=== PATIENT | female | born 1955 | race African-American/Black ===

== ENCOUNTER → 2020-05-05 15:02 | Outpatient (BNVA) | payer OTHER, SELFPAY | PROVIDERS: PCP Internal Medicine; Referring Provider Internal Medicine; Visit Provider Anesthesiology | DX: M47.816 Spondylosis without myelopathy or radiculopathy, lumbar region (principal); L40.9 Psoriasis, unspecified; M79.7 Fibromyalgia; M15.9 Polyosteoarthritis, unspecified | CPT/HCPCS: 99204 ==

== ENCOUNTER → 2020-06-02 09:30 | Outpatient (BNVA) | payer OTHER, SELFPAY | PROVIDERS: PCP Internal Medicine; Referring Provider Internal Medicine; Visit Provider Internal Medicine | DX: G47.33 Obstructive sleep apnea (adult) (pediatric) (principal); E66.9 Obesity, unspecified; Z99.89 Dependence on other enabling machines and devices | CPT/HCPCS: 99212 ==

== ENCOUNTER → 2020-06-09 08:11 | Outpatient (BNVA) | payer OTHER, SELFPAY | PROVIDERS: PCP Internal Medicine; Referring Provider Internal Medicine; Visit Provider Dietitian, Registered | DX: Z76.89 Persons encountering health services in other specified circumstances (principal) ==

== ENCOUNTER → 2020-07-10 11:31 | Outpatient (BNVA) | payer OTHER, SELFPAY | PROVIDERS: PCP Internal Medicine; Referring Provider Internal Medicine; Visit Provider Surgery | DX: K91.2 Postsurgical malabsorption, not elsewhere classified (principal); E66.9 Obesity, unspecified; Z68.30 Body mass index [BMI] 30.0-30.9, adult; Z90.3 Acquired absence of stomach [part of] | CPT/HCPCS: 99212 ==

== ENCOUNTER 2020-07-15 12:08 | Outpatient (REF) | payer OTHER, SELFPAY ==
[2020-07-15 13:11] LABS: Basophils Percent Auto 0.3 % (0-2); Eosinophils Percent Auto 0.6 % (0-4); Hematocrit 41.7 % (37-47); Hemoglobin 13.1 g/dl (12.0-16.0); Lymphocytes Absolute Auto 1.2 X10*3/uL (1.2-4.9); Lymphocytes Percent Auto 36.3 % (20-40); Mean Corpuscular HGB Conc 31.4 g/dl (31.0-35.0); Mean Corpuscular Hemoglobin 27.2 pg (27.0-33.0); Mean Corpuscular Volume 86.7 fL (80-98); Mean Platelet Volume 10.6 fL (9.4-12.3); Monocytes Absolute Auto 0.3 X10*3/uL (0.1-1.2); Monocytes Percent Auto 7.7 % (2-11); Neutrophils Absolute Auto 1.9 X10*3/uL (2.0-8.3); Neutrophils Percent Auto 55.1 % (45-73); Platelet Count 156 X10*3/uL (160-400); Red Blood Count 4.81 X10*6/uL (4.20-5.50); Red Cell Distribution Width 15.2 % (11.0-16.0); White Blood Count 3.4 X10*3/uL (4.8-10.8)
[2020-07-15 13:13] LABS: MANUAL DIFF FLAG NO
[2020-07-15 13:35] LABS: C Reactive Protein 0.11 mg/dL (< or = 0.50)
[2020-07-15 13:36] LABS: Alanine Aminotransferase 15 U/L (0-31); Albumin Level 4.2 g/dL (3.5-5.0); Alkaline Phosphatase 65 U/L (39-117); Anion Gap 10 (12-20); Aspartate Amino Transferase 18 U/L (5-31); Bilirubin Total 0.6 mg/dL (0.0-1.0); Blood Urea Nitrogen 17 mg/dL (9-16); Calcium 8.9 mg/dL (8.4-10.2); Carbon Dioxide 36 mmol/L (22-29); Chloride 105 mmol/L (96-108); Cholesterol 213 mg/dL; Estimated Glomerular Filt Rate > 60; Glucose Fasting 80 mg/dL (60-99); HDL Cholesterol 55 mg/dL; Iron 89 mcg/dL (30-160); LDL Cholesterol Calculated 147 mg/dl; Percent Iron Saturation 35 % (15-50); Potassium 4.5 mmol/l (3.3-5.1); Sodium 146 mmol/L (135-145); Total Iron Binding Capacity 257 mcg/dL (228-428); Total Protein 6.9 g/dL (6.5-8.0); Triglycerides 57 mg/dL; Unsaturated Iron Binding 168 ug/dL
[2020-07-15 13:58] LABS: Thyroid Stimulating Hormone 1.16 uIU/mL (0.32-4.0); Vitamin D 25-OH Total 38.4 ng/mL (>30)
[2020-07-15 14:45] LABS: Vitamin B12 683 pg/mL (200-900)
[2020-07-19 12:23] LABS: Zinc 71 mcg/dL (60-130)
[2020-07-21 06:37] LABS: Vitamin B1 23 nmol/L (8-30)
[2020-07-21 16:48] LABS: Vitamin A 35 mcg/dL (38-98)
== END 2020-07-15 12:09 | disposition home or self-care (01) ==
LOC: HO.LAB 12:08
PROVIDERS: PCP Internal Medicine; Referring Provider Internal Medicine; Visit Provider Surgery
DX: M54.2 Cervicalgia (principal); I10 Essential (primary) hypertension
CPT/HCPCS: 36415; 80053; 80061; 82306; 82550; 82607; 83540; 84425; 84443; 84590; 84630; 85025; 86140

== ENCOUNTER → 2020-08-07 08:08 | Outpatient (BNVA) | payer MEDICARE, MEDICAID, SELFPAY | PROVIDERS: PCP Internal Medicine; Visit Provider Dietitian, Registered | DX: Z76.89 Persons encountering health services in other specified circumstances (principal) ==

== ENCOUNTER 2020-09-06 14:23 | Outpatient (REF) | payer MEDICARE, MEDICAID, SELFPAY ==
--- NOTE | ~2020-09-06 | MM_ITS ---
EXAMINATION: MM SCREENING DIGITAL BREAST TOMOSYNTHESIS, BILATERAL CLINICAL INFORMATION: Screening. Asymptomatic. Remote reduction mammoplasty, 1993. The lifetime risk of breast cancer based on the Tyrer-Cuzick Model is 9%. COMPARISON: Mammography: 04/07/2019, 01/21/2018, 12/28/2016 TECHNIQUE: Digital breast tomosynthesis is performed in both the craniocaudal and mediolateral oblique views along with computer-aided detection (CAD). Synthesized 2D images are generated from the tomosynthesis. FINDINGS: There are scattered areas of fibroglandular density (ACR BI-RADS breast composition Category b). There are no significant masses, abnormal calcifications, or other abnormalities. There is minor scarring and scattered bilateral benign round and rim calcifications again seen consistent with the remote reduction mammoplasty. No significant changes. MM/MM tomosynthesis screening BI IMPRESSION: No mammographic evidence of malignancy. ASSESSMENT: BI-RADS 2: Benign RECOMMENDATION: Routine annual mammography screening. This patient's information was entered into a reminder system with a target due date for their next mammogram.
== END 2020-09-06 14:24 | disposition home or self-care (01) ==
LOC: HO.MAMMO 14:23
PROVIDERS: Visit Provider Internal Medicine
DX: Z12.31 Encounter for screening mammogram for malignant neoplasm of breast (principal)
CPT/HCPCS: 77063; 77067

== ENCOUNTER 2020-10-21 12:09 | Outpatient (REF) | payer MEDICARE, MEDICAID, SELFPAY ==
[2020-10-27 10:31] LABS: Vitamin A 43 mcg/dL (38-98)
== END 2020-10-21 12:10 | disposition home or self-care (01) ==
LOC: HO.LAB 12:09
PROVIDERS: PCP Internal Medicine; Visit Provider Surgery
DX: Z01.818 Encounter for other preprocedural examination (principal); E50.9 Vitamin A deficiency, unspecified
CPT/HCPCS: 36415; 84590

== ENCOUNTER → 2020-12-01 09:04 | Outpatient (BNVA) | payer MEDICARE, MEDICAID, SELFPAY | PROVIDERS: PCP Internal Medicine; Visit Provider Internal Medicine | DX: E66.9 Obesity, unspecified (principal); G47.33 Obstructive sleep apnea (adult) (pediatric); Z99.89 Dependence on other enabling machines and devices | CPT/HCPCS: 99212 ==

== ENCOUNTER 2021-01-16 09:07 | Outpatient (REF) | payer MEDICARE, MEDICAID, SELFPAY ==
--- NOTE | 2021-01-16 10:44 | MHC.AU.HAS ---
Hearing Aid Evaluation Date of Visit: 01/16/21 Historical Information: Description of Hearing: Bilateral moderate sensorineural hearing loss at 2968-7851 Hz Current personal amplification information, if applicable: None Summary: Based on these test results, Quinten is not able to hear important consonant sounds of speech which will cause increasing difficulties understanding speech. She currently needs to use a speaker phone when communicating on any phone. Binaural hearing aids with bluetooth capability is recommended to facilitate communication. Medical clearance from Dr. Cash in chart Hearing Aid Prescription: Based on the individual?s shared listening needs, communication environments, dexterity, desire for connectivity, and personal preferences, the following prescription for amplification has been made: Right ear: Mid Level Java Developer: Phonak Model: [place] P 70 13T Battery Size: 13 Color: [place] Brown Milieu Coordinator: #1 Medium Type of Dome: Open Left ear: Mid Level Java Developer: Phonak Model: [place] P 70-13T Battery Size: 13 Color: [place] Brown Milieu Coordinator: #1 Medium Type of Dome: Open Plan of Care: Patient wishes to purchase hearing aids as prescribed Action Taken/Action Needed: Hearing Instrument Fitting to be scheduled when materials arrive Comments: Primary Diagnosis: H90.3 Bilateral Sensorineural Hearing Loss Signature: Provider: Parvin Sun, ANGELO-A
== END 2021-01-16 09:08 | disposition home or self-care (01) ==
LOC: HO.HAP 09:07
PROVIDERS: Visit Provider Internal Medicine
DX: Z46.1 Encounter for fitting and adjustment of hearing aid (principal); H90.3 Sensorineural hearing loss, bilateral
CPT/HCPCS: 92591

== ENCOUNTER → 2021-01-26 11:57 | Outpatient (BNVA) | payer MEDICARE, MEDICAID, SELFPAY | PROVIDERS: PCP Internal Medicine; Referring Provider Internal Medicine; Visit Provider Dietitian, Registered | DX: E66.9 Obesity, unspecified (principal); Z68.32 Body mass index [BMI] 32.0-32.9, adult | CPT/HCPCS: 97803 ==

== ENCOUNTER 2021-01-28 10:33 | Outpatient (REF) | payer MEDICARE, MEDICAID, SELFPAY | END 2021-01-28 10:34 | disposition home or self-care (01) | LOC: HO.HAP 10:33 | PROVIDERS: Visit Provider Internal Medicine | DX: Z46.1 Encounter for fitting and adjustment of hearing aid (principal); H90.3 Sensorineural hearing loss, bilateral | CPT/HCPCS: 92595; V5011; V5020; V5160; V5261; V5266 ==

== ENCOUNTER 2021-02-03 15:40 | Outpatient (REF) | payer MEDICARE, MEDICAID, SELFPAY ==
[2021-02-03 16:14] LABS: MANUAL DIFF FLAG NO
[2021-02-03 16:21] LABS: Basophils Percent Auto 0.4 % (0-2); Eosinophils Absolute Auto 0.1 X10*3/uL (0.0-0.4); Eosinophils Percent Auto 1.1 % (0-4); Hematocrit 40.9 % (37-47); Hemoglobin 13.1 g/dl (12.0-16.0); Imm Gran Abs Auto 0.01 X10*3/uL (0.00-0.03); Imm Gran Pct Auto 0.2 % (0.0-0.4); Lymphocytes Absolute Auto 1.2 X10*3/uL (1.2-4.9); Lymphocytes Percent Auto 25.5 % (20-40); Mean Corpuscular Hemoglobin 27.7 pg (27.0-33.0); Mean Corpuscular Volume 86.5 fL (80-98); Mean Platelet Volume 10.2 fL (9.4-12.3); Monocytes Absolute Auto 0.4 X10*3/uL (0.1-1.2); Monocytes Percent Auto 7.8 % (2-11); Neutrophils Absolute Auto 3.1 X10*3/uL (2.0-8.3); Platelet Count 156 X10*3/uL (160-400); Red Blood Count 4.73 X10*6/uL (4.20-5.50); Red Cell Distribution Width 14.6 % (11.0-16.0); White Blood Count 4.7 X10*3/uL (4.8-10.8)
[2021-02-03 16:41] LABS: Alanine Aminotransferase 16 U/L (0-31); Alkaline Phosphatase 73 U/L (39-117); Anion Gap 12 (12-20); Aspartate Amino Transferase 19 U/L (5-31); Bilirubin Total 0.6 mg/dL (0.0-1.0); Blood Urea Nitrogen 20 mg/dL (9-16); Calcium 9.4 mg/dL (8.4-10.2); Carbon Dioxide 28 mmol/L (22-29); Chloride 106 mmol/L (96-108); Estimated Glomerular Filt Rate > 60; Glucose Random 87 mg/dL (60-115); Sodium 142 mmol/L (135-145)
[2021-02-06 16:32] LABS: TS Negative Control Passed; TS Panel A 0; TS Panel B 1; TS Positive Control Passed; TSpotTB Negative (SeeBelow)
== END 2021-02-03 15:41 | disposition home or self-care (01) ==
LOC: HO.LAB 15:40
PROVIDERS: PCP Internal Medicine; Visit Provider Dermatology
DX: Z11.1 Encounter for screening for respiratory tuberculosis (principal); L40.0 Psoriasis vulgaris; Z79.899 Other long term (current) drug therapy
CPT/HCPCS: 36415; 80053; 85025; 86481

== ENCOUNTER 2021-03-27 12:00 | Outpatient (REF) | payer MEDICARE, MEDICAID, SELFPAY ==
--- NOTE | ~2021-03-27 | XR_ITS ---
EXAMINATION: XR knee RT 4V CLINICAL INFORMATION: Reason for Exam RIGHT KNEE PAIN COMPARISON: None available at the time of this dictation. TECHNIQUE: frontal, lateral, tunnel and patella sunrise views FINDINGS: BONES: No fracture or dislocation is present. JOINTS: Narrowing of joint spaces and developed osteophytes from the edges of articular surfaces suggest degenerative osteoarthritis. Degenerative osteoarthritic changes of the patellofemoral joint. SOFT TISSUE: Normal XR/XR knee RT 4V IMPRESSION: Tricompartmental moderate to severe degenerative osteoarthritis.
[2021-03-27 13:15] LABS: MANUAL DIFF FLAG NO
[2021-03-27 13:28] LABS: Basophils Percent Auto 0.3 % (0-2); Eosinophils Percent Auto 0.8 % (0-4); Hematocrit 43.2 % (37-47); Hemoglobin 13.4 g/dl (12.0-16.0); Imm Gran Abs Auto 0.01 X10*3/uL (0.00-0.03); Imm Gran Pct Auto 0.3 % (0.0-0.4); Lymphocytes Absolute Auto 1.2 X10*3/uL (1.2-4.9); Lymphocytes Percent Auto 32.8 % (20-40); Mean Corpuscular Hemoglobin 27.2 pg (27.0-33.0); Mean Corpuscular Volume 87.6 fL (80-98); Mean Platelet Volume 10.4 fL (9.4-12.3); Monocytes Absolute Auto 0.3 X10*3/uL (0.1-1.2); Monocytes Percent Auto 7.2 % (2-11); Neutrophils Absolute Auto 2.2 X10*3/uL (2.0-8.3); Neutrophils Percent Auto 58.6 % (45-73); Platelet Count 167 X10*3/uL (160-400); Red Blood Count 4.93 X10*6/uL (4.20-5.50); White Blood Count 3.8 X10*3/uL (4.8-10.8)
[2021-03-27 13:32] LABS: Alanine Aminotransferase 14 U/L (0-31); Albumin Level 4.2 g/dL (3.5-5.0); Alkaline Phosphatase 66 U/L (39-117); Anion Gap 10 (12-20); Aspartate Amino Transferase 18 U/L (5-31); Bilirubin Total 0.5 mg/dL (0.0-1.0); Blood Urea Nitrogen 20 mg/dL (9-16); C Reactive Protein 0.14 mg/dL (< or = 0.50); Calcium 9.6 mg/dL (8.4-10.2); Carbon Dioxide 31 mmol/L (22-29); Chloride 109 mmol/L (96-108); Cholesterol 241 mg/dL; Estimated Glomerular Filt Rate > 60; Glucose Fasting 93 mg/dL (60-99); HDL Cholesterol 57 mg/dL; LDL Cholesterol Calculated 170 mg/dl; Potassium 4.3 mmol/L (3.3-5.1); Sodium 146 mmol/L (135-145); Total Protein 7.2 g/dL (6.5-8.0); Triglycerides 71 mg/dL
[2021-03-27 13:59] LABS: Vitamin B12 543 pg/mL (200-900)
== END 2021-03-27 12:01 | disposition home or self-care (01) ==
LOC: HO.XRAY 12:00
PROVIDERS: PCP Internal Medicine; Visit Provider Internal Medicine
DX: M25.561 Pain in right knee (principal); I10 Essential (primary) hypertension; E78.00 Pure hypercholesterolemia, unspecified
CPT/HCPCS: 36415; 73564; 80053; 80061; 82550; 82607; 85025; 86140

== ENCOUNTER → 2021-04-24 14:55 | Outpatient (BNVA) | payer MEDICARE, MEDICAID, SELFPAY | PROVIDERS: Visit Provider Physician Assistant | DX: M79.7 Fibromyalgia (principal); M54.16 Radiculopathy, lumbar region | CPT/HCPCS: 99212 ==

== ENCOUNTER 2021-05-21 08:55 | Emergency (ER) | payer OTHER, MEDICARE, MEDICAID, SELFPAY ==
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
[2021-05-21 09:10] VITALS: BP 164/102; PULSE 72; RESP 18; TEMP 35.9; O2SAT 100; BMI 34.0
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
[2021-05-21] MEDS: Ketorolac Tromethamine 15 MG/ML VIAL IM (10:37)
[2021-05-21 11:40] VITALS: RESP 18
[2021-05-21 12:10] VITALS: BP 181/96; RESP 18; O2SAT 96
== END 2021-05-21 12:14 | disposition home or self-care (01) ==
PROVIDERS: Emergency Provider Emergency Medicine Emergency Medical Services; PCP Internal Medicine
DX: S70.02XA Contusion of left hip, initial encounter (principal); M54.50 Low back pain, unspecified; M25.552 Pain in left hip; V43.52XA Car driver injured in collision with other type car in traffic accident, initial encounter; Y93.9 Activity, unspecified; Y92.410 Unspecified street and highway as the place of occurrence of the external cause; Y99.9 Unspecified external cause status; Z79.899 Other long term (current) drug therapy
CPT/HCPCS: 73502; 96372; 99284; J1885

== ENCOUNTER → 2021-06-08 09:34 | Outpatient (BNVA) | payer MEDICARE, MEDICAID, SELFPAY | PROVIDERS: PCP Internal Medicine; Visit Provider Internal Medicine | DX: G47.33 Obstructive sleep apnea (adult) (pediatric) (principal); E66.9 Obesity, unspecified; Z68.32 Body mass index [BMI] 32.0-32.9, adult; Z99.89 Dependence on other enabling machines and devices; Z71.3 Dietary counseling and surveillance; Z79.899 Other long term (current) drug therapy | CPT/HCPCS: 99212 ==

== ENCOUNTER 2021-08-18 14:25 | Outpatient (REF) | payer MEDICARE, MEDICAID, SELFPAY ==
[2021-08-18 16:12] LABS: MANUAL DIFF FLAG NO
[2021-08-18 16:18] LABS: Basophils Percent Auto 0.5 % (0-2); Eosinophils Absolute Auto 0.1 X10*3/uL (0.0-0.4); Eosinophils Percent Auto 1.4 % (0-4); Hematocrit 41.1 % (37.0-47.0); Imm Gran Abs Auto 0.02 X10*3/uL (0.00-0.03); Imm Gran Pct Auto 0.5 % (0.0-0.4); Lymphocytes Absolute Auto 1.3 X10*3/uL (1.2-4.9); Lymphocytes Percent Auto 30.1 % (20-40); Mean Corpuscular HGB Conc 31.6 g/dl (31.0-35.0); Mean Corpuscular Hemoglobin 28.1 pg (27.0-33.0); Mean Corpuscular Volume 88.8 fL (80.0-98.0); Mean Platelet Volume 10.5 fL (9.4-12.3); Monocytes Absolute Auto 0.3 X10*3/uL (0.1-1.2); Monocytes Percent Auto 7.8 % (2-11); Neutrophils Absolute Auto 2.6 x10*3/uL (2.0-8.3); Neutrophils Percent Auto 59.7 % (45-73); Platelet Count 175 X10*3/uL (160-400); Red Blood Count 4.63 X10*6/uL (4.20-5.50); Red Cell Distribution Width 15.2 % (11.0-16.0); White Blood Count 4.4 X10*3/uL (4.8-10.8)
[2021-08-18 16:25] LABS: Estimated Average Glucose 117 mg/dL; Hemoglobin A1c % 5.7 %
[2021-08-18 16:40] LABS: Anion Gap 11 (12-20); Blood Urea Nitrogen 15 mg/dL (9-16); Calcium 9.5 mg/dL (8.4-10.2); Carbon Dioxide 29 mmol/L (22-29); Chloride 105 mmol/L (96-108); Cholesterol 170 mg/dL; Estimated Glomerular Filt Rate > 60; Glucose Random 86 mg/dL (60-115); HDL Cholesterol 55 mg/dL; Iron 93 mcg/dL (30-160); LDL Cholesterol Calculated 100 mg/dl; Percent Iron Saturation 34 % (15-50); Sodium 141 mmol/L (135-145); Total Iron Binding Capacity 277 mcg/dL (228-428); Triglycerides 75 mg/dL; Unsaturated Iron Binding 184 ug/dL
[2021-08-18 17:01] LABS: Ferritin 154 ng/mL (10-250); TSH reflex Free T4 1.59 uIU/mL (0.32-4.0); Vitamin D 25-OH Total 32.2 ng/mL (>30)
[2021-08-18 17:13] LABS: Folate 16.3 ng/mL (> or = 4.0); Vitamin B12 516 pg/mL (200-900)
[2021-08-19 14:46] LABS: Calcium (PTHI) 9.7 mg/dL (8.6-10.4); PTHI 43 pg/mL (14-64)
[2021-08-21 03:22] LABS: Zinc 70 mcg/dL (60-130)
[2021-08-21 18:12] LABS: Vitamin A 42 mcg/dL (38-98)
[2021-08-23 06:16] LABS: Vitamin B1 17 nmol/L (8-30)
== END 2021-08-18 14:26 | disposition home or self-care (01) ==
LOC: HO.LAB 14:25
PROVIDERS: PCP Internal Medicine; Referring Provider Internal Medicine; Visit Provider Physician Assistant Surgical
DX: E66.9 Obesity, unspecified (principal); Z68.33 Body mass index [BMI] 33.0-33.9, adult; Z71.3 Dietary counseling and surveillance
CPT/HCPCS: 36415; 80048; 80061; 82306; 82607; 82728; 82746; 83036; 83540; 83970; 84425; 84443; 84590; 84630; 85025; 86140; 99212

== ENCOUNTER 2021-10-07 12:32 | Outpatient (REF) | payer MEDICARE, MEDICAID, SELFPAY ==
--- NOTE | ~2021-10-07 | XR_ITS ---
EXAMINATION: XR SINUSES CLINICAL INFORMATION: Pain COMPARISON: None TECHNIQUE: Bender, [place], lateral, and SMV XR/XR sinus min 3V FINDINGS/IMPRESSION: Visualized paranasal sinuses appear clear. No air-fluid levels. If clinical concern for sinusitis persists, CT sinuses be more sensitive for evaluation.
[2021-10-07 14:15] LABS: Anion Gap 12 (12-20); Blood Urea Nitrogen 17 mg/dL (9-16); C Reactive Protein 0.13 mg/dL (< or = 0.50); Calcium 10.4 mg/dL (8.4-10.2); Carbon Dioxide 33 mmol/L (22-29); Chloride 106 mmol/L (96-108); Estimated Glomerular Filt Rate 58; Glucose Random 78 mg/dL (60-115); Potassium 4.5 mmol/L (3.3-5.1); Sodium 146 mmol/L (135-145)
== END 2021-10-07 12:33 | disposition home or self-care (01) ==
LOC: HO.10HDL 12:32
PROVIDERS: Visit Provider Internal Medicine
DX: I10 Essential (primary) hypertension (principal); R51.9 Headache, unspecified; L40.9 Psoriasis, unspecified
CPT/HCPCS: 36415; 70220; 80048; 86140

== ENCOUNTER 2021-10-29 13:25 | Outpatient (REF) | payer MEDICARE, MEDICAID, SELFPAY ==
--- NOTE | ~2021-10-29 | MM_ITS ---
EXAMINATION: MM SCREENING DIGITAL BREAST TOMOSYNTHESIS, BILATERAL CLINICAL INFORMATION: Screening. Asymptomatic. Status post breast reduction surgery. The lifetime risk of breast cancer based on the Tyrer-Cuzick Model is 5%. COMPARISON: Mammography: September 06, 2020 and studies dating back to October 31, 2013 TECHNIQUE: Digital breast tomosynthesis is performed in both the craniocaudal and mediolateral oblique views along with computer-aided detection (CAD). Synthesized 2D images are generated from the tomosynthesis. FINDINGS: There are scattered areas of fibroglandular density (ACR BI-RADS breast composition Category b). There are no significant masses, abnormal calcifications, or other abnormalities. MM/MM tomosynthesis screening BI IMPRESSION: There are no significant changes from prior study. ASSESSMENT: BI-RADS 1: Negative RECOMMENDATION: Routine annual mammography screening. This patient's information was entered into a reminder system with a target due date for their next mammogram.
--- NOTE | ~2021-10-29 | MM_ITS ---
EXAMINATION: BONE DENSITOMETRY CLINICAL INDICATION: Asymptomatic menopausal state. COMPARISON: Previous BD dated 09/22/2012 and baseline BD dated 01/02/2010. TECHNIQUE: Using a Rivalf[employer] DXA System (software version: 13.1) manufactured by [employer], dual-energy x-ray absorptiometry was performed of the lumbar spine and left hip. The images are of good technical quality. Summary results are attached. FINDINGS: AP SPINE L1-L2 (excluding L3 and L4): The data of L1-L4 has been changed to exclude the L3 and L4 vertebral bodies, because degenerative changes at these levels may cause overestimation of lumbar spine density. Current: BMD 1.371 g/cm2, Z-score 1.5, T-score 1.7, normal, 3.5% increase from previous, 2.8% increase from baseline (<5% change is not significant). Prior: BMD 1.324 g/cm2. Baseline: BMD 1.334 g/cm2. LEFT FEMUR, NECK: Current: BMD 1.021 g/cm2, Z-score -0.3, T-score -0.1, normal. Prior: BMD 1.063 g/cm2. Baseline: BMD 1.063 g/cm2. LEFT FEMUR, TOTAL: Current: BMD 1.141 g/cm2, Z-score 0.5, T-score 1.1, normal, 6.3% decrease from previous, 5.5% decrease from baseline (<5% change is not significant). Prior: BMD 1.218 g/cm2. Baseline: BMD 1.207 g/cm2. IDENTIFIED RISK FACTORS: Osteoporosis, low calcium intake. Early menopause, secondary osteoporosis, thiazide. HISTORY OF FRACTURE: None listed. MEDICATIONS: Calcium supplements or multivitamin, vitamin D. MM/XR DEXA axial skeleton IMPRESSION: 1. DIAGNOSIS: Normal bone density based on the lowest T-score value of -0.1 in the femoral neck applying World Health Organization criteria. 2. 10-YEAR FRACTURE RISK PREDICTION, FRAX: According to the guidelines, FRAX calculation should only be performed on patients in the osteopenia bone density category. Therefore, FRAX was not performed on this patient. 3. Treatment Recommendations: NOF guidelines recommend consideration for treatment in postmenopausal women and men age 50 and older presenting with the following: -A hip or vertebral (clinical or morphometric) fracture. -T-score less than or equal to -2.5 at the femoral neck or spine after appropriate evaluation to exclude secondary causes. -Low bone mass at the hip or spine and a 10-year fracture probability by FRAX of greater than or equal to 3% for hip fracture or greater than or equal to 20% for major osteoporotic fracture based on the [place] adapted WHO algorithm. 4. Other Recommendations: All treatment decisions require clinical judgment and consideration of individual patient factors, including patient preferences, comorbidities, previous drug use, risk factors not captured in the FRAX model (e.g. frailty, falls, vitamin D deficiency, increased bone turnover, interval significant decline in bone density) and possible under or overestimation of fracture risk by FRAX. FUTURE SCAN RECOMMENDATION: People with diagnosed cases of osteoporosis or at high risk for fracture should have regular bone mineral density tests. For patients eligible for Medicare, routine testing is allowed once every 2 years. The testing frequency can be increased to one year for patients who have rapidly progressing disease, those who are receiving or discontinuing medical therapy to restore bone mass, or have additional risk factors.
== END 2021-10-29 13:26 | disposition home or self-care (01) ==
LOC: HO.MAMMO 13:25
PROVIDERS: PCP Internal Medicine; Visit Provider Internal Medicine
DX: Z12.31 Encounter for screening mammogram for malignant neoplasm of breast (principal); Z13.820 Encounter for screening for osteoporosis; Z78.0 Asymptomatic menopausal state; Z79.899 Other long term (current) drug therapy
CPT/HCPCS: 77063; 77067; 77080

== ENCOUNTER → 2021-11-17 10:35 | Outpatient (BNVA) | payer MEDICARE, MEDICAID, SELFPAY | PROVIDERS: PCP Internal Medicine; Visit Provider Physician Assistant | DX: E66.9 Obesity, unspecified (principal); Z68.34 Body mass index [BMI] 34.0-34.9, adult | CPT/HCPCS: 99212 ==

== ENCOUNTER → 2021-11-24 09:58 | Outpatient (BNVA) | payer MEDICARE, MEDICAID, SELFPAY | PROVIDERS: PCP Internal Medicine; Visit Provider Internal Medicine | DX: G47.33 Obstructive sleep apnea (adult) (pediatric) (principal); E66.9 Obesity, unspecified; Z99.89 Dependence on other enabling machines and devices; Z68.34 Body mass index [BMI] 34.0-34.9, adult | CPT/HCPCS: 99212 ==

== ENCOUNTER → 2021-12-02 17:00 | Outpatient (BNVA) | payer MEDICARE, MEDICAID, SELFPAY | PROVIDERS: PCP Internal Medicine; Visit Provider Counselor Mental Health | DX: F43.20 Adjustment disorder, unspecified (principal); Z98.84 Bariatric surgery status | CPT/HCPCS: 90853 ==

== ENCOUNTER → 2021-12-17 08:17 | Outpatient (BNVA) | payer MEDICARE, MEDICAID, SELFPAY | PROVIDERS: PCP Internal Medicine; Visit Provider Physician Assistant | DX: E66.9 Obesity, unspecified (principal); Z98.84 Bariatric surgery status; Z68.34 Body mass index [BMI] 34.0-34.9, adult | CPT/HCPCS: 99212; Q3014 ==

== ENCOUNTER 2022-02-09 11:03 | Outpatient (REF) | payer MEDICARE, MEDICAID, SELFPAY ==
[2022-02-09 13:51] LABS: MANUAL DIFF FLAG NO
[2022-02-09 14:03] LABS: Basophils Percent Auto 0.2 % (0-2); Eosinophils Absolute Auto 0.1 X10*3/uL (0.0-0.4); Eosinophils Percent Auto 1.2 % (0-4); Hematocrit 42.4 % (37.0-47.0); Hemoglobin 13.3 g/dl (12.0-16.0); Lymphocytes Absolute Auto 1.2 X10*3/uL (1.2-4.9); Lymphocytes Percent Auto 29.5 % (20-40); Mean Corpuscular HGB Conc 31.4 g/dl (31.0-35.0); Mean Corpuscular Hemoglobin 27.3 pg (27.0-33.0); Mean Corpuscular Volume 86.9 fL (80.0-98.0); Mean Platelet Volume 10.7 fL (9.4-12.3); Monocytes Absolute Auto 0.4 X10*3/uL (0.1-1.2); Monocytes Percent Auto 9.3 % (2-11); Neutrophils Absolute Auto 2.5 x10*3/uL (2.0-8.3); Neutrophils Percent Auto 59.8 % (45-73); Platelet Count 168 X10*3/uL (160-400); Red Blood Count 4.88 X10*6/uL (4.20-5.50); Red Cell Distribution Width 15.6 % (11.0-16.0); White Blood Count 4.2 X10*3/uL (4.8-10.8)
[2022-02-09 14:18] LABS: Alanine Aminotransferase 17 U/L (0-31); Albumin Level 4.1 g/dL (3.5-5.0); Alkaline Phosphatase 73 U/L (39-117); Anion Gap 10 (12-20); Aspartate Amino Transferase 19 U/L (5-31); Bilirubin Total 0.5 mg/dL (0.0-1.0); Blood Urea Nitrogen 13 mg/dL (9-16); C Reactive Protein 0.18 mg/dL (< or = 0.50); Carbon Dioxide 31 mmol/L (22-29); Chloride 106 mmol/L (96-108); Estimated Glomerular Filt Rate > 60; Glucose Fasting 95 mg/dL (60-99); Potassium 4.7 mmol/L (3.3-5.1); Sodium 142 mmol/L (135-145)
[2022-02-09 14:42] LABS: Thyroid Stimulating Hormone 2.21 uIU/mL (0.32-4.0)
[2022-02-09 15:13] LABS: Vitamin B12 543 pg/mL (200-900)
[2022-02-16 15:18] LABS: Anti Nuclear Antibody Pattern Nuclear, Speckled; Anti Nuclear Antibody Screen POSITIVE (NEGATIVE); Anti Nuclear Antibody Titer 1:40 titer
== END 2022-02-09 11:04 | disposition home or self-care (01) ==
LOC: HO.10HDL 11:03
PROVIDERS: Visit Provider Internal Medicine
DX: I10 Essential (primary) hypertension (principal); R53.83 Other fatigue; M54.2 Cervicalgia; M54.9 Dorsalgia, unspecified
CPT/HCPCS: 36415; 80053; 82607; 84443; 84484; 85025; 86038; 86039; 86140

== ENCOUNTER 2022-03-12 14:15 | Outpatient (REF) | payer MEDICARE, MEDICAID, SELFPAY ==
--- NOTE | ~2022-03-12 | XR_ITS ---
EXAMINATION: XR CHEST CLINICAL INFORMATION: Shortness of breath and chest tightness COMPARISON: Previous chest x-ray most recent March 2019 TECHNIQUE: 2 views of the chest were obtained. FINDINGS: The cardiac and mediastinal contours are stable. The lungs are clear. There is no pleural effusion or pneumothorax. There are degenerative changes of the spine. XR/XR chest 2V IMPRESSION: No evidence for acute disease in the chest.
== END 2022-03-12 14:16 | disposition home or self-care (01) ==
LOC: HO.XRAY 14:15
PROVIDERS: PCP Internal Medicine; Visit Provider Internal Medicine
DX: R06.02 Shortness of breath (principal); R07.89 Other chest pain
CPT/HCPCS: 71046

== ENCOUNTER → 2022-04-28 07:34 | Outpatient (BNVA) | payer MEDICARE, MEDICAID, SELFPAY | PROVIDERS: PCP Internal Medicine; Visit Provider Student in an Organized Health Care Education/Training Program | DX: L40.9 Psoriasis, unspecified (principal); M54.50 Low back pain, unspecified; G47.33 Obstructive sleep apnea (adult) (pediatric); J30.9 Allergic rhinitis, unspecified; E66.9 Obesity, unspecified; Z99.89 Dependence on other enabling machines and devices; Z68.35 Body mass index [BMI] 35.0-35.9, adult | CPT/HCPCS: 99202; 99212 ==

== ENCOUNTER 2022-06-10 17:35 | Emergency (ER) | payer MEDICARE, MEDICAID, SELFPAY ==
[2022-06-10 17:45] VITALS: BP 172/95; PULSE 96; RESP 18; TEMP 36.9; O2SAT 97; BMI 36.9
[2022-06-10] MEDS: diphenhydrAMINE HCL 25 MG CAPSULE 50 MG PO (17:49)
--- NOTE | 2022-06-10 17:55 | ED.ALLEREA ---
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 Patient reports she always eats shrimp and she never had a reaction. She is unsure if it is related to the dust that she was exposed to when she was helping her friend. Otherwise she denies any new medications, foods, detergents, lotions, recent tick or bug bites or any other symptoms complaints or concerns at this time. 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) <SAGE Lozano Last Filed: 06/10/22 18:53> Exposure: unknown <SAGE Lozano Last Filed: 06/10/22 18:53> Symptoms: rash and itching <SAGE Lozano Last Filed: 06/10/22 18:53> Severity: mild <SAGE Lozano Last Filed: 06/10/22 18:53> Treatment prior to arrival: none <SAGE Lozano Last Filed: 06/10/22 18:53> Previous Allergic Reaction History: none <SAGE Lozano Last Filed: 06/10/22 18:53> Related Data Home medications: Home Medications Medication Instructions Recorded Confirmed [id number] 45 mg-folic 1 cap PO DAILY@0600 06/02/20 04/28/22 acid 800 mcg-vit K 120 mcg capsule (Bariatric Multivitamins) irbesartan 150 mg tablet 1 tab PO DAILY 08/25/20 04/28/22 oxygen-air delivery systems ##1 12/01/20 04/28/22 atorvastatin 20 mg tablet 20 mg PO DAILY 06/08/21 04/28/22 calcium citrate 315 mg-vitamin D3 1 tab PO BID 11/17/21 04/28/22 5 mcg (200 unit) tablet (Calcium Citrate + D) acetaminophen 500 mg tablet 1,000 mg PO Q6H PRN 04/28/22 04/28/22 (Tylenol Extra Strength) furosemide 40 mg tablet 40 mg PO DAILY 04/28/22 04/28/22 hydralazine 50 mg tablet 50 mg PO DAILY 04/28/22 04/28/22 risankizumab-rzaa 150 mg/mL 150 mg subcut Q12W 04/28/22 04/28/22 subcutaneous pen injector (Skyrizi) Previous Rx's Medication Instructions Recorded cetirizine 10 mg tablet (Zyrtec) 10 mg PO DAILY PRN allergy 06/10/22 symptoms #30 tabs diphenhydramine HCl 25 mg tablet 50 mg PO TID PRN allergic reaction 06/10/22 (Benadryl Allergy) #30 tabs epinephrine 0.3 mg/0.3 mL 0.3 mg (0.3 mL) IM Q20M PRN 06/10/22 injection, auto-injector (EpiPen) anaphylaxis #2 ea famotidine 20 mg tablet (Pepcid) 20 mg PO BID rash #30 tabs 06/10/22 prednisone 20 mg tablet 40 mg PO DAILY rash 5 days #10 tabs 06/10/22 <SAGE Rubin - Last Filed: 06/10/22 17:57> Allergies/adverse reactions: Allergies Allergy/AdvReac Type Severity Reaction Status Date / Time No Known Allergies Allergy Verified 06/10/22 17:44 [No Known Allergies*] <SAGE Rubin - Last Filed: 06/10/22 17:57> Review of Systems Review of Systems: Constitutional : No Fever, No Chills , no body aches, no recent illness Head/Face: No facial swelling, No facial redness ENT/Mouth : No oral/throat swelling, No Hoarseness, No Swallowing Difficulty Eyes: No Eye Pain, No Swelling, No Redness Cardiovascular : No Chest Pain, No SOB, No palpitations Respiratory : No Cough, No Sputum, No Wheezing, No Smoke Exposure, No Dyspnea Gastrointestinal : No Nausea, No Vomiting, No Diarrhea, No abdominal Pain Genitourinary : No Dysuria, No Urinary Frequency, No Hematuria Musculoskeletal : No joint pain, No Myalgias, No Joint Swelling Skin : No Skin Lesions, positive rash Neuro : No Weakness, No Numbness, No Headache, No dizziness, No tingling Psych : No Anxiety/Panic, No Depression Heme/Lymph: No Bruising, No Lymphadenopathy Endocrine : No Polyuria, No Polydipsia Denies changes in lotions or detergents. Denies new medications or any changes in medications. Denies drainage from rash. Denies any recent sick contacts or recent travel. <SAGE Lozano - Last Filed: 06/10/22 18:53> Yes all other systems are reviewed and are negative <SAGE Lozano - Last Filed: 06/10/22 18:53> [facility] Past Medical History Attestation statement: The following information was validated with the patient. <SAGE Lozano - Last Filed: 06/10/22 18:53> Source: old records reviewed and nursing notes reviewed <ASGE Lozano - Last Filed: 06/10/22 18:53> Medical History: Medical History Allergic rhinitis Dysfunction of right rotator cuff Fibromyalgia Hyperlipidemia Hypertension Low vitamin D level Neck arthritis Obesity (BMI 30.0-34.9) ZURI on CPAP Psoriasis Seasonal allergies Spinal stenosis <SAGE Rubin - Last Filed: 06/10/22 17:57> Surgical History: Surgical History History of appendectomy History of cataract surgery History of colonoscopy History of myomectomy History of partial hysterectomy History of repair of hiatal hernia History of sinus surgery Hx of breast reduction, elective Status post laparoscopic sleeve gastrectomy <SAGE Rubin - Last Filed: 06/10/22 17:57> Family History Family History: Family History Father Unknown family medical history Mother Alive and well Diabetes mellitus Brother Alive and well Brother Alive and well Sister Alive and well <SAGE Rubin - Last Filed: 06/10/22 17:57> Social History Social History: Social History Household Members Other:: lives alone Housing: Apartment Alcohol intake: never Patient Tobacco Use Status: Never used Tobacco Advance Directives: No Advance Directives Information Provided: No service: No Current occupational status: retired 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 Blood pressure normal. Heart rate normal. Respiration rate normal. Temperature normal. Oxygen saturation normal. <SAGE Lozano - Last Filed: 06/10/22 18:53> Appearance: Alert. Oriented X3. No acute distress. Head: Normal external exam. Normocephalic. Atraumatic. No angioedema noted. Eyes: PERRLA. EOMI. Conjunctiva and sclera normal. Eyelids normal. ENT: Pharynx normal. Uvula midline. Moist mucous membranes. No lesions/ulcerations or masses noted on the tongue. Normal voice. No trismus noted. No drooling noted. No muffled voice noted. Neck: Normal inspection. Neck supple. FROM. No adenopathy. Thyroid Normal. No tracheal deviation noted. No crepitus is noted. No meningeal signs. No neck mass noted. No signs of trauma noted. CVS: Normal heart rate and rhythm. Heart sound normal. Pulses normal throughout. No murmurs/rales/gallops. Respiratory: No respiratory distress. Painless inspiration. Breath sounds normal. No wheezes/rales/rhonchi noted. Chest nontender. No crepitus is noted. No signs of trauma noted. No accessory muscle usage noted or decreased air movement noted. No signs of trauma. Abdomen: Soft and nontender. Bowel sounds normal in all 4 quadrants. No distention noted. No organomegaly noted. No visible injury noted. Back: Full range of motion noted. Skin: Skin warm and dry. Normal skin color. Normal skin turgor. Raise erythematous and well-demarcated blanching lesions consistent with hives scattered through the patient's face/neck chest arms and legs. No additional rashes/lesions/lacerations noted. Extremities:Extremities exhibit normal range of motion and nontender. Neuro: Oriented X 3. No motor deficit. No sensory deficit. Reflexes normal. Normal steady gait. No focal neuro deficits noted. CN's II-XII intact bilaterally? 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 Facial and lip swelling noted in triage. Lungs CTA, talking in complete sentences, no stridor. Hives noted 50mg PO Benadrly given in triage Pt to go to [facility] right away. IV Solumedrol and Pepcid ordered <SAGE Rubin - Last Filed: 06/10/22 17:57> Reevaluation(s) Reevaluation #1: IMP/Plan: Allergic rxn. Not anaphylaxis. Not sepsis/ infectious etiology. Patient well appearing in no acute distress, breathing easily without throat symptoms. Speaking full sentences, and handling secretions without difficulty. There is no obvious threat to airway. Lungs are CTA in all [place]. No signs of angioedema, stridor, airway compromise, anaphylaxis or anaphylactic shock. Not c/w SSSS/ TEN/ Eryth multiforme/ Arceo Johnsons. Given HPI and PE - Will watch and observe. If patient continues to be symptom free - will d/c with return precautions. Patient understands and agrees with plan <SAGE Lozano - Last Filed: 06/10/22 18:53> Medications Administered Generic Name Dose Route Start Last Admin Trade Name Freq PRN Reason Stop Dose Admin Sodium Chloride 1,000 mls @ 999 mls/hr 06/10/22 18:15 06/10/22 18:38 Ns IVCONT 06/10/22 19:15 999 mls/hr .Q1H1M SIMRAN Administration Discontinued Medications Generic Name Dose Route Start Last Admin Trade Name Freq PRN Reason Stop Dose Admin Diphenhydramine HCl 50 mg 06/10/22 17:44 06/10/22 17:49 Diphenhydramine Hcl 25 Mg Capsule PO 06/10/22 17:45 50 mg ONCE ONE Administration Famotidine 20 mg 06/10/22 17:54 06/10/22 18:11 Famotidine/Pf 20 Mg/2 Ml Vial IVPUSH 06/10/22 17:55 20 mg ONCE ONE Administration Methylprednisolone Sodium Succinate 125 mg 06/10/22 17:54 06/10/22 18:13 Methylprednisolone Sod Succ 125 Mg/2 Ml Vial IVPUSH 06/10/22 17:55 125 mg ONCE ONE Administration <SAGE Rubin - Last Filed: 06/10/22 17:57> Medications Administered Generic Name Dose Route Start Last Admin Trade Name Freq PRN Reason Stop Dose Admin Sodium Chloride 1,000 mls @ 999 mls/hr 06/10/22 18:15 06/10/22 18:38 Ns IVCONT 06/10/22 19:15 999 mls/hr .Q1H1M SIMRAN Administration Discontinued Medications Generic Name Dose Route Start Last Admin Trade Name Freq PRN Reason Stop Dose Admin Diphenhydramine HCl 50 mg 06/10/22 17:44 06/10/22 17:49 Diphenhydramine Hcl 25 Mg Capsule PO 06/10/22 17:45 50 mg ONCE ONE Administration Famotidine 20 mg 06/10/22 17:54 06/10/22 18:11 Famotidine/Pf 20 Mg/2 Ml Vial IVPUSH 06/10/22 17:55 20 mg ONCE ONE Administration Methylprednisolone Sodium Succinate 125 mg 06/10/22 17:54 06/10/22 18:13 Methylprednisolone Sod Succ 125 Mg/2 Ml Vial IVPUSH 06/10/22 17:55 125 mg ONCE ONE Administration <SAGE Lozano - Last Filed: 06/10/22 18:53> MDM - Allergic Reaction Medical Records Attestation: I reviewed the patient's medical records. <SAGE Lozano - Last Filed: 06/10/22 18:53> Discharge Plan Discharge Clinical Impression: Allergic reaction <SAGE Rubin Last Filed: 06/10/22 17:57> Patient Disposition: Home, Self-Care <SAGE Rubin Last Filed: 06/10/22 17:57> Instructions: General Allergic Reaction (ED), Allergy Testing (ED) <SAGE Rubin Last Filed: 06/10/22 17:57> Prescriptions: New cetirizine [Zyrtec] 10 mg tablet 10 mg PO DAILY PRN (Reason: allergy symptoms) Qty: 30 0RF diphenhydramine HCl [Benadryl Allergy] 25 mg tablet 50 mg PO TID PRN (Reason: allergic reaction) Qty: 30 0RF prednisone 20 mg tablet 40 mg PO DAILY 5 Days Qty: 10 0RF famotidine [Pepcid] 20 mg tablet 20 mg PO BID Qty: 30 0RF epinephrine [EpiPen] 0.3 mg/0.3 mL auto-injector 0.3 mg IM Q20M PRN (Reason: anaphylaxis) Qty: 2 0RF Rx Instructions: do not exceed 3 doses per episode No Action irbesartan 150 mg tablet 1 tab PO DAILY Bariatric Multivitamins 45 mg iron- 800 mcg-120 mcg capsule 1 cap PO DAILY@0600 (DME) oxygen-air delivery systems Device See Rx Instructions .ROUTE .MEDSUPPLY Qty: 1 Rx Instructions: As directed, pt is on c-pap not oxygen atorvastatin 20 mg tablet 20 mg PO DAILY acetaminophen [Tylenol Extra Strength] 500 mg tablet 1,000 mg PO Q6H PRN furosemide 40 mg tablet 40 mg PO DAILY hydralazine 50 mg tablet 50 mg PO DAILY Skyrizi 150 mg/mL pen injector 150 mg subcut Q12W calcium citrate-vitamin D3 [Calcium Citrate + D] 315 mg-5 mcg (200 unit) tablet 1 tab PO BID <SAGE Rubin - Last Filed: 06/10/22 17:57> Referrals: Mika Forrester MD [Primary Care Provider] - 2 days <SAGE Rubin - Last Filed: 06/10/22 17:57> Stand Alone Forms: Work/School Release <SAGE Rubin - Last Filed: 06/10/22 17:57> Print Language: Pashto <SAGE Rubin - Last Filed: 06/10/22 17:57>
[2022-06-10] MEDS: Famotidine/PF 20 MG/2 ML VIAL IVPUSH (18:11)
[2022-06-10] MEDS: methylPREDNISolone Sod Succ 125 MG/2 ML VIAL IVPUSH (18:13)
[2022-06-10] MEDS: 0.9 % Sodium Chloride 1,000 ML 999 ML IVCONT (18:38)
== END 2022-06-10 19:58 | disposition home or self-care (01) ==
PROVIDERS: Emergency Provider Emergency Medicine; PCP Internal Medicine
DX: T78.40XA Allergy, unspecified, initial encounter (principal); L50.9 Urticaria, unspecified; X58.XXXA Exposure to other specified factors, initial encounter; I10 Essential (primary) hypertension; E78.5 Hyperlipidemia, unspecified
CPT/HCPCS: 96361; 96374; 96375; 99283; 99284; J2930

== ENCOUNTER → 2022-07-09 10:09 | Outpatient (BNVA) | payer MEDICARE, MEDICAID, OTHER, SELFPAY | PROVIDERS: PCP Internal Medicine; Visit Provider Physician Assistant Surgical | DX: E66.9 Obesity, unspecified (principal); Z98.84 Bariatric surgery status; Z68.34 Body mass index [BMI] 34.0-34.9, adult | CPT/HCPCS: 99212 ==

== ENCOUNTER 2022-08-06 12:22 | Outpatient (REF) | payer MEDICARE, MEDICAID, OTHER, SELFPAY ==
[2022-08-06 12:48] LABS: MANUAL DIFF FLAG NO
[2022-08-06 13:09] LABS: Basophils Percent Auto 0.2 % (0-2); Eosinophils Percent Auto 0.7 % (0-4); Hematocrit 43.5 % (37.0-47.0); Hemoglobin 13.8 g/dl (12.0-16.0); Imm Gran Abs Auto 0.01 X10*3/uL (0.00-0.03); Imm Gran Pct Auto 0.2 % (0.0-0.4); Lymphocytes Absolute Auto 1.4 X10*3/uL (1.2-4.9); Lymphocytes Percent Auto 31.4 % (20-40); Mean Corpuscular HGB Conc 31.7 g/dl (31.0-35.0); Mean Corpuscular Hemoglobin 27.5 pg (27.0-33.0); Mean Corpuscular Volume 86.8 fL (80.0-98.0); Mean Platelet Volume 10.1 fL (9.4-12.3); Monocytes Absolute Auto 0.3 X10*3/uL (0.1-1.2); Monocytes Percent Auto 7.6 % (2-11); Neutrophils Absolute Auto 2.6 x10*3/uL (2.0-8.3); Neutrophils Percent Auto 59.9 % (45-73); Platelet Count 185 X10*3/uL (160-400); Red Blood Count 5.01 X10*6/uL (4.20-5.50); Red Cell Distribution Width 15.4 % (11.0-16.0); White Blood Count 4.3 X10*3/uL (4.8-10.8)
[2022-08-06 13:29] LABS: Estimated Average Glucose 114 mg/dL; Hemoglobin A1c % 5.6 %
[2022-08-06 13:49] LABS: Alanine Aminotransferase 15 U/L (0-31); Albumin Level 4.3 g/dL (3.5-5.0); Alkaline Phosphatase 74 U/L (39-117); Anion Gap 12 (12-20); Aspartate Amino Transferase 20 U/L (5-31); Bilirubin Total 0.5 mg/dL (0.0-1.0); Blood Urea Nitrogen 16 mg/dL (9-16); C Reactive Protein 0.18 mg/dL (< or = 0.50); Calcium 9.4 mg/dL (8.4-10.2); Carbon Dioxide 30 mmol/L (22-29); Chloride 106 mmol/L (96-108); Cholesterol 172 mg/dL; Estimated Glomerular Filt Rate > 60; Glucose Random 82 mg/dL (60-115); HDL Cholesterol 56 mg/dL; Iron 88 mcg/dL (30-160); LDL Cholesterol Calculated 103 mg/dl; Percent Iron Saturation 36 % (15-50); Potassium 4.1 mmol/L (3.3-5.1); Sodium 144 mmol/L (135-145); Total Iron Binding Capacity 244 mcg/dL (228-428); Total Protein 7.3 g/dL (6.5-8.0); Triglycerides 68 mg/dL; Unsaturated Iron Binding 156 ug/dL
[2022-08-06 14:08] LABS: Ferritin 89 ng/mL (10-250); Insulin 10 uU/mL (2-29); TSH reflex Free T4 1.93 uIU/mL (0.32-4.0); Vitamin D 25-OH Total 41.3 ng/mL (>30)
[2022-08-06 14:21] LABS: Folate > 20.0 ng/mL (> or = 4.0); Vitamin B12 697 pg/mL (200-900)
[2022-08-09 15:39] LABS: Calcium (PTHI) 9.4 mg/dL (8.6-10.4); PTHI 90 pg/mL (16-77)
[2022-08-10 22:53] LABS: Zinc 79 mcg/dL (60-130)
[2022-08-11 10:34] LABS: Vitamin A 42 mcg/dL (38-98)
[2022-08-11 15:44] LABS: Vitamin B1 19 nmol/L (8-30)
== END 2022-08-06 12:23 | disposition home or self-care (01) ==
LOC: HO.LAB 12:22
PROVIDERS: PCP Internal Medicine; Visit Provider Physician Assistant Surgical
DX: K91.2 Postsurgical malabsorption, not elsewhere classified (principal); Z98.84 Bariatric surgery status
CPT/HCPCS: 36415; 80053; 80061; 82306; 82607; 82728; 82746; 83036; 83525; 83540; 83970; 84425; 84443; 84590; 84630; 85025; 86140

== ENCOUNTER → 2022-08-25 09:46 | Outpatient (BNVA) | payer MEDICARE, MEDICAID, SELFPAY | PROVIDERS: PCP Internal Medicine; Visit Provider Internal Medicine | DX: G47.33 Obstructive sleep apnea (adult) (pediatric) (principal); J30.9 Allergic rhinitis, unspecified; E66.9 Obesity, unspecified; Z99.89 Dependence on other enabling machines and devices; Z68.35 Body mass index [BMI] 35.0-35.9, adult | CPT/HCPCS: 99212 ==

== ENCOUNTER 2022-10-13 14:55 | Outpatient (REF) | payer MEDICARE, MEDICAID, SELFPAY ==
[2022-10-15 17:09] LABS: TS Negative Control Passed; TS Panel A 0; TS Panel B 0; TS Positive Control Passed; TSpotTB Negative (Negative)
== END 2022-10-13 14:56 | disposition home or self-care (01) ==
LOC: HO.LAB 14:55
PROVIDERS: Absent Provider Internal Medicine; PCP Internal Medicine; Visit Provider Dermatology
DX: L40.0 Psoriasis vulgaris (principal); Z79.899 Other long term (current) drug therapy
CPT/HCPCS: 36415; 86481

== ENCOUNTER 2023-01-10 10:42 | Outpatient (REF) | payer MEDICARE, MEDICAID, SELFPAY ==
--- NOTE | ~2023-01-10 | MM_ITS ---
EXAMINATION: MM SCREENING DIGITAL BREAST TOMOSYNTHESIS, BILATERAL CLINICAL INFORMATION: Screening. Asymptomatic. Remote history reduction mammoplasty, 1993. The lifetime risk of breast cancer based on the Tyrer-Cuzick Model is 6%. COMPARISON: Mammography: 10/29/2021, 09/06/2020, 09/07/2018 TECHNIQUE: Digital breast tomosynthesis is performed in both the craniocaudal and mediolateral oblique views along with computer-aided detection (CAD). Synthesized 2D images are generated from the tomosynthesis. FINDINGS: There are scattered areas of fibroglandular density (ACR BI-RADS breast composition Category b). Parenchymal pattern is similar to prior studies. There is no developing density or architectural abnormality. There is chronic minor scarring and scattered numerous benign round, rim, and dermal calcifications again seen consistent with the prior remote reduction mammoplasty. There are no significant masses, abnormal calcifications, or other abnormalities. The axilla and skin contours are unremarkable. No significant changes. MM/MM tomosynthesis screening BI IMPRESSION: No mammographic evidence of malignancy. ASSESSMENT: BI-RADS 2: Benign RECOMMENDATION: Routine annual mammography screening. This patient's information was entered into a reminder system with a target due date for their next mammogram.
== END 2023-01-10 10:43 | disposition home or self-care (01) ==
LOC: HO.MAMMO 10:42
PROVIDERS: PCP Internal Medicine; Visit Provider Internal Medicine
DX: Z12.31 Encounter for screening mammogram for malignant neoplasm of breast (principal)
CPT/HCPCS: 77063; 77067

== ENCOUNTER → 2023-02-02 13:29 | Outpatient (BNVA) | payer MEDICARE, MEDICAID, SELFPAY | PROVIDERS: PCP Internal Medicine; Visit Provider Counselor Mental Health ==

== ENCOUNTER 2023-04-25 16:51 | Outpatient (REF) | payer MEDICARE, OTHER, MEDICAID, SELFPAY ==
--- NOTE | ~2023-04-25 | XR_ITS ---
EXAMINATION: 1. Left knee. 2. Right knee. CLINICAL INFORMATION: Pain. COMPARISON: Right knee March 27, 2021 TECHNIQUE: 1. Left knee. 4 views 2. Right knee. 4 views. FINDINGS: 1. Left knee. Moderate Tricompartment degenerative joint disease. There is joint narrowing and marginal bone spurs which mostly affecting the medial femoral tibial joint. There is a small suprapatellar joint effusion. No focal bone lesion or bone erosion. No chondrocalcinosis. Corticated osseous density at the medial femoral condyle is chronic. 2. Right knee. There is marked Tricompartment degenerative joint disease. There is joint narrowing marginal bone spurs. This severely affects the lateral femoral tibial joint and patellofemoral joint with moderate involvement of the medial femoral tibial joint. No bone erosion. No chondrocalcinosis. Small suprapatellar joint effusion. Severe degenerative joint disease has progressed since prior study March 27, 2021. XR/XR knee RT 4V IMPRESSION: 1. Right knee. Marked tricompartment degenerative joint disease. 2. Left knee. Moderate tricompartment degenerative joint disease. 3. Small bilateral suprapatellar joint effusion.
--- NOTE | ~2023-04-25 | XR_ITS ---
EXAMINATION: 1. Left knee. 2. Right knee. CLINICAL INFORMATION: Pain. COMPARISON: Right knee March 27, 2021 TECHNIQUE: 1. Left knee. 4 views 2. Right knee. 4 views. FINDINGS: 1. Left knee. Moderate Tricompartment degenerative joint disease. There is joint narrowing and marginal bone spurs which mostly affecting the medial femoral tibial joint. There is a small suprapatellar joint effusion. No focal bone lesion or bone erosion. No chondrocalcinosis. Corticated osseous density at the medial femoral condyle is chronic. 2. Right knee. There is marked Tricompartment degenerative joint disease. There is joint narrowing marginal bone spurs. This severely affects the lateral femoral tibial joint and patellofemoral joint with moderate involvement of the medial femoral tibial joint. No bone erosion. No chondrocalcinosis. Small suprapatellar joint effusion. Severe degenerative joint disease has progressed since prior study March 27, 2021. XR/XR knee LT 4V IMPRESSION: 1. Right knee. Marked tricompartment degenerative joint disease. 2. Left knee. Moderate tricompartment degenerative joint disease. 3. Small bilateral suprapatellar joint effusion.
== END 2023-04-25 16:52 | disposition home or self-care (01) ==
LOC: HO.XRAY 16:51
PROVIDERS: PCP Internal Medicine; Visit Provider Internal Medicine
DX: M25.561 Pain in right knee (principal); M25.562 Pain in left knee
CPT/HCPCS: 73564

== ENCOUNTER 2023-05-06 09:18 | Outpatient (REF) | payer MEDICARE, MEDICAID, SELFPAY | END 2023-05-06 09:19 | disposition home or self-care (01) | LOC: HO.LAB 09:18 | PROVIDERS: PCP Internal Medicine; Visit Provider Internal Medicine | DX: I10 Essential (primary) hypertension (principal); E78.00 Pure hypercholesterolemia, unspecified; G47.33 Obstructive sleep apnea (adult) (pediatric); M54.9 Dorsalgia, unspecified; R60.9 Edema, unspecified; R53.83 Other fatigue; L40.9 Psoriasis, unspecified | CPT/HCPCS: 36415; 80053; 80061; 82306; 84443; 85025 ==

== ENCOUNTER 2023-05-16 15:07 | Outpatient (REF) | payer MEDICARE, OTHER, MEDICAID, SELFPAY ==
--- NOTE | ~2023-05-16 | CT_ITS ---
EXAMINATION: CT MAXILLOFACIAL WITHOUT CONTRAST CLINICAL INFORMATION: Chronic rhinitis, nasal congestion. COMPARISON: None. TECHNIQUE: Multidetector helical imaging was performed in the axial plane with generation of coronal and sagittal reformatted images. This CT examination was performed using dose optimization techniques as appropriate, variously including the following: *Automated exposure control *Adjustment of mA and/or kV according to patient size (this includes techniques or standardized protocols for targeted exams where dose is matched to indication/reason for exam; i.e. extremities or head) *Use of iterative reconstruction technique DLP: 136 mGy-cm. FINDINGS: The frontal sinuses are clear. There is minimal ethmoid mucosal thickening bilaterally. The sphenoid sinuses and sphenoethmoidal recesses are clear. The maxillary sinuses and ethmoidal infundibula are clear. The nasal septum is bowed towards the right. No fluid levels are seen. The ethmoid roofs are symmetric. The lamina papyracea are intact. The carotid impressions are covered with bone. No maxillary periapical disease is seen. Prominent torus palatinus is noted. The mastoid air cells and visualized middle ear cavities are well aerated. The orbits are normal. The TMJs are unremarkable. The imaged portions of the brain demonstrate no acute abnormality. CT/CT sinus wo IV con IMPRESSION: Minimal ethmoid mucosal thickening. Paranasal sinuses are otherwise clear without fluid levels. Rightward bowing of the nasal septum.
== END 2023-05-16 15:08 | disposition home or self-care (01) ==
LOC: HO.CT 15:07
PROVIDERS: PCP Internal Medicine; Visit Provider Internal Medicine
DX: J31.0 Chronic rhinitis (principal); R09.81 Nasal congestion; G47.33 Obstructive sleep apnea (adult) (pediatric)
CPT/HCPCS: 70486

== ENCOUNTER 2023-05-23 13:19 | Outpatient (AMB) | payer MEDICARE, MEDICAID, OTHER, SELFPAY ==
--- NOTE | 2023-05-23 13:37 | A.OFFVIS_ITS ---
Intake Intake Visit Reasons: OV - Bilateral Knee Pain Intake Note: Quinten is a 67 year old female who presents today for a follow up of her bilateral knee pain. She was last seen with Annabelle who offered an injection that the patient deferred. She also recommended that the patient follow up with pain mgmt for her symptoms, she did not. Allergies No Known Allergies [No Known Allergies*] Allergy (Verified 02/02/23 14:38) HPI OV - Bilateral Knee Pain HPI Details Quinten is a 67 year old woman who presents with complaints of bilateral knee pain. She complains of pain with daily activity. She says fell onto her knees ~2 weeks ago while carrying groceries and this caused her knees to start hurting She denies any prior treatment options. She denies having knee pain in the past and says she never knew she had knee OA. She complains of pain in her neck and lower back. She denies any numbness. She c omplains of pain in her bilateral hips as well. She was last seen by SAGE Bellamy in 2020 who recommended injections and she be seen by Pain Management. She declined injections and did not follow with Pain Management. She has a hx of fibromyalgia and psoriasis, and she currently takes Skyrizi. She is scheduled to be seen by her Pigeon Fancier on [facility] Medical History Allergic rhinitis Dysfunction of right rotator cuff Fibromyalgia Hyperlipidemia Hypertension Low vitamin D level Neck arthritis Obesity (BMI 30.0-34.9) ZURI on CPAP Psoriasis Seasonal allergies Spinal stenosis Surgical History History of appendectomy History of cataract surgery History of colonoscopy History of myomectomy History of partial hysterectomy History of repair of hiatal hernia History of sinus surgery Hx of breast reduction, elective Status post laparoscopic sleeve gastrectomy Family History Father Unknown family medical history Mother Alive and well Diabetes mellitus Brother Alive and well Brother Alive and well Sister Alive and well Social History Household Members Other:: lives alone Housing: Apartment Alcohol intake: never Patient Tobacco Use Status: Never used Tobacco service: No Current occupational status: retired 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 [employer] Review of Systems Const All systems reviewed & are unremarkable except as noted in HPI and below Physical Exam Const General: no acute distress, alert and awake Orientation/consciousness: patient oriented x3 HEENT Head: Yes normocephalic and Yes atraumatic Eyes EOM: EOMs intact bilaterally Resp Effort & Inspection: normal respiratory effort and able to speak in complete sentences Cardio Jugular venous distension: no JVD Skin General skin exam: turgor normal Rashes: no rashes Neuro General: patient oriented x3 Extrem Other: Bilateral Knees: Mild global TTP Varus alignment Mild medial compartment tenderness Psych Appearance: grossly normal Affect: normal affect Attitude: cooperative Results Reviewed Results Reviewed: I personally reviewed relevant radiographs. 1. Right knee. Marked tricompartment degenerative joint disease. 2. Left knee. Moderate tricompartment degenerative joint disease. 3. Small bilateral suprapatellar joint effusion. Assessment & Plan Assessment & Plan (1) Osteoarthritis of right knee: Code(s): M17.11 - Unilateral primary osteoarthritis, right knee Plan: This is a 67 year old woman with bilateral knee OA, R>L. She complains of new pain with daily activity, which began after a fall ~2 weeks ago. She denies any prior treatment. I discussed her diagnosis and treatment options. She she has only had pain for ~2 weeks I recommend she remain active as tolerated, she can use ice for pain relief. If her symptoms persist or worsen in the next 6-8 weeks she can follow up to discuss alternative treatment options, such as injections or PT. (2) Osteoarthritis of left knee: Code(s): M17.12 - Unilateral primary osteoarthritis, left knee (3) Fibromyalgia: Code(s): M79.7 - Fibromyalgia (4) Psoriasis: Code(s): L40.9 - Psoriasis, unspecified Plan Scribed for Hemant Koch MD by Conor Alamo, medical practice assistant, on 05/23/23 at 2:20 PM, EST. Coding Level of Care Code Est Pt Level 3 (40912) Diagnoses Osteoarthritis of right knee M17.11 Osteoarthritis of left knee M17.12 Fibromyalgia M79.7 Psoriasis L40.9
== END 2023-05-23 14:34 | disposition home or self-care (01) ==
PROVIDERS: PCP Internal Medicine; Visit Provider Orthopaedic Surgery
DX: M17.0 Bilateral primary osteoarthritis of knee (principal); M79.7 Fibromyalgia; L40.9 Psoriasis, unspecified
CPT/HCPCS: 99213

== ENCOUNTER → 2023-05-23 13:19 | Outpatient (BNVA) | payer MEDICARE, MEDICAID, SELFPAY | PROVIDERS: PCP Internal Medicine; Visit Provider Orthopaedic Surgery | DX: M17.0 Bilateral primary osteoarthritis of knee (principal); M79.7 Fibromyalgia; L40.9 Psoriasis, unspecified | CPT/HCPCS: 99212 ==

== ENCOUNTER 2023-05-26 15:54 | Outpatient (AMB) | payer MEDICARE, OTHER, MEDICAID, SELFPAY ==
--- NOTE | 2023-05-26 16:02 | MHC.OFFVIS ---
Intake Vital Signs 05/26/23 16:03 Height 5 ft 9 in Weight 246 lb 14.684 oz BMI 36.5 BP 140/82 H Blood Pressure Location Rt brachial Position Sitting Pulse 80 Pulse Source Pulse Oximeter Temp 97.5 F Temp Source Skin Pulse Oximetry (%) 97 Intake Visit Reasons: low back pain Intake Note: Pt presents today fr follow up, she was last seen 04/28/22. She was referred to [employer] [facility] [facility] for low back pain, doesn't think she went. Following with Ortho for knees, seen 05/23/23. Reports pain in knees when walking; difficulty sleeping due to pain in back, neck and hips. Survey Research Associate Required: No Accompanied by: Self / Same As Patient Allergies No Known Allergies [No Known Allergies*] Allergy (Verified 05/26/23 16:06) Medication List - Last Reconciled 05/26/23 by Elder Velasquez MD atorvastatin 20 mg PO DAILY cetirizine (Zyrtec) 10 mg PO DAILY PRN clobetasol 0.05% 1 appl topical BID epinephrine (EpiPen) 0.3 mg (0.3 mL) IM Q20M PRN furosemide 40 mg PO DAILY hydralazine 25 mg PO BID irbesartan 1 tab PO DAILY qljonnpguaye-cew-vkew-FA-vit K 45 mg iron- 800 mcg-120 mcg (Bariatric Multivitamins) 1 cap PO DAILY@0600 oxygen-air delivery systems As directed, pt is on c-pap not oxygen risankizumab-rzaa (Skyrizi) 150 mg subcut Q12W HPI HPI Comments History of Present Illness Details 67-year-old female with psoriasis returns for follow-up. States that over the last 6 months she has been having low mid back pain that radiates to her hips and sometimes radiates to her right lower extremity. States that this only happens when he she lies on her back. It improves when she lies on her sides or when sitting down. She has been having difficulty sleeping due to this pain. She is compliant with Skyrizi. Denies any swollen joints Initial history: This is a 66-year-old female with psoriasis diagnosed around 5 years ago, she was on methotrexate initially then switched to Humira which was working well initially then lost its efficacy then switched to Cosentyx which also eventually lost its efficacy, she has been on Skyrizi for about a year and her skin has totally cleared up. She denies being diagnosed with psoriatic arthritis. She has had low back pain for 5+ years. Pain is in her neck and lower back as well as the outside of both hips. Pain is worse at night and she has difficulty falling asleep and has difficulty lying on each of her sides. Pain is worse with activity. She does not think that her back pain was better when she was on Humira. She denies any history of suggestive of uveitis or inflammatory bowel disease. She was evaluated by pain management before and was offered injections but patient is afraid to do them. [facility] Medical History Allergic rhinitis ZURI on CPAP Obesity (BMI 30.0-34.9) Spinal stenosis Hyperlipidemia Psoriasis Seasonal allergies Neck arthritis Dysfunction of right rotator cuff Hypertension Low vitamin D level Fibromyalgia Surgical History History of repair of hiatal hernia Status post laparoscopic sleeve gastrectomy History of cataract surgery History of sinus surgery History of partial hysterectomy History of myomectomy History of colonoscopy Hx of breast reduction, elective History of appendectomy Family History Father Unknown family medical history Mother Alive and well Diabetes mellitus Brother Alive and well Brother Alive and well Sister Alive and well Social History Household Members Other:: lives alone Housing: Apartment Alcohol intake: never Patient Tobacco Use Status: Never used Tobacco service: No Current occupational status: retired 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 [employer] Review of Systems [facility] Reports back pain and Reports radiating pain into limb Physical Exam Vital Signs: Last Vital Signs Temp 97.5 F 05/26/23 16:03 Pulse 80 05/26/23 16:03 BP 140/82 H 05/26/23 16:03 Pulse Ox 97 05/26/23 16:03 BMI result Body Mass Index 36.5 Const General: cooperative, healthy appearing and no acute distress Nutritional Appearance: obese Orientation/consciousness: patient oriented x3 Limitations: no limitations HEENT Head: Yes normocephalic and Yes atraumatic Resp Effort & Inspection: normal respiratory effort and able to speak in complete sentences Neuro General: patient oriented x3 Extrem Other: Minimal osteoarthritic changes of her hands with no synovitis Negative Remington's test bilaterally Right lumbar spinal and paraspinal area tenderness Positive straight leg raise test on the right Assessment & Plan Assessment & Plan (1) Low back pain, unspecified: Code(s): M54.50 - Low back pain, unspecified Qualifiers: Chronicity: chronic Back pain laterality: midline Sciatica presence: with sciatica Sciatica laterality: sciatica of right side Qualified Code(s): M54.41 - Lumbago with sciatica, right side; G89.29 - Other chronic pain Plan: 67-year-old female presents with chronic low back pain for years, getting worse over the last 6 months. Worse when lying on her back and radiating to her right lower extremity. Will refer patient to pain management for further evaluation (2) Psoriasis: Code(s): L40.9 - Psoriasis, unspecified Plan: Per patient diagnosed around 6 years ago, she was on methotrexate, she was also on Humira and Cosentyx which both lost their efficacy. She has been on Skyrizi for about 1 year with complete resolution of her psoriasis. I do not see any signs of active psoriatic arthritis on exam. Continue to follow-up with dermatology Follow-up with me as needed Plan I spent 18 minutes reviewing patient's chart, evaluating patient, counseling patient and documenting in the chart Orders: Referrals Pain Management Referral M54.16 - Radiculopathy, lumbar region Coding Level of Care Code Est Pt Level 3 (21692) Diagnoses Chronic midline low back pain with right-sided sciatica M54.41; G89.29 Chronicity: chronic Back pain laterality: midline Sciatica presence: with sciatica Sciatica laterality: sciatica of right side Psoriasis L40.9
[2023-05-26 16:03] VITALS: BP 140/82; PULSE 80; TEMP 36.4; O2SAT 97; BMI 36.5
== END 2023-05-26 16:31 | disposition home or self-care (01) ==
PROVIDERS: PCP Internal Medicine; Visit Provider Student in an Organized Health Care Education/Training Program
DX: M54.41 Lumbago with sciatica, right side (principal); G89.29 Other chronic pain; L40.9 Psoriasis, unspecified
CPT/HCPCS: 99213

== ENCOUNTER → 2023-05-26 15:54 | Outpatient (BNVA) | payer MEDICARE, OTHER, MEDICAID, SELFPAY | PROVIDERS: PCP Internal Medicine; Visit Provider Student in an Organized Health Care Education/Training Program | DX: M54.41 Lumbago with sciatica, right side (principal); L40.9 Psoriasis, unspecified; G89.29 Other chronic pain | CPT/HCPCS: 99212 ==

== ENCOUNTER 2023-06-30 15:20 | Outpatient (REF) | payer MEDICARE, OTHER, MEDICAID, SELFPAY ==
[2023-06-30 16:34] LABS: C Reactive Protein 0.18 mg/dL (< or = 0.50)
[2023-06-30 16:50] LABS: Erythrocyte Sedimentation Rate 9 MM/HR (0-20)
[2023-06-30 17:10] LABS: Folate 14.9 ng/mL (> or = 4.0); Vitamin B12 880 pg/mL (200-900)
== END 2023-06-30 15:21 | disposition home or self-care (01) ==
LOC: HO.LAB 15:20
PROVIDERS: PCP Internal Medicine; Visit Provider Internal Medicine
DX: I10 Essential (primary) hypertension (principal); G47.33 Obstructive sleep apnea (adult) (pediatric); M54.9 Dorsalgia, unspecified; L40.9 Psoriasis, unspecified
CPT/HCPCS: 36415; 82550; 82607; 82746; 85652; 86140

== ENCOUNTER 2023-07-06 13:38 | Outpatient (AMB) | payer MEDICARE, MEDICAID, OTHER, SELFPAY ==
--- NOTE | 2023-07-06 13:43 | MHC.OFFVIS ---
Intake Vital Signs 07/06/23 13:45 Height 5 ft 9 in Weight 243 lb BMI 35.9 Blood Pressure Location Lt brachial Position Sitting Respiration 12 Pulse 72 Pulse Source Pulse Oximeter Pulse Oximetry (%) 97 Oxygen Delivery Method Room Air Intake Visit Reasons: lumbar radiculopathy/confirmed Intake Note: Pt's BP nelevated - she stated she forgot to take her pills this AM Allergies No Known Allergies [No Known Allergies*] Allergy (Verified 07/06/23 13:47) Medication List - Last Reconciled 07/06/23 by Naima Navarrete LPN atorvastatin 20 mg PO DAILY cetirizine (Zyrtec) 10 mg PO DAILY PRN clobetasol 0.05% 1 appl topical BID epinephrine (EpiPen) 0.3 mg (0.3 mL) IM Q20M PRN furosemide 40 mg PO DAILY hydralazine 25 mg PO BID irbesartan 1 tab PO DAILY fyompcepelbg-hfl-kcrc-FA-vit K 45 mg iron- 800 mcg-120 mcg (Bariatric Multivitamins) 1 cap PO DAILY@0600 oxygen-air delivery systems As directed, pt is on c-pap not oxygen risankizumab-rzaa (Skyrizi) 150 mg subcut Q12W HPI HPI Comments History of Present Illness Details Ms. Bowen is back in my office after 3 years of absence. Prolonged and difficult conversation and suit. She was asking multiple questions about the procedures I was offering to her 3 years ago. I still believe that most of the pain of this patient is related to spondylosis and disc degeneration. Last time I offered her diagnostic medial branch block however patient was very reluctant to go for this procedure. We discussed today possibility of treating her coccydynia with ganglion impar injection. We discussed today treating her cervical pain with different kind of injections. She seem to have needle phobia and very reluctant to go for the procedures. In this situation I only can recommend her to go to a primary care physician and obtain oral medications to help her pain. We agreed that she will think about the offer of the medial branch block L3-L4 does ramus L5 bilateral in the order to diagnose her pain. We agreed that she will give us a call if she decides to go for the injection. She told me that she went for the MRI in [facility] however in our record system I did not find any new MRI images. We will ask patient in the future whether not she had an MRI here. Prior: very pleasant 64 years old female who presents in my office with complains on pain all over her body. Specifically she reports severe pain in the projection of her lumbar spine as well as pain in the lateral hips. She reports pain in the projection of cervical spine lowest portion of the cervical spine. She also reports pain in the coccygeal area. She reports that all this problem started many years ago she was previously diagnosed with fibromyalgia. She reports that she has pain 5/6 out of 10. she reports her pain is increase the in positions of pain down as well as standing up as well as sitting. She reports that the most pain she experiences in lumbar spine with flat position in bed. She reports that she had physical therapy and TENS unit in [facility] she reports minimal to moderate help with physical therapy and TENS unit. She reports some nerve block was performed for her but she does not know what kind of nerves were blocked and whether not it was image guided procedure she does not report presence of the any image guided instrument in the room. She had x-ray done and [facility] and she had MRI done at [facility]. We will be looking into the [facility] pain management records to obtain the results of that MRi [facility] Medical History Allergic rhinitis ZURI on CPAP Obesity (BMI 30.0-34.9) Spinal stenosis Hyperlipidemia Psoriasis Seasonal allergies Neck arthritis Dysfunction of right rotator cuff Hypertension Low vitamin D level Fibromyalgia Surgical History History of repair of hiatal hernia Status post laparoscopic sleeve gastrectomy History of cataract surgery History of sinus surgery History of partial hysterectomy History of myomectomy History of colonoscopy Hx of breast reduction, elective History of appendectomy Family History Father Unknown family medical history Mother Alive and well Diabetes mellitus Brother Alive and well Brother Alive and well Sister Alive and well Social History Household Members Other:: lives alone Housing: Apartment Alcohol intake: never Patient Tobacco Use Status: Never used Tobacco service: No Current occupational status: retired 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 [employer] Review of Systems Const Reports body aches, Denies chills, Denies daytime sleepiness, Reports difficulty sleeping, Denies excessive sweating, Reports fatigue, Denies fever(s) and Reports weight loss Eyes Reports as per HPI, Denies decreased night vision and Denies diplopia ENT Denies no additional complaints and Reports Normal hearing present Card Denies chest pain, Denies chest pain at rest, Denies chest pain with activity, Denies syncope and Denies rapid heart rate Resp Denies no additional complaints, Denies change in phlegm color, Denies chest congestion, Denies cough, Denies hemoptysis, Denies pain on inspiration and Denies pain with cough GI Denies bloating, Denies hematochezia, Denies change in bowel habits, Denies tenesmus and Denies change in stool character Musc Denies no additional complaints, Denies as per HPI, Denies abnormal gait and Denies back pain Neuro Reports Normal hearing present, Denies Neuro-related abnormal movements, Denies abnormal gait, Denies burning sensations and Denies syncope Psych Denies no additional complaints, Denies visual hallucinations, Denies hallucinations, Denies tactile hallucinations and Denies homicidal ideation Endo Denies excessive sweating and Reports fatigue Physical Exam Vital Signs: Last Vital Signs Pulse 72 07/06/23 13:45 Resp 12 07/06/23 13:45 Pulse Ox 97 07/06/23 13:45 Oxygen Delivery Method Room Air 07/06/23 13:45 BMI result Body Mass Index 35.9 Const General: cooperative, healthy appearing, comfortable, no acute distress, well developed, alert and Physically active Nutritional Appearance: well nourished Orientation/consciousness: patient oriented x3 Limitations: no limitations HEENT Head: Yes normal to inspection Eyes General: appearance normal, both eyes and all related structures Pupils: Equal, round and reactive pupils present Neck Neck: Yes tender ( The projection of the cervical spine) Chest Chest palpation & inspection: normal inspection of the chest Resp Effort & Inspection: normal respiratory effort, able to speak in complete sentences, normal respiratory pattern, no audible wheezes, no cough, respiratory effort not decreased and symmetric chest movement Cardio Jugular venous distension: no JVD GI Inspection: Yes normal to inspection Back/Spine/Pelvis Other: she is able to flex herself forward only about to the 50?. She reports severe pain on this maneuver flexing backwards aggravate her pain very small little. Remington test is negative bilaterally. Palpation of bilateral iliac crests is tender however she reports that this tenderness is coming from the sacral bone. Spinal region and paraspinal region in the projection of the lumbar spine is most tender on palpation in lumbar area. Straight leg rising is negative for pain increase. Remington test is negative, SLR is negative. 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 I still offered her would I offered her 3 years ago. Diagnostic medial branch block L3-L4 dorsal ramus L5 bilateral. We may do it under minimal sedation in the operating room if she is so anxious to go for the procedure. Her primary care physician offered her on gabapentin but she was reluctant to accept this medication because of the risk of the suicide. She reported to me today that she had an MRI in [facility] however I did not find any MRI images or reports in our system. We need to request her to bring us MRI. We agreed that if she would like to go for the diagnostic injection as above she will give us a call and schedule the procedure. Patient Instructions: I here by testify that I spent 30 minutes in conversation with this patient as well as planning her care, evaluating electronic medical records and organizing her note. Coding Level of Care Code Est Pt Level 4 (15979) Diagnoses Psoriasis L40.9 Fibromyalgia M79.7 Osteoarthritis, generalized M15.9 Spondylosis of lumbar region without myelopathy or radiculopathy M47.816
[2023-07-06 13:45] VITALS: PULSE 72; RESP 12; O2SAT 97; BMI 35.9
== END 2023-07-06 14:25 | disposition home or self-care (01) ==
PROVIDERS: PCP Internal Medicine; Visit Provider Anesthesiology
DX: L40.9 Psoriasis, unspecified (principal); M79.7 Fibromyalgia; M15.9 Polyosteoarthritis, unspecified; M47.816 Spondylosis without myelopathy or radiculopathy, lumbar region
CPT/HCPCS: 99214

== ENCOUNTER → 2023-07-06 13:38 | Outpatient (BNVA) | payer MEDICARE, OTHER, SELFPAY | PROVIDERS: PCP Internal Medicine; Visit Provider Anesthesiology | DX: M47.816 Spondylosis without myelopathy or radiculopathy, lumbar region (principal); L40.9 Psoriasis, unspecified; M79.7 Fibromyalgia; M15.9 Polyosteoarthritis, unspecified | CPT/HCPCS: 99212 ==

== ENCOUNTER 2023-08-29 13:46 | Outpatient (REF) | payer MEDICARE, MEDICAID, OTHER, SELFPAY ==
[2023-09-01 18:14] LABS: TS Negative Control Passed; TS Panel A 0; TS Panel B 0; TS Positive Control Passed; TSpotTB Negative (Negative)
== END 2023-08-29 13:47 | disposition home or self-care (01) ==
LOC: HO.LAB 13:46
PROVIDERS: Visit Provider Dermatology
DX: L40.0 Psoriasis vulgaris (principal); L82.1 Other seborrheic keratosis
CPT/HCPCS: 36415; 86481

== ENCOUNTER 2023-11-29 09:17 | Outpatient (AMB) | payer MEDICARE, OTHER, SELFPAY ==
[2023-11-29 09:30] VITALS: BP 130/90; PULSE 63; O2SAT 93; BMI 36.0
--- NOTE | 2023-11-29 09:30 | A.OFFVIS_ITS ---
Vital Signs 11/29/23 09:30 Height 5 ft 9 in Weight 244 lb BMI 36.0 BP 130/90 H Blood Pressure Location Lt brachial Position Sitting Pulse 63 Pulse Source Pulse Oximeter Pulse Oximetry (%) 93 Oxygen Delivery Method Room Air Intake Visit Reasons: edison Intake Note: pt is here for follow up and states she is having a problem with her nasal pilllows. Para Educator Required: No Allergies No Known Allergies [No Known Allergies*] Allergy (Verified 11/29/23 09:58) Medication List - Last Reconciled 11/29/23 by Annel Cam MD atorvastatin 20 mg PO DAILY cetirizine (Zyrtec) 10 mg PO DAILY PRN clobetasol 0.05% 1 appl topical BID epinephrine (EpiPen) 0.3 mg (0.3 mL) IM Q20M PRN furosemide 40 mg PO DAILY hydralazine 25 mg PO BID irbesartan 1 tab PO DAILY veucaofkrcwt-ect-cazt-FA-vit K 45 mg iron- 800 mcg-120 mcg (Bariatric Multivitamins) 1 cap PO DAILY@0600 oxygen-air delivery systems As directed, pt is on c-pap not oxygen risankizumab-rzaa (Skyrizi) 150 mg subcut Q12W Do you need a note to return to daycare/school/sports/work: No HPI HPI edison: Details: 68 years old very pleasant female with gross obesity, past history of gastric sleeve, but now the weight has been at a stent still. She does have obstructive sleep apnea and has been struggling to improve the compliance over the past few years. She has been using it, more than 70% of the time. Currently using nasal pillows. 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 At the same time she is claustrophobic and can not use the fullface mask. At present she is complaining that she gets too much pressure-like feeling from nasal pillows. Would like to use something flat like nasal air. She has also not able to make appointment with an ENT doctor, to discuss about possible surgery. She is being treated for hypertension, hyperlipidemia, psoriasis ( on Skyrizi ) 150 mg subQ q.12 weeks. [facility] Medical History Allergic rhinitis EDISON on CPAP Obesity (BMI 30.0-34.9) Spinal stenosis Hyperlipidemia Psoriasis Seasonal allergies Neck arthritis Dysfunction of right rotator cuff Hypertension Low vitamin D level Fibromyalgia Surgical History History of repair of hiatal hernia Status post laparoscopic sleeve gastrectomy History of cataract surgery History of sinus surgery History of partial hysterectomy History of myomectomy History of colonoscopy Hx of breast reduction, elective History of appendectomy Family History Father Unknown family medical history Mother Alive and well Diabetes mellitus Brother Alive and well Brother Alive and well Sister Alive and well Social History Household Members Other:: lives alone Housing: Apartment Alcohol intake: never Patient Tobacco Use Status: Never used Tobacco service: No Current occupational status: retired 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 [employer] Review of Systems Const All systems reviewed & are unremarkable except as noted in HPI and below Denies snoring Eyes Reports no additional complaints ENT Reports nasal congestion (FEELS THAT HER NOSE IS CONGESTED DURING THE NIGHT) Card Denies chest pain, Denies irregular heart rhythm and Denies leg edema Resp Reports cough, Denies snoring and Denies wheezing GI Reports no additional complaints Reports no additional complaints Musc Reports back pain (Mild chronic) and Reports myalgias (Mild chronic) Skin/Breast Reports system reviewed and no additional complaints, except as documented Neuro Reports no additional complaints Psych Reports no additional complaints Aller/Immun Denies wheezing Physical Exam Vital Signs: Last Vital Signs Pulse 63 11/29/23 09:30 BP 130/90 H 11/29/23 09:30 Pulse Ox 93 11/29/23 09:30 Oxygen Delivery Method Room Air 11/29/23 09:30 BMI result Body Mass Index 36.0 Const General: comfortable, no acute distress, alert and awake Orientation/consciousness: patient oriented x3 HEENT Head: Yes normal to inspection General nose exam: No nasal polyps present, No nasal discharge present and Abnormal mucous membranes and turbinates present (SHE HAS MARKED HYPERTROPHY OF THE NASAL TURBINATES WITH MILD CONGESTION) Face and sinus: Yes sinuses nontender Mouth: oropharynx normal Throat: No posterior oropharynx normal (Moderately crowded, Mallampati class 3) Eyes General: appearance normal, both eyes and all related structures Neck Neck: Yes normal visual inspection, Yes no lymphadenopathy, Yes trachea midline and Yes no JVD Thyroid: Thyroid normal Chest Chest palpation & inspection: normal inspection of the chest, normal palpation of entire chest wall and no tenderness Resp Effort & Inspection: normal respiratory effort Auscultation: clear to auscultation bilaterally, no rales and no wheezes Cardio Palpation: normal PMI Rate: regular rate Rhythm: regular rhythm Heart sounds: no gallops and no murmurs GI Palpation (GI): Soft to palpation, nontender, No hepatosplenomegaly present and no masses Auscultation: normal bowel sounds Back/Spine/Pelvis Thoracic/Lumbar Spine: thoracic and lumbar spine normal to inspection Skin General skin exam: no rashes or lesions noted Neuro General: patient oriented x3 and no focal motor deficits Cranial nerves: Yes CN's II-XII intact bilaterally Extrem General: Yes normal to inspection, Yes no clubbing, cyanosis or edema and Yes no calf tenderness Psych Appearance: grossly normal and well kempt Speech and movement: Normal speech and movement present Results Reviewed Results Reviewed: COMPLIANCE REPORT FOR THE LAST 30 NIGHTS IS REVIEWED. SHE HAS USED. 26/30 NIGHTS 87% AVERAGE USE IT PER NIGHT 4 HOURS 10 MINUTES. .THERE IS NO SIGNIFICANT AIR LEAK RESIDUAL AHI 2.1 Assessment & Plan Assessment & Plan (1) Obesity (BMI 30.0-34.9): Comment: REMAINS MODERATELY OBESE, ENCOURAGED TO FOLLOW-UP WITH WEIGHT MANAGEMENT PROGRAM. SHE NEEDS TO RESTRICT CALORIES INTAKE MUCH POSSIBLE, IF NOT WEIGHT MANAGEMENT PROGRAM AT LEAST SHE SHOULD SEE A DIETITIAN. ENCOURAGED TO START WALKING DAILY, MAY GO TO THE MALL AND WALK INDOORS. Code(s): E66.9 - Obesity, unspecified Category: Medical Plan: SHE IS GOING TO TRY TO RESTRICT CALORIES INTAKE, MUCH POSSIBLE AND ENCOURAGED TO WALK 1 OR 2 MILES EVERY DAY. (2) EDISON on CPAP: Comment: COMPLIANCE IS BETTER BUT STILL NOT OPTIMAL . STATES THAT SHE IS HAVING PROBLEM WITH NASAL PILLOWS, HER NASAL CAVITIES ARE ALMOST BLOCKED. SHE IS CLAUSTROPHOBIC AND CAN NOT USE FULLFACE MASK. SHE WANTS TO TRY A FLAT INTERFACE LIKE NASAL AIR. SHE HAS DIFFICULTY IN SLEEPING IN THE BED BECAUSE OF HER CHRONIC BACK PAIN. SOMETIMES GOES TO SLEEP IN THE RECLINER AND FORGETS TO PUT ON THE CPAP Code(s): G47.33 - Obstructive sleep apnea (adult) (pediatric); Z99.89 - Dependence on other enabling machines and devices Category: Medical Plan: WILL ORDER NASAL AIR FOR THE INTERFACE. ADVISE THAT SHE SHOULD LEARNED TO PUT THE CPAP ON WHEN SHE SLEEPS IN THE RECLINER. SHE MUST SEE AN ENT SPECIALIST FOR ONGOING TREATMENT OF HER NASAL ALLERGY AND TURBINATES (3) Allergic rhinitis: Comment: SHE HAS CHRONIC LOW-GRADE NASAL ALLERGY WITH HYPERTROPHIED NASAL TURBINATES. SHE HAS NOT BEEN ABLE TO MAKE APPOINTMENT WITH HER ENT SPECIALIST. Code(s): J30.9 - Allergic rhinitis, unspecified Category: Medical Plan: I GAVE HER DR. ERIC RAMIREZS NAME AND TOLD HER TO STOP BY AND MAKE APPOINTMENT. Coding Level of Care Code Est Pt Level 4 (72869) Diagnoses Obesity (BMI 30.0-34.9) E66.9 EDISON on CPAP G47.33; Z99.89 Allergic rhinitis J30.9
== END 2023-11-29 09:57 | disposition home or self-care (01) ==
PROVIDERS: PCP Internal Medicine; Visit Provider Internal Medicine
DX: E66.9 Obesity, unspecified (principal); G47.33 Obstructive sleep apnea (adult) (pediatric); Z99.89 Dependence on other enabling machines and devices; J30.9 Allergic rhinitis, unspecified
CPT/HCPCS: 99214

== ENCOUNTER → 2023-11-29 09:17 | Outpatient (BNVA) | payer MEDICARE, OTHER, MEDICAID, SELFPAY | PROVIDERS: PCP Internal Medicine; Visit Provider Internal Medicine | DX: G47.33 Obstructive sleep apnea (adult) (pediatric) (principal); J30.9 Allergic rhinitis, unspecified; E66.9 Obesity, unspecified; Z99.89 Dependence on other enabling machines and devices; Z68.36 Body mass index [BMI] 36.0-36.9, adult | CPT/HCPCS: 99212 ==

== ENCOUNTER 2024-01-12 13:53 | Outpatient (REF) | payer MEDICARE, OTHER, MEDICAID, SELFPAY ==
--- NOTE | ~2024-01-12 | MM_ITS ---
EXAMINATION: MM SCREENING DIGITAL BREAST TOMOSYNTHESIS, BILATERAL CLINICAL INFORMATION: Screening. Asymptomatic. The patient is status post bilateral breast reduction. COMPARISON: Mammography: This study is compared with prior exams dating back to 2020. TECHNIQUE: Digital breast tomosynthesis is performed in both the craniocaudal and mediolateral oblique views along with computer-aided detection (CAD). Synthesized 2D images are generated from the tomosynthesis. FINDINGS: There are scattered areas of fibroglandular density (ACR BI-RADS breast composition Category b). There are no significant masses, abnormal calcifications, or other abnormalities. Post reduction changes are present in each breast. MM/MM tomosynthesis screening BI IMPRESSION: No mammographic evidence of malignancy. ASSESSMENT: BI-RADS BI-RADS 2 - Benign Findings RECOMMENDATION: Routine annual mammography screening. 1 year F/U This examination should not preclude the clinical evaluation of a suspicious palpable abnormality. This patient's information was entered into a reminder system with a target due date for their next mammogram.
== END 2024-01-12 13:54 | disposition home or self-care (01) ==
LOC: HO.MAMMO 13:53
PROVIDERS: PCP Internal Medicine; Visit Provider Internal Medicine
DX: Z12.31 Encounter for screening mammogram for malignant neoplasm of breast (principal)
CPT/HCPCS: 77063; 77067

== ENCOUNTER → 2024-01-12 14:00 | Outpatient (BNV) | payer MEDICARE, OTHER, MEDICAID, SELFPAY | PROVIDERS: PCP Internal Medicine; Visit Provider Radiology Diagnostic Radiology | DX: Z12.31 Encounter for screening mammogram for malignant neoplasm of breast (principal) | CPT/HCPCS: 77063; 77067 ==

== ENCOUNTER 2024-01-24 13:49 | Outpatient (AMB) | payer MEDICARE, MEDICAID, OTHER, SELFPAY ==
[2024-01-24 14:05] VITALS: BP 120/80; PULSE 66; O2SAT 96; BMI 36.8
--- NOTE | 2024-01-24 14:05 | MHC.OFFVIS ---
Vital Signs 01/24/24 14:05 Height 5 ft 9 in Weight 249 lb 1.957 oz BMI 36.8 BP 120/80 Blood Pressure Location Lt brachial Position Sitting Pulse 66 Pulse Source Pulse Oximeter Pulse Oximetry (%) 96 Oxygen Delivery Method Room Air Intake Visit Reasons: edison Intake Note: pt is here for follow up of EDISON, not doing too well with cpap, still struggling with cpap, new mask didn't really help much. 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: No Allergies No Known Allergies [No Known Allergies*] Allergy (Verified 01/24/24 14:32) Medication List - Last Reconciled 01/24/24 by Annel Cam MD atorvastatin 20 mg PO DAILY cetirizine (Zyrtec) 10 mg PO DAILY PRN clobetasol 0.05% 1 appl topical BID epinephrine (EpiPen) 0.3 mg (0.3 mL) IM Q20M PRN furosemide 40 mg PO DAILY hydralazine 25 mg PO BID irbesartan 1 tab PO DAILY [id number]-vit K 45 mg iron- 800 mcg-120 mcg (Bariatric Multivitamins) 1 cap PO DAILY@0600 oxygen-air delivery systems As directed, pt is on c-pap not oxygen risankizumab-rzaa (Skyrizi) 150 mg subcut Q12W Do you need a note to return to daycare/school/sports/work: No HPI HPI edison: Details: BRENDON , 68 YEARS OLD FEMALE GROSSLY OBESE, WHO HAS HAD LAP BAND SURGERY IN THE PAST, COMES FOR FOLLOW-UP FOR HER SLEEP APNEA. SHE USES CPAP ALMOST EVERY NIGHT BUT ONLY FOR A FEW HOURS. THE INTERFACE WAS CHANGED FROM NASAL PILLOWS TO NASAL AIR, BUT SHE IS HAVING PROBLEM WITH THIS ALSO. SHE COMPLAINS THAT THE NASAL AIR CANNULA SLIDES TO THE SIDES AT NIGHT. SHE HAS CHRONIC HYPERTROPHY OF THE NASAL TURBINATES AND THE AIR FLOW SEEMS TO BE RESTRICTED. SHE WAKES UP TIRED AND IF THAT NOT HAVE ENOUGH SLEEP. THEN SHE REMAINS TIRED AND SLEEPY DURING THE DAYTIME. SHE HAS FIBROMYALGIA WELL DEGENERATIVE ARTHRITIS OF THE SPINE, AND DUE TO BACK PAIN SHE DOES NOT GET GOOD SLEEP AT NIGHT. FORMERLY [facility], [facility] Medical History Nasal turbinate hypertrophy Allergic rhinitis EDISON on CPAP Obesity (BMI 30.0-34.9) Spinal stenosis Hyperlipidemia Psoriasis Seasonal allergies Neck arthritis Dysfunction of right rotator cuff Hypertension Low vitamin D level Fibromyalgia Surgical History History of repair of hiatal hernia Status post laparoscopic sleeve gastrectomy History of cataract surgery History of sinus surgery History of partial hysterectomy History of myomectomy History of colonoscopy Hx of breast reduction, elective History of appendectomy Family History Father Unknown family medical history Mother Alive and well Diabetes mellitus Brother Alive and well Brother Alive and well Sister Alive and well Social History Household Members Other:: lives alone Housing: Apartment Alcohol intake: never Patient Tobacco Use Status: Never used Tobacco service: No Current occupational status: retired 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 [employer] Review of Systems Const All systems reviewed & are unremarkable except as noted in HPI and below Denies snoring Eyes Reports no additional complaints ENT Reports nasal congestion (FEELS THAT HER NOSE IS CONGESTED DURING THE NIGHT) Card Denies chest pain, Denies irregular heart rhythm and Denies leg edema Resp Reports cough, Denies snoring and Denies wheezing GI Reports no additional complaints Reports no additional complaints Musc Reports back pain (Mild chronic) and Reports myalgias (Mild chronic) Skin/Breast Reports system reviewed and no additional complaints, except as documented Neuro Reports no additional complaints Psych Reports no additional complaints Aller/Immun Denies wheezing Physical Exam Vital Signs: Last Vital Signs Pulse 66 01/24/24 14:05 BP 120/80 01/24/24 14:05 Pulse Ox 96 01/24/24 14:05 Oxygen Delivery Method Room Air 01/24/24 14:05 BMI result Body Mass Index 36.8 Const General: comfortable, no acute distress, alert and awake Orientation/consciousness: patient oriented x3 HEENT Head: Yes normal to inspection General nose exam: No nasal polyps present, No nasal discharge present and Abnormal mucous membranes and turbinates present (SHE HAS MARKED HYPERTROPHY OF THE NASAL TURBINATES WITH MILD CONGESTION) Face and sinus: Yes sinuses nontender Mouth: oropharynx normal Throat: No posterior oropharynx normal (Moderately crowded, Mallampati class 3) Eyes General: appearance normal, both eyes and all related structures Neck Neck: Yes normal visual inspection, Yes no lymphadenopathy, Yes trachea midline and Yes no JVD Thyroid: Thyroid normal Chest Chest palpation & inspection: normal inspection of the chest, normal palpation of entire chest wall and no tenderness Resp Effort & Inspection: normal respiratory effort Auscultation: clear to auscultation bilaterally, no rales and no wheezes Cardio Palpation: normal PMI Rate: regular rate Rhythm: regular rhythm Heart sounds: no gallops and no murmurs GI Palpation (GI): Soft to palpation, nontender, No hepatosplenomegaly present and no masses Auscultation: normal bowel sounds Back/Spine/Pelvis Thoracic/Lumbar Spine: thoracic and lumbar spine normal to inspection Skin General skin exam: no rashes or lesions noted Neuro General: patient oriented x3 and no focal motor deficits Cranial nerves: Yes CN's II-XII intact bilaterally Extrem General: Yes normal to inspection, Yes no clubbing, cyanosis or edema and Yes no calf tenderness Psych Appearance: grossly normal and well kempt Speech and movement: Normal speech and movement present Results Reviewed Results Reviewed: THE COMPLIANCE REPORT FOR THE LAST 30 NIGHTS IS REVIEWED SHE USED THE CPAP 23/30 NIGHTS, 77%. AVERAGE USAGE PER NIGHT IS 3 HOURS 50 MINUTES BUT ON SOME OF THE NIGHTS SHE USES EVEN LESS THAN 3 HOURS PER NIGHT. RESIDUAL AHI 2.3 Assessment & Plan Assessment & Plan (1) Obesity (BMI 30.0-34.9): Comment: REMAINS MODERATELY OBESE, ENCOURAGED TO FOLLOW-UP WITH WEIGHT MANAGEMENT PROGRAM. SHE NEEDS TO RESTRICT CALORIES INTAKE MUCH POSSIBLE, Code(s): E66.9 - Obesity, unspecified Category: Medical Plan: DISCUSSED ABOUT WEIGHT REDUCTION PROGRAM. SHE IS NOT ABLE TO JOIN THE WEIGHT MANAGEMENT PROGRAM, AFTER SHE HAS HAD LAPAROSCOPIC SLEEVE GASTRECTOMY IN 2019. SHE NEEDS MORE EXERCISE AND ACTIVITY DURING THE DAYTIME. ENCOURAGED TO START WALKING DAILY, MAY GO TO THE MALL AND WALK INDOORS. (2) EDISON on CPAP: Comment: COMPLIANCE IS STILL NOT OPTIMAL . NASAL AIR ALSO NOT SUITING HER WELL, I WILL ORDER THE NASAL MASK, TO SEE IF SHE CAN USE IT MORE COMFORTABLY. SHE IS CLAUSTROPHOBIC AND CAN NOT USE FULLFACE MASK. Code(s): G47.33 - Obstructive sleep apnea (adult) (pediatric); Z99.89 - Dependence on other enabling machines and devices Category: Medical Plan: WILL ORDER NASAL MASK. TALKED TO HER ABOUT USING THE CPAP AT LEAST FOR 4 HOURS EVERY NIGHT, SHE CAN COMPENSATE FOR HER POOR SLEEP AT NIGHT, BY TAKING NAPS MAY BE IN A RECLINER DURING THE DAYTIME AND USE CPAP. (3) Allergic rhinitis: Comment: SHE HAS CHRONIC LOW-GRADE NASAL ALLERGY WITH HYPERTROPHIED NASAL TURBINATES. SHE HAS NOT BEEN ABLE TO MAKE APPOINTMENT WITH HER ENT SPECIALIST. Code(s): J30.9 - Allergic rhinitis, unspecified Category: Medical Plan: ADVISED TO USE FLONASE 1 SPRAY IN EACH NOSTRIL DAILY AT NIGHT ALSO ADVISED TO USE ZYRTEC 10 MG ONCE A DAY AND PROBABLY TAKING IT AT NIGHT WOULD BE BETTER FOR HER. Coding Level of Care Code Est Pt Level 3 (19020) Diagnoses Obesity (BMI 30.0-34.9) E66.9 EDISON on CPAP G47.33; Z99.89 Allergic rhinitis J30.9
== END 2024-01-24 14:34 | disposition home or self-care (01) ==
PROVIDERS: PCP Internal Medicine; Visit Provider Internal Medicine
DX: E66.9 Obesity, unspecified (principal); G47.33 Obstructive sleep apnea (adult) (pediatric); Z99.89 Dependence on other enabling machines and devices; J30.9 Allergic rhinitis, unspecified
CPT/HCPCS: 99213

== ENCOUNTER → 2024-01-24 13:49 | Outpatient (BNVA) | payer MEDICARE, OTHER, MEDICAID, SELFPAY | PROVIDERS: PCP Internal Medicine; Visit Provider Internal Medicine | DX: G47.33 Obstructive sleep apnea (adult) (pediatric) (principal); J30.9 Allergic rhinitis, unspecified; E66.9 Obesity, unspecified; Z68.36 Body mass index [BMI] 36.0-36.9, adult | CPT/HCPCS: 99212 ==

== ENCOUNTER 2024-05-08 18:30 | Emergency (ER) | payer MEDICARE, OTHER, MEDICAID, SELFPAY ==
--- NOTE | ~2024-05-08 | US_ITS ---
EXAMINATION: US TRIPLEX LOWER EXTREMITY, BILATERAL CLINICAL INFORMATION: Edema. COMPARISON: No recent priors. TECHNIQUE: Color-flow triplex imaging with spectral analysis and compression Doppler were performed on the bilateral lower extremities. FINDINGS: Respiratory variation, normal compression and augmented flow are noted throughout the bilateral lower extremities. The visualized common femoral vein, superficial femoral vein, profunda femoral vein, popliteal vein and midcalf peroneal and posterior tibial venous segments show no evidence of deep venous thrombosis bilaterally. There is no Yoo's cyst. US/US venous duplex LE BI IMPRESSION: No evidence of deep venous thrombosis involving the bilateral lower extremities. Electronically signed by: Laura Alfaro MD 05/08/2024 09:51 PM EDT
[2024-05-08 19:13] VITALS: BP 148/92; PULSE 86; RESP 18; TEMP 37.1; O2SAT 95; BMI 36.9
--- NOTE | 2024-05-08 19:19 | ED.GENADULT ---
HPI - General Adult General Chief complaint: Extremity Injury, Lower Stated complaint: fall at work 4 days ago Time Seen by Provider: 05/09/24 00:51 Source: patient Mode of arrival: ambulatory Limitations: no limitations History of Present Illness ED Provider: Dr. Osiris Jiménez HPI narrative: Patient comes to the emergency room complaining of right-sided leg swelling. Patient states that 4 days ago patient slipped and fell. Patient states it was work related but states she has not actually employed by that particular place. Patient states that somebody help her up when she fell and she has been able to walk but now the pain is getting worse. Patient noted that the right leg has gotten more swollen. Patient takes 40 mg of Lasix once a day, usually helps with the swelling on both legs but this time the right leg remains a bit swollen. Patient denies chest pain or shortness of breath. Related Data Home Medications ?Medication ?Instructions ?Recorded ?Confirmed [id number]-[id number]-[id number] 45 mg-folic 1 cap PO DAILY@0600 06/02/20 01/24/24 acid 800 mcg-vit K 120 mcg capsule (Bariatric Multivitamins) irbesartan 150 mg tablet 1 tab PO DAILY 08/25/20 01/24/24 oxygen-air delivery systems ##1 12/01/20 01/24/24 atorvastatin 20 mg tablet 20 mg PO DAILY 06/08/21 01/24/24 furosemide 40 mg tablet 40 mg PO DAILY 04/28/22 01/24/24 risankizumab-rzaa 150 mg/mL 150 mg subcut Q12W 04/28/22 01/24/24 subcutaneous pen injector (Skyrizi) hydralazine 25 mg tablet 25 mg PO BID 07/09/22 01/24/24 clobetasol 0.05 % topical ointment 1 appl topical BID 05/23/23 01/24/24 Previous Rx's ?Medication ?Instructions ?Recorded cetirizine 10 mg tablet (Zyrtec) 10 mg PO DAILY PRN allergy 06/10/22 symptoms #30 tabs epinephrine 0.3 mg/0.3 mL 0.3 mg (0.3 mL) IM Q20M PRN 06/10/22 injection, auto-injector (EpiPen) anaphylaxis #2 ea furosemide 40 mg tablet (Lasix) 40 mg PO BID #14 tabs 05/09/24 Allergies Allergy/AdvReac Type Severity Reaction Status Date / Time No Known Allergies Allergy Verified 05/08/24 19:17 [No Known Allergies*] Review of Systems Review of Systems: Constitutional : No Weight loss, No Fever, No Chills, No Night Sweats, No Fatigue, No Malaise ENT/Mouth : No Hearing loss, No Ear Pain, No Nasal Congestion, No Sinus Pain, No Hoarseness, No sore throat, No Rhinorrhea, No Swallowing Difficulty Eyes: No Eye Pain, No Swelling, No Redness, No Foreign Body, No Discharge, No Vision Changes Cardiovascular : No Chest Pain, No SOB, No Dyspnea on Exertion, No Orthopnea, No Edema, No Palpitations Respiratory : No Cough, No Sputum, No Wheezing, No Smoke Exposure, No Dyspnea Gastrointestinal : No Nausea, No Vomiting, No Diarrhea, No Constipation, No abdominal Pain, No Hematochezia, No Melena Genitourinary : no irregular bleeding, No Dysuria, No Urinary Frequency, No Hematuria, No Urinary Incontinence, No Urgency, No Flank Pain, No Urinary Flow Changes, No Hesitancy Musculoskeletal : Complaining of right leg swelling and pain after a fall. No joint pain, No Myalgias, No Joint Swelling Skin : No Skin Lesions, No rash Neuro : No Weakness, No Numbness, No Paresthesias, No Loss of Consciousness, No Dizziness, No Headache Psych : No Anxiety/Panic, No Depression, No SI/HI/AH/VH, No Social Issues, Heme/Lymph: No Bruising, No Bleeding,No Lymphadenopathy Endocrine : No Polyuria, No Polydipsia, No Temperature Intolerance [facility] Past Medical History Medical History Nasal turbinate hypertrophy Allergic rhinitis ZURI on CPAP Obesity (BMI 30.0-34.9) Spinal stenosis Hyperlipidemia Psoriasis Seasonal allergies Neck arthritis Dysfunction of right rotator cuff Hypertension Low vitamin D level Fibromyalgia Surgical History History of repair of hiatal hernia Status post laparoscopic sleeve gastrectomy History of cataract surgery History of sinus surgery History of partial hysterectomy History of myomectomy History of colonoscopy Hx of breast reduction, elective History of appendectomy Family History Family History Father Unknown family medical history Mother Alive and well Diabetes mellitus Brother Alive and well Brother Alive and well Sister Alive and well Social History Social History Household Members Other:: lives alone Housing: Apartment Alcohol intake: never Patient Tobacco Use Status: Never used Tobacco Advance Directives: No Advance Directives Information Provided: No Do you have a plan to hurt others: No Plan service: No Current occupational status: retired 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 Oriented X3. No acute distress. Eyes: Pupils equal, round and reactive to light. ENT: Pharynx normal. Neck: Normal inspection. Neck supple. No lymph nodes noted. No crepitus CVS: Normal heart rate and rhythm. Pulses normal. Normal S1 and S2 Respiratory: No respiratory distress. Breath sounds normal. No Wheezing. No rales Abdomen: Soft and nontender. No rigidity. No distention. Skin: Skin warm and dry. Normal skin color. Normal skin turgor. Extremities: Patient has bilateral lower extremity edema, + 2 in the left leg, +3 in the right leg. Pain to palpation in the calf area and throughout the entire leg on the right. No calf pain or leg pain on the left Neuro: Oriented X 3. No motor deficit. No sensory deficit. Moving all extremities. No slurred speech. CN 2 through 12 grossly intact Psych: calm, cooperative, normal affect Course Course Course Narrative: RME: done by SAGE Bass. 60-year-old female presents to the ED for right leg swelling for the past 2 days without any trauma. Patient denies any chest pain or shortness of breath. Patient states compliant with her Lasix. Physical exam positive for right leg swelling without any pain or erythema. Lungs are clear. Labs ultrasound ordered Medical Decision Making Medical Decision Making MDM Narrative: My interpretation of labs: Normal hematology and chemistry. -ultrasound of the legs bilaterally is negative for DVT. -patient instructed to follow-up with her primary care physician, patient may need a repeat ultrasound in 1 week if the symptoms persist Differential Diagnosis Differential Diagnoses: The differential diagnosis associated with the presentation includes (DVT, contusion, edema) Admission/Observation Consideration of admission/observation: Escalation of care including admission/observation considered (Given patient's history and symptoms, observation was considered) Lab Data MDM Lab Attestation statement: I reviewed the patient's lab results. 05/08/24 20:20 05/08/24 20:20 Labs: Lab Results 05/08/24 Range/Units 20:20 WBC 5.8 (4.8-10.8) X10*3/uL RBC 4.79 (4.20-5.50) X10*6/uL Hgb 13.4 (12.0-16.0) g/dl Hct 41.0 (37.0-47.0) % MCV 85.6 (80.0-98.0) fL MCH 28.0 (27.0-33.0) pg MCHC 32.7 (31.0-35.0) g/dl RDW 15.2 (11.0-16.0) % Plt Count 180 (160-400) X10*3/uL MPV 10.4 (9.4-12.3) fL Immature Gran % (Auto) 0.2 (0.0-0.4) % Neut % (Auto) 68.7 (45-73) % Lymph % (Auto) 20.8 (20-40) % Payette % (Auto) 8.8 (2-11) % Eos % (Auto) 1.2 (0-4) % Baso % (Auto) 0.3 (0-2) % Lymph # (Auto) 1.2 (1.2-4.9) X10*3/uL Payette # (Auto) 0.5 (0.1-1.2) X10*3/uL Eos # (Auto) 0.1 (0.0-0.4) X10*3/uL Baso # (Auto) 0.0 (0.0-0.2) X10*3/uL Abs Immat Gran (auto) 0.01 (0.00-0.03) X10*3/uL Absolute Neuts (auto) 4.0 (2.0-8.3) x10*3/uL Absolute Nucleated RBC 0.000 (0.0-0.012) X10*3/uL Nucleated RBC % (auto) 0.0 (0.0-0.2) /100WBC PT 10.4 L (10.9-12.4) SEC INR 0.9 (0.9-1.1) APTT 34.6 (26.0-36.8) SEC Sodium 145 (135-145) mmol/L Potassium 3.8 (3.3-5.1) mmol/L Chloride 109 H (96-108) mmol/L Carbon Dioxide 28 (22-29) mmol/L Anion Gap 12 (12-20) BUN 18 H (9-16) mg/dL Creatinine 0.98 (0.5-1.4) mg/dL Estim Creat Clear Calc 73.8 Estimated GFR 56 Random Glucose 127 H (60-115) mg/dL Calcium 9.2 (8.4-10.2) mg/dL Total Bilirubin 0.3 (0.0-1.0) mg/dL AST 21 (5-31) U/L ALT 16 (0-31) U/L Alkaline Phosphatase 79 (39-117) U/L B-Natriuretic Peptide 48 (<100) pg/mL Total Protein 7.2 (6.5-8.0) g/dL Albumin 4.0 (3.5-5.0) g/dL Independent Interpretation I performed an independent interpretation of an: Ultrasound Interpretation: Respiratory variation, normal compression and augmented flow are noted throughout the bilateral lower extremities. The visualized common femoral vein, superficial femoral vein, profunda femoral vein, popliteal vein and midcalf peroneal and posterior tibial venous segments show no evidence of deep venous thrombosis bilaterally. There is no Yoo's cyst. US/US venous duplex LE BI IMPRESSION: No evidence of deep venous thrombosis involving the bilateral lower extremities. Critical Care Time Critical Care Time Critical Care Time: Yes Total Critical Care Time: 30 Attestation: I have personally provided critical care time. Time includes review of lab data, radiology results, discussion with consultants, and monitoring for potential decompensation. Intervention performed as documented. Discharge Plan Discharge Clinical Impression: Bilateral edema of lower extremity Patient Disposition: Home, Self-Care Instructions: Leg Edema (ED), Edema (ED) Additional Instructions: Please follow-up with your primary care physician tomorrow. If you have any worsening or new symptoms, please return to the emergency room or call 911 Prescriptions: New furosemide [Lasix] 40 mg tablet 40 mg PO BID Qty: 14 0RF No Action irbesartan 150 mg tablet 1 tab PO DAILY cetirizine [Zyrtec] 10 mg tablet 10 mg PO DAILY PRN (Reason: allergy symptoms) Qty: 30 0RF epinephrine [EpiPen] 0.3 mg/0.3 mL auto-injector 0.3 mg IM Q20M PRN (Reason: anaphylaxis) Qty: 2 0RF Rx Instructions: do not exceed 3 doses per episode Bariatric Multivitamins 45 mg iron- 800 mcg-120 mcg capsule 1 cap PO DAILY@0600 (DME) oxygen-air delivery systems Device See Rx Instructions .ROUTE .MEDSUPPLY Qty: 1 Rx Instructions: As directed, pt is on c-pap not oxygen atorvastatin 20 mg tablet 20 mg PO DAILY furosemide 40 mg tablet 40 mg PO DAILY Skyrizi 150 mg/mL pen injector 150 mg subcut Q12W hydralazine 25 mg tablet 25 mg PO BID clobetasol 0.05 % ointment 1 appl topical BID Discharge Date/Time: 05/09/24 01:38 Print Language: Russian
[2024-05-08 20:30] LABS: MANUAL DIFF FLAG NO
[2024-05-08 20:32] LABS: Basophils Percent Auto 0.3 % (0-2); Eosinophils Absolute Auto 0.1 X10*3/uL (0.0-0.4); Eosinophils Percent Auto 1.2 % (0-4); Hemoglobin 13.4 g/dl (12.0-16.0); Imm Gran Abs Auto 0.01 X10*3/uL (0.00-0.03); Imm Gran Pct Auto 0.2 % (0.0-0.4); Lymphocytes Absolute Auto 1.2 X10*3/uL (1.2-4.9); Lymphocytes Percent Auto 20.8 % (20-40); Mean Corpuscular HGB Conc 32.7 g/dl (31.0-35.0); Mean Corpuscular Volume 85.6 fL (80.0-98.0); Mean Platelet Volume 10.4 fL (9.4-12.3); Monocytes Absolute Auto 0.5 X10*3/uL (0.1-1.2); Monocytes Percent Auto 8.8 % (2-11); Neutrophils Percent Auto 68.7 % (45-73); Platelet Count 180 X10*3/uL (160-400); Red Blood Count 4.79 X10*6/uL (4.20-5.50); Red Cell Distribution Width 15.2 % (11.0-16.0); White Blood Count 5.8 X10*3/uL (4.8-10.8)
[2024-05-08 20:38] LABS: INTERNATIONAL NORM RATIO 0.9 (0.9-1.1); Prothrombin Time 10.4 SEC (10.9-12.4)
[2024-05-08 20:41] LABS: Partial Thromboplastin Time 34.6 SEC (26.0-36.8)
[2024-05-08 20:45] LABS: Alanine Aminotransferase 16 U/L (0-31); Alkaline Phosphatase 79 U/L (39-117); Anion Gap 12 (12-20); Aspartate Amino Transferase 21 U/L (5-31); Bilirubin Total 0.3 mg/dL (0.0-1.0); Blood Urea Nitrogen 18 mg/dL (9-16); Calcium 9.2 mg/dL (8.4-10.2); Carbon Dioxide 28 mmol/L (22-29); Chloride 109 mmol/L (96-108); Creatinine Clr Calc Pharmacy 73.8; Estimated Glomerular Filt Rate 56; Glucose Random 127 mg/dL (60-115); Potassium 3.8 mmol/L (3.3-5.1); Sodium 145 mmol/L (135-145); Total Protein 7.2 g/dL (6.5-8.0)
[2024-05-08 20:51] LABS: B Type Natriuretic Peptide 48 pg/mL (<100)
[2024-05-09 00:48] VITALS: BP 181/97; PULSE 71; RESP 18; TEMP 36.6; O2SAT 96
== END 2024-05-09 01:38 | disposition home or self-care (01) ==
PROVIDERS: Physician Assistant; Emergency Provider Emergency Medicine; PCP Internal Medicine
DX: R60.0 Localized edema (principal); R06.02 Shortness of breath; Z79.899 Other long term (current) drug therapy
CPT/HCPCS: 36415; 80053; 83880; 85025; 85610; 85730; 93970; 99283; 99284

== ENCOUNTER 2024-08-20 11:13 | Outpatient (AMB) | payer MEDICARE, OTHER, SELFPAY ==
--- NOTE | 2024-08-20 11:17 | MHC.OFFVISWM ---
VS Expanded 08/20/24 11:26 BP 176/81 H Blood Pressure Location Rt brachial Blood Pressure Position Sitting Pulse 91 Pulse Source Pulse Oximeter Temp 98.4 F Temperature Source Temporal Artery Scan Pulse Oximetry 98 Oxygen Delivery Method Room Air Height 5 ft 8.5 in Weight 253 lb BMI 37.9 Body Fat % 41.7 Body Fat Mass 105.4 Fat Free Mass 147.4 Visceral Fat Rating 14.0 Body Water % 41.2 Body Water Mass 104.2 Muscle Mass/Score 140.0 Basal Metabolic Rate/Score 2,034 Intake Visit Reasons: (OV) PO LSG 06/20/19 *SEE COMMENTS* Supervisor Elementary Education Required: No Allergies dust Allergy (Mild, Uncoded 08/20/24 11:22) sneezing Medication List - Last Reconciled 08/20/24 by SAGE Frost atorvastatin 20 mg PO DAILY cetirizine (Zyrtec) 10 mg PO DAILY PRN clobetasol 0.05% 1 appl topical BID epinephrine (EpiPen) 0.3 mg (0.3 mL) IM Q20M PRN hydralazine 25 mg PO BID irbesartan 1 tab PO DAILY bvecwjpntftq-zty-ooah-FA-vit K 45 mg iron- 800 mcg-120 mcg (Bariatric Multivitamins) 1 cap PO DAILY@0600 oxygen-air delivery systems As directed, pt is on c-pap not oxygen HPI Comments Details: Patient is a 69-year-old female who returns to the office today in follow-up. She is approximately 5 years 2 months post sleeve gastrectomy performed on 06/20/[address] Mckeon. She was last seen in the office in 07/20/2022. At that time, her weight was 236.8 lb with a BMI of 34.9. Weight today is 253 lb with a BMI of 37.4. She has not been following any meal plan and not exercising. She recently had septoplasty last week and has not been able to use her CPAP. She is thinking of following up with Dr Gordon at [facility]. Previously using Premier Protein RTD, Meal plan: nothing structured Exercise plan: none [facility] Medical History (Updated 05/10/24 @ 00:02 by Shay Marie) Nasal turbinate hypertrophy Allergic rhinitis ZURI on CPAP Obesity (BMI 30.0-34.9) Spinal stenosis Hyperlipidemia Psoriasis Seasonal allergies Neck arthritis Dysfunction of right rotator cuff Hypertension Low vitamin D level Fibromyalgia Surgical History (Updated 08/20/24 @ 11:27 by yAde Monk CMA) Hx of nasal septoplasty History of repair of hiatal hernia Status post laparoscopic sleeve gastrectomy History of cataract surgery History of sinus surgery History of partial hysterectomy History of myomectomy History of colonoscopy Hx of breast reduction, elective History of appendectomy Family History Father Unknown family medical history Mother Alive and well Diabetes mellitus Brother Alive and well Brother Alive and well Sister Alive and well Social History Household Members Other:: lives alone Housing: Apartment Alcohol intake: never Patient Tobacco Use Status: Never used Tobacco service: No Current occupational status: retired 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 Patient given a meal plan to consist of premier protein ready to drink shakes, 2 per day. She has been told to drink these over 2 hours each. Additionally, a meal with 7 forks of protein and 7 forks of vegetables. Patient given a paper for discount to the [employer]. Encouraged to go daily, goal of burning 350 calories per day. We will have her follow-up in the office in 1 month, texting sooner should she have any questions or concerns. Orders: Orders Insulin Today E50.9 - Vitamin A deficiency, unspecified, I10 - Essential (primary) hypertension, M79.7 - Fibromyalgia, Z98.84 - Bariatric surgery status Hemoglobin A1c Today E50.9 - Vitamin A deficiency, unspecified, I10 - Essential (primary) hypertension, M79.7 - Fibromyalgia, Z98.84 - Bariatric surgery status Complete Blood Count Auto Diff Today E50.9 - Vitamin A deficiency, unspecified, I10 - Essential (primary) hypertension, M79.7 - Fibromyalgia, Z98.84 - Bariatric surgery status Comprehensive Met. Panel Today E50.9 - Vitamin A deficiency, unspecified, I10 - Essential (primary) hypertension, M79.7 - Fibromyalgia, Z98.84 - Bariatric surgery status Vitamin B12 and Folate Today E50.9 - Vitamin A deficiency, unspecified, I10 - Essential (primary) hypertension, M79.7 - Fibromyalgia, Z98.84 - Bariatric surgery status Zinc Today E50.9 - Vitamin A deficiency, unspecified, I10 - Essential (primary) hypertension, M79.7 - Fibromyalgia, Z98.84 - Bariatric surgery status TSH reflex Free T4 Today E50.9 - Vitamin A deficiency, unspecified, I10 - Essential (primary) hypertension, M79.7 - Fibromyalgia, Z98.84 - Bariatric surgery status Lipid Panel Today E50.9 - Vitamin A deficiency, unspecified, I10 - Essential (primary) hypertension, M79.7 - Fibromyalgia, Z98.84 - Bariatric surgery status IRON PROFILE Today E50.9 - Vitamin A deficiency, unspecified, I10 - Essential (primary) hypertension, M79.7 - Fibromyalgia, Z98.84 - Bariatric surgery status C Reactive Protein Today E50.9 - Vitamin A deficiency, unspecified, I10 - Essential (primary) hypertension, M79.7 - Fibromyalgia, Z98.84 - Bariatric surgery status Vitamin B1 Today E50.9 - Vitamin A deficiency, unspecified, I10 - Essential (primary) hypertension, M79.7 - Fibromyalgia, Z98.84 - Bariatric surgery status Vitamin A Today E50.9 - Vitamin A deficiency, unspecified, I10 - Essential (primary) hypertension, M79.7 - Fibromyalgia, Z98.84 - Bariatric surgery status Ferritin Today E50.9 - Vitamin A deficiency, unspecified, I10 - Essential (primary) hypertension, M79.7 - Fibromyalgia, Z98.84 - Bariatric surgery status Vitamin D 25-OH Total Today E50.9 - Vitamin A deficiency, unspecified, I10 - Essential (primary) hypertension, M79.7 - Fibromyalgia, Z98.84 - Bariatric surgery status
[2024-08-20 11:26] VITALS: BP 176/81; PULSE 91; TEMP 36.9; O2SAT 98; BMI 37.9
== END 2024-08-20 11:53 | disposition home or self-care (01) ==
PROVIDERS: PCP Internal Medicine; Visit Provider Physician Assistant Surgical
DX: E66.812 Obesity, class 2 (principal); Z68.37 Body mass index [BMI] 37.0-37.9, adult; Z90.3 Acquired absence of stomach [part of]; Z98.84 Bariatric surgery status
CPT/HCPCS: 99213

== ENCOUNTER → 2024-08-20 11:13 | Outpatient (BNVA) | payer MEDICARE, OTHER, SELFPAY | PROVIDERS: PCP Internal Medicine; Visit Provider Physician Assistant Surgical | DX: Z98.84 Bariatric surgery status (principal) | CPT/HCPCS: 99212 ==

== ENCOUNTER 2024-09-08 09:37 | Outpatient (REF) | payer MEDICARE, OTHER, SELFPAY | END 2024-09-08 09:38 | disposition home or self-care (01) | LOC: HO.LAB 09:37 | PROVIDERS: PCP Internal Medicine; Visit Provider Dermatology | DX: Z13.89 Encounter for screening for other disorder (principal) ==

== ENCOUNTER 2024-10-08 09:11 | Outpatient (REF) | payer OTHER, MEDICARE, SELFPAY ==
[2024-10-08 09:31] LABS: MANUAL DIFF FLAG NO
--- OUTSIDE RECORDS SUMMARY | 2024-10-08 09:46 | XMS_ITS | Clinical Summary ---
Author Organization [facility] it Address [address] [place] [address] Care Team Providers Care Advertising Specialist Name Role Phone Mika Forrester MD Primary Care Provider [phone] Social History Tobacco Use Types Packs/Day Years Used Date Smoking Tobacco: Never Assessed Comments Unknown Sex and Gender Information Value Date Recorded Sex Assigned at Not on file Legal Sex Female 11:29 AM EST Gender Identity Not on file Sexual Orientation Not on file Plan of Treatment Health Maintenance Due Date Last Done Comments Breast Cancer Screening 1955 DTaP,Tdap,and Td Vaccines (1 - Tdap) 1974 Pneumococcal Vaccine: 50+ Ye ars (1 of 1 - PCV) 2005 Zoster Vaccines (1 of 2) 2005 COVID-19 Vaccine ( - 2023-2 5 season) 2024 Influenza Vaccine (#1) 2024 RSV Immunization Patients 60 + Years Old (1 - 1-dose 75+ series) 2030 HIB Vaccines Aged Out No longer eligi ble based on patient's age to complete this topic HPV Vaccines Aged Out No longer eligi ble based on patient's age to complete this topic Hepatitis A Vaccines Aged Out No long er eligible based on patient's age to complete this topic Hepatitis B Vaccines Aged Out No long er eligible based on patient's age to complete this topic IPV Vaccines Aged Out No longer eligi ble based on patient's age to complete this topic MMR Vaccines Aged Out No longer eligi ble based on patient's age to complete this topic Meningococcal ACWY Vaccine Aged Out N o longer eligible based on patient's age to complete this topic Meningococcal B Vacine Aged Out No lo nger eligible based on patient's age to complete this topic RSV Immunization Patients Un samy 20 months Aged Out No longer eligible b ased on patient's age to complete this topic Varicella Vaccines Aged Out No longer eligible based on patient's age to complete this topic Care Teams Advertising Specialist Relationship Specialty Start Date End Date Mika Forrester MD [address] [place] [address] Dr Edd MA PCP - [facility] [employer] 02/16/19
[2024-10-08 09:51] LABS: Eosinophils Absolute Auto 0.1 X10*3/uL (0.0-0.4); Eosinophils Percent Auto 1.2 % (0-4); Hematocrit 43.5 % (37.0-47.0); Hemoglobin 13.6 g/dl (12.0-16.0); Imm Gran Abs Auto 0.01 X10*3/uL (0.00-0.03); Imm Gran Pct Auto 0.2 % (0.0-0.4); Lymphocytes Absolute Auto 1.1 X10*3/uL (1.2-4.9); Lymphocytes Percent Auto 26.5 % (20-40); Mean Corpuscular HGB Conc 31.3 g/dl (31.0-35.0); Mean Corpuscular Hemoglobin 26.9 pg (27.0-33.0); Mean Corpuscular Volume 86.1 fL (80.0-98.0); Mean Platelet Volume 10.6 fL (9.4-12.3); Monocytes Absolute Auto 0.4 X10*3/uL (0.1-1.2); Monocytes Percent Auto 10.4 % (2-11); Neutrophils Absolute Auto 2.6 x10*3/uL (2.0-8.3); Neutrophils Percent Auto 61.7 % (45-73); Platelet Count 171 X10*3/uL (160-400); Red Blood Count 5.05 X10*6/uL (4.20-5.50); Red Cell Distribution Width 15.3 % (11.0-16.0); White Blood Count 4.2 X10*3/uL (4.8-10.8)
[2024-10-08 10:10] LABS: Estimated Average Glucose 128 mg/dL; Hemoglobin A1c % 6.1 % (<6.0)
[2024-10-08 10:43] LABS: Alanine Aminotransferase 20 U/L (0-31); Alkaline Phosphatase 75 U/L (39-117); Anion Gap 10 (12-20); Aspartate Amino Transferase 25 U/L (5-31); Bilirubin Total 0.7 mg/dL (0.0-1.0); Blood Urea Nitrogen 16 mg/dL (9-16); C Reactive Protein 0.21 mg/dL (< or = 0.50); Carbon Dioxide 28 mmol/L (22-29); Chloride 111 mmol/L (96-108); Estimated Glomerular Filt Rate > 60; Glucose Random 104 mg/dL (60-115); Iron 105 mcg/dL (30-160); Percent Iron Saturation 46 % (15-50); Potassium 4.1 mmol/L (3.3-5.1); Sodium 145 mmol/L (135-145); Total Iron Binding Capacity 228 mcg/dL (228-428); Total Protein 7.6 g/dL (6.5-8.0); Unsaturated Iron Binding 123 ug/dL
[2024-10-08 10:46] LABS: Ferritin 89 ng/mL (10-250); TSH reflex Free T4 1.83 uIU/mL (0.32-4.0); Vitamin D 25-OH Total 49.9 ng/mL (>30)
[2024-10-08 10:47] LABS: Vitamin D 25-OH Total 51.6 ng/mL (>30)
[2024-10-08 10:56] LABS: Insulin 15 uU/mL (2-29)
[2024-10-08 10:59] LABS: Vitamin B12 626 pg/mL (200-900)
[2024-10-10 23:54] LABS: TS Negative Control Passed; TS Panel A 1; TS Panel B 0; TS Positive Control Passed; TSpotTB Negative (Negative)
[2024-10-11 01:28] LABS: Zinc 70 mcg/dL (60-130)
== END 2024-10-08 09:12 | disposition home or self-care (01) ==
LOC: HO.LAB 09:11
PROVIDERS: Physician Assistant Surgical; PCP Internal Medicine; Visit Provider Dermatology
DX: L40.0 Psoriasis vulgaris (principal); Z98.84 Bariatric surgery status; M79.7 Fibromyalgia; E50.9 Vitamin A deficiency, unspecified; I10 Essential (primary) hypertension; Z13.1 Encounter for screening for diabetes mellitus
CPT/HCPCS: 36415; 80053; 82306; 82607; 82728; 82746; 83036; 83525; 83540; 84443; 84630; 85025; 86140; 86481

== ENCOUNTER 2024-10-18 14:35 | Outpatient (AMB) | payer OTHER, MEDICARE, SELFPAY ==
--- NOTE | 2024-10-18 14:51 | A.OFFPC_ITS ---
Vital Signs 10/18/24 14:52 Height 5 ft 8.4 in Weight 253 lb BMI 38.0 BP 136/80 Blood Pressure Location Lt brachial Position Sitting Respiration 18 Pulse 89 Pulse Source Pulse Oximeter Temp 97.7 F Temp Source Axillary Pulse Oximetry (%) 98 Oxygen Delivery Method Room Air Intake Visit Reasons: Routine Intake Note: Pt is here for a follow up from ER visit last week. Pharmacology Associate Required: No Post menopausal: No Patient : No Allergies dust Allergy (Mild, Uncoded 10/18/24 15:00) sneezing Medication List - Last Reconciled 10/18/24 by Courtney Whyte MD atorvastatin 20 mg PO DAILY cetirizine (Zyrtec) 10 mg PO DAILY PRN clobetasol 0.05% 1 appl topical BID epinephrine (EpiPen) 0.3 mg (0.3 mL) IM Q20M PRN hydralazine 25 mg PO BID irbesartan 1 tab PO DAILY nlimfpxscezl-zbq-ufoz-FA-vit K 45 mg iron- 800 mcg-120 mcg (Bariatric Multivitamins) 1 cap PO DAILY@0600 oxygen-air delivery systems As directed, pt is on c-pap not oxygen Fall risk assessment: No Falls in past year Dental Screening Did you have a dental visit in the last 12 months?: No Did you have a dental problem in the last 6 months where you did not have access to dental care?: No Was dental information given to patient?: No HPI HPI Comments History of Present Illness Details The patient is a 69 year old female with htn, hld, edison, back pain, fibromyalgia presenting for follow up Underwent tubinate surgery with ENT in August. Still has some issues using her cpap-the area is still sensitive. CV: On irbesartan 150mg, hydralazine, atorvastatin, furosemide. Denies Referred to pain management. Low back pain. High daily pain levels. Has muscle and joint pain ROS CONSTITUTIONAL: Denies weight loss, fever and chills. HEENT: Denies changes in vision and hearing. RESPIRATORY: Denies SOB and cough. CV: Denies palpitations and CP GI: Denies abdominal pain, nausea, vomiting and diarrhea. : Denies dysuria and urinary frequency. MSK: Denies new myalgia and joint pain. SKIN: Denies rash and pruritus. NEUROLOGICAL: Denies headache PSYCHIATRIC: Denies recent changes in mood. PHYSICAL EXAM: GENERAL: Alert and oriented x 3. NAD EYES: EOMI. Anicteric. HENT: Moist mucous membranes. No scleral icterus. No cervical lymphadenopathy. LUNGS: Clear to auscultation bilaterally. CARDIOVASCULAR: Regular rate and rhythm. No murmur. No JVD. ABDOMEN: Soft, non-tender +bs EXTREMITIES: No edema. Non-tender. SKIN: No rashes or lesions. Warm. NEUROLOGIC: No focal neurological deficits. CN II-XII grossly intact PSYCHIATRIC: Cooperative. Appropriate mood and affect [facility] Medical History Nasal turbinate hypertrophy Allergic rhinitis EDISON on CPAP Obesity (BMI 30.0-34.9) Spinal stenosis Hyperlipidemia Psoriasis Seasonal allergies Neck arthritis Dysfunction of right rotator cuff Hypertension Low vitamin D level Fibromyalgia Surgical History Hx of nasal septoplasty History of repair of hiatal hernia Status post laparoscopic sleeve gastrectomy History of cataract surgery History of sinus surgery History of partial hysterectomy History of myomectomy History of colonoscopy Hx of breast reduction, elective History of appendectomy Family History Father Unknown family medical history Mother Alive and well Diabetes mellitus Brother Alive and well Brother Alive and well Sister Alive and well Social History Household Members Other:: lives alone Housing: Apartment Alcohol intake: never Patient Tobacco Use Status: Never used Tobacco e-Cigarette/Vaping Use: Never Used service: No Current occupational status: retired 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 [employer] Current occupational exposures/hazards: No Cognitive needs: No Hearing needs: Yes Vision needs: Yes Physical exam (Primary Care) Vital Signs: Last Vital Signs Temp 97.7 F 10/18/24 14:52 Pulse 89 10/18/24 14:52 Resp 18 10/18/24 14:52 BP 136/80 10/18/24 14:52 Pulse Ox 98 10/18/24 14:52 Oxygen Delivery Method Room Air 10/18/24 14:52 BMI result Body Mass Index 38.0 Tobacco/Smoking Status: Tobacco use Status Patient Tobacco Use Status Never used Tobacco 10/18/24 15:06 e-Cigarette/Vaping Use Never Used 10/18/24 15:06 Coding Level of Care Code New Pt Level 4 (72881) Complex EM visit Add On G2211 Diagnoses Lumbar radiculopathy M54.16 Primary hypertension I10 Hypertension type: primary hypertension Assessment & Plan Assessment & Plan (1) Lumbar radiculopathy: Code(s): M54.16 - Radiculopathy, lumbar region Category: Medical (2) Hypertension: Code(s): I10 - Essential (primary) hypertension Category: Medical Qualifiers: Hypertension type: primary hypertension Qualified Code(s): I10 - Essential (primary) hypertension Plan 69 y/o to establish care past medical, surgical, social, family history reviewed Start gabapentin bedtime. Starty daily duloxetine Medications: New gabapentin 300 mg PO BEDTIME 90 caps 3RF duloxetine (Cymbalta) 30 mg PO DAILY 90 caps 3RF prednisone 40 mg (2 x 20 mg) PO DAILY 5 days 10 tabs 0RF
[2024-10-18 14:52] VITALS: BP 136/80; PULSE 89; RESP 18; TEMP 36.5; O2SAT 98; BMI 38.0
--- OUTSIDE RECORDS SUMMARY | 2024-10-18 17:15 | XMS_ITS | Continuity of Care Document ---
Author Organization [facility] ter Address [address] [place] [id number]- Care Team Providers Care It Operations Specialist Name Role Phone Mika Forrester MD Primary Care Physician [phone] [id number] Date(s): 10/11/24 - 10/11/[address] [address]- Encounter Diagnosis Feeling tired(Final) - 10/11/24 Discharge Disposition: A-D/C Home Attending Physician: Kathryn Yadav MD Admitting Physician: Kathryn Yadav MD Referring Physician: Not on Staff, Referring MD Encounter Type: Disch ES Allergies, Adverse Reactions, Alerts Substance Criticality Severity Reaction Reaction Severity Status Dust rash Active Other Environmental Allergy 1 tree allergy-rash Active 1tree allergy-rash Medications Amlodipine = 2.5 mg, By Mouth, Daily in AM, 0 Refills, Maintenance, 03/20/19 5:09:32 PM EDT Start Date: 03/20/19 Status: Ordered Repeat number: 1 atorvastatin 10 mg oral tablet 1 tablet = 10 mg, By Mouth, Daily in AM, # 30 tablet, 0 Refills, Maintenance, 03/20/19 3:43:36 PM EDT Start Date: 03/20/19 Status: Ordered Quantity: 30.0 Unit: tablet Repeat number: 1 B-12 1 tablet, By Mouth, Daily in AM, 0 Refills, Maintenance, 03/20/19 3:44:39 PM EDT Start Date: 03/20/19 Status: Ordered Repeat number: 1 Celebrate B-12 sublingual tablet 1 tablet, Daily, 0 Refills, Maintenance, 08/10/24 9:04:00 AM EST, Tablet, Partial fill upon patient request if the prescription is for a schedule II opioid drug. Start Date: 08/10/24 Status: Ordered Repeat number: 1 flax oral capsule 1 capsule, By Mouth, Daily in AM, 0 Refills, Maintenance, 03/20/19 3:46:57 PM EDT Start Date: 03/20/19 Status: Ordered Repeat number: 1 hydrALAZINE 50 mg oral tablet 0 Refills, Maintenance, 08/10/24 8:50:00 AM EST, Partial fill upon patient request if the prescription is for a schedule II opioid drug. Start Date: 08/10/24 Status: Ordered Repeat number: 1 Ilumya Subcutaneous Infusion, Every 3 months, last received on 03/01/19-for treatment of psoriasis, with determatologist, per pt., 0 Refills, Maintenance, 03/20/19 3:53:24 PM EDT Start Date: 03/20/19 Status: Ordered Repeat number: 1 irbesartan 150 mg oral tablet 0 Refills, Maintenance, 08/10/24 8:56:00 AM EST, Partial fill upon patient request if the prescription is for a schedule II opioid drug. Start Date: 08/10/24 Status: Ordered Repeat number: 1 Lasix 40 mg oral tablet 40 mg, 1, tablet, By Mouth, Daily in AM, # 30 tablet, Refills 0, Maintenance, 03/20/19 3:42:25 PM EDT Start Date: 03/20/19 Status: Ordered Quantity: 30.0 Unit: tablet Repeat number: 1 Losartan = 50 mg, By Mouth, 2 times a day, 0 Refills, Maintenance, 03/20/19 3:42:50 PM EDT Start Date: 03/20/19 Status: Ordered Repeat number: 1 Skyrizi Pen 150 mg/mL subcutaneous solution 0 Refills, Maintenance, 08/10/24 8:52:00 AM EST, Partial fill upon patient request if the prescription is for a schedule II opioid drug. Start Date: 08/10/24 Status: Ordered Repeat number: 1 Vitamin D3 2000 iu, By Mouth, Daily in AM, 0 Refills, Maintenance, 03/20/19 3:45:36 PM EDT Start Date: 03/20/19 Status: Ordered Repeat number: 1 Problem List Condition Confirmation Course Effective Dates Status Health St atus Informant Obese class II Confirmed Active Vital Signs Most recent to oldest [Reference Range]: 1 2 Oxygen Saturation [94-100 %] 99 % (10/11/24 4:42 PM) 99 % (10/11/24 2:19 PM) Pulse Rate [55-90 bpm] 52 bpm *L* (10/11/24 4:42 PM) 65 bpm (10/11/24 2:19 PM) Blood Pressure [90-138/55-84 mm Hg] 183/ 88mm Hg *H* (10/11/24 4:42 PM) 145/78mm Hg *H* (10/11/24 2:19 PM) Respiratory Rate [16-30 br/min] 18 br/mi n (10/11/24 4:42 PM) 18 br/min (10/11/24 2:19 PM) Temperature [96.8-100.4 DegF] 98.1 DegF (10/11/24 4:42 PM) 98.4 DegF (10/11/24 2:19 PM) Mode of Delivery (Oxygen) Room air (10/11/24 4:42 PM) Room air (10/11/24 2:19 PM) Blood pressure sites Arm, right (10/11/24 4:42 PM) Arm, left (10/11/24 2:19 PM) Temperature Route Oral (10/11/24 4:42 PM) Oral (10/11/24 2:19 PM) EKG study * Event Display: ECG 12-Lead Authored Date: Please click on pdf link to open report * Event Display: ECG 12-Lead Authored Date: Ventricular Rate: 58 BPM Atrial Rate: 58 BPM P-R Interval: 186 ms QRS Duration: 96 ms Q-T Interval: 410 ms QTC Calculation(Bazett): 402 ms P [place]: 80 degrees R [place]: 63 degrees T [place]: 85 degrees Sinus bradycardia Nonspecific T wave abnormality Abnormal ECG When compared with ECG of 11-Oct-2024 14:43, Nonspecific T wave abnormality has replaced inverted T waves in Lateral leads Confirmed by NURIA CRUZ MD ([id number]) on 10/11/2024 5:10:03 PM Conrad: NURIA CRUZ MD * Event Display: ECG 12-Lead Authored Date: Please click on pdf link to open report * Event Display: ECG 12-Lead Authored Date: Ventricular Rate: 61 BPM Atrial Rate: 61 BPM P-R Interval: 184 ms QRS Duration: 100 ms Q-T Interval: 440 ms QTC Calculation(Bazett): 442 ms P [place]: 45 degrees R [place]: 10 degrees T [place]: 109 degrees Normal sinus rhythm Left ventricular hypertrophy with repolarization abnormality ( R in aVL , Kimani product ) Abnormal ECG When compared with ECG of 04-Jan-2011 10:21, T wave inversion no longer evident in Inferior leads T wave inversion now evident in Lateral leads Confirmed by HODA CALI MD ([id number]) on 10/11/2024 4:08:23 PM Conrad: HODA CALI MD * Event Display: EKG Authored Date: [id number] * Event Display: EKG Authored Date: [id number] Patient Care team information Care Team Personnel Name: Mika Forrester MD Position: [facility] Outreach Member Role: PCP [address]: [address] [place] [address] [place] [address]- Telecom: Care Team Related Persons Name: MARIA ELENA RAPP Insurance Providers Guarantor name: ANA LUISA Health Plan Information #: 1 Payer: MEDICARE PART B OUTPT Member Number: [id number] Policy Number: NA Group Number: ANA LUISA Health Plan Information #: 2 Payer: [facility] Member Number: [id number] Policy Number: NA Group Number: [id number]
--- OUTSIDE RECORDS SUMMARY | 2024-10-18 17:15 | XMS_ITS | Data Portability ---
Author Organization [place] - [facility], Allergy Address [address] [place] [address] Care Team Providers Care Rn X Ray Name Role Phone JOSE AUGUSTINE Primary Care Provider Assessment Encounter Date Assessment Date Assessment LastModified by Organization Details LastModified Time 12/28/2023 12/28/2023 68-year-old female presents for reevaluation of nasal congestion. Nasal endoscopy was performed today and shows significant nasal turbinate hypertrophy bilaterally. She also has an obstructive spur mid left septum. It seems she would be a good candidate for turbinate reduction and possible septoplasty. I recommended an updated CT scan to be sure there are no polyps or sinus disease given reduced smell and taste. She will follow-up after CT scan for review and further planning. Should continue to follow with [facility] for allergy management. Was encouraged to begin immunotherapy for long-term benefit. All questions were answered. Not available 12/28/2023 10:07:32 03/09/2024 03/09/2024 Persistent nasal congestion secondary to turbinate hypertrophy refractory to medical therapy. Nasal endoscopy shows no polyps there is high septal deviation to the right anteriorly and posteriorly to the left. I do not think that is really contributing to her airway issues. I think she would benefit from out fracture and reduction of her inferior turbinates. Risks not limited to bleeding, infection, persistent obstruction and need for additional procedures. [email or web address] Not available 03/09/2024 08:41:41 08/24/2024 08/24/2024 69yo female presents following inferior turbinate surgery on 07/24/[address] Jesus. She has been following postoperative instructions. Exam shows healing inferior turbinates without purulence or nasal drainage. Recommend continued nasal saline spray 4-6 times daily. She can restart CPAP in 4 days and return to work, note provided today. [email or web address] Not available 08/24/2024 17:08:42 Plan of Treatment Reminders Order Date Submit Date Provider Last Modified By Organization Details Last Modified Time Details Appointments None recorded. Lab None recorded. Referral None recorded. Procedures None recorded. Surgeries submucous resection inferior turbinate (SURG) 2023 024 [email or web address] Not available 4 08:48:[address], orbits + paranasal sinuses, w/o contrast 2023 024 [email or web address] [facility] [place], [address], [address], [place], [address], 4 16:39:13 Medication Orders None recorded. Patient TargetsNo targets recorded. Patient InstructionsNo instructions recorded. Reason for Referral None Reported. Results Created Date Observation Date Name Description Value Unit Range Abnormal Flag Note LastModifiedBy Organization Detail LastModifiedTime 03/08/2003/06/2024 CT, sinus es, w/o contr ast No observ ation record ed. [email or web address] [facility] [place] [address], [place], [address], 03/09/2024 09:01:57 Result Notes None recorded. Problems Name Problem SNOMED Code Status Onset Date Resolution Date Notes Provider Name and Address Organization Details Recorded Time Hypertrop hy of nasal turbinate s 90728388 Active 2018 Hypertrop hy of nasal turbinate s; Note: Date Diagnosed : 11/03/2018 2:33 PM (J34.3) Not Available [facility] 4 02:23:06 Essential hypertens ion 70795492 Active 2018 Essential (primary) hypertens ion; Note: Date Diagnosed : 11/03/2018 2:33 PM (I10) Not Available [facility] 4 02:22:30 Nasal congestio n 98971498 Active 2018 Nasal congestio n; Note: Date Diagnosed : 11/03/2018 2:33 PM (R09.81) Not Available [facility] 4 02:22:54 Obstructi ve sleep apnea syndrome 13555637 Active 2018 Obstructi ve sleep apnea (adult) (pediatri c); Note: Date Diagnosed : 11/03/2018 2:35 PM (G47.33) Not Available [facility] 4 02:23:00 Pain of left temporoma ndibular joint 88802070224 544873 Active 2021 Arthralgi a of left temporoma ndibular joint; Note: Date Diagnosed : 2 11:35 AM (M26.622) Not Available [facility] 4 02:23:00 Headache 73438223 Active 2018 Headache, unspecifi ed; Note: Changed from R51 to R51.9 (12/03/2020 4:50 PM) , Date Diagnosed : 02/02/2019 12:11 PM (R51) Not Available [facility] 4 02:22:33 Otalgia of left ear 0612493915 Active 2021 Otalgia, left ear; Note: Date Diagnosed : 2 11:35 AM (H92.02) Not Available [facility] 4 02:23:04 Chronic rhinitis 90296622 Active 2018 Chronic rhinitis; Note: Date Diagnosed : 11/03/2018 2:33 PM (J31.0) Not Available [facility] 4 02:22:48 Sensorine ural hearing loss of bilateral ears 414730544 Active 2020 Sensorine ural hearing loss, bilateral ; Note: Date Diagnosed : 12/03/2020 4:33 PM (H90.3) Not Available [facility] 4 02:22:41 Referred otalgia 72601199 Active 2021 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 Procedures Surgical History Date Name Laterality Status Provider Name and Address Organization Details Recorded Time 5 Resect inferior turbinate completed DEYVI JESUS MD [address] [facility] [address], [place], [address], [place] [facility] 08/14/2024 09:45:39 4 JMSNasal/Sinus Endoscopy completed DEYVI JESUS MD [address] [facility] [address], [place], [address], [place] [facility] 03/09/2024 08:43:18 4 JMSNasal/Sinus Endoscopy completed ELIZABETH GANDHI PA-C [address] [facility],[address], [address], [facility] - [facility] 12/28/2023 10:05:50 Imaging Results Imaging Date Name Status LastModified by Organiz ation Details LastModified Time 03/06/2024 CT, sinuses, w/o contrast [email or web address] [facility] [place] [address] [facility] [address], [place], [address], 03/09/2024 09:01:57 Procedure Notes None recorded. Medical Equipment None Reported. Allergies Allergen ID Allergen Name Allergen Category Reaction Reaction Severity Criticality Documentation Date Start Date Code Code System Note Provider Name and Address Organization Details Recorded Time 491113 house dust allergeni c extract environme nt,medica tion Not available Not available Not available 12/28/2023 33075 9 RxNorm Robert crooks [place] [facility] 4 09:12:48 266006 ethinyl estradiol / levonorge strel medicatio n Not available Not available Not available 12/28/2023 60251 8 RxNorm Robert crooks [place] [facility] 4 09:13:05 Medications Name Sig Start Date Stop Date Status Note LastModified by Organization Details LastModified Time losartan 50 mg tablet 08/01 completed Medicati on ID: [id number] D uration Value: 30 Brand Name: losartan Send Method: E-Prescr ibed Sub s Allowed: subs OK Speci al Instruct ion: TAKE 1 TABLET BY MOUTH EVERY DAY Medi cationGe nericNam e: losartan Not Available Not Available Not Available cyclobenz aprine 10 mg tablet TAKE 1 TABLET BY MOUTH TWICE A DAY 11/29 completed Not Available Not Available Not Available furosemid e 40 mg tablet TAKE 1 TABLET BY MOUTH TWICE A DAY active Not Available Not Available No t Available atorvasta tin 20 mg tablet TAKE 1 TABLET BY MOUTH EVERY DAY active Not Available Not Available No t Available atorvasta tin 10 mg tablet 08/24 completed Medicati on ID: [id number] D uration Value: 30 Brand Name: atorvast atin Sen d Method: E-Prescr ibed Sub s Allowed: subs OK Speci al Instruct ion: TAKE 1 TABLET BY MOUTH EVERY DAY Medi cationGe nericNam e: atorvast atin Not Available Not Available Not Available ketotifen 0.025 % (0.035 %) eye drops ONE DROP EACH EYE TWICE A DAY NEEDED 03/07 completed Not Available Not Available Not Available gabapenti n 300 mg capsule TAKE 1 CAPSULE BY MOUTH EVERYDAY AT BEDTIME 11/29 completed Not Available Not Available Not Available monteluka st 10 mg tablet TAKE 1 TABLET BY MOUTH EVERYDAY AT BEDTIME 08/01 completed Not Available Not Available Not Available hydralazi ne 50 mg tablet TAKE 1 TABLET BY MOUTH TWICE A DAY active Not Available Not Available No t Available clobetaso l 0.05 % topical ointment 2023 active Not Available Not Available Not Avai lable irbesarta n 150 mg tablet TAKE 1 TABLET BY MOUTH EVERY DAY active Not Available Not Available No t Available fluticaso ne propionat e 50 mcg/actua tion nasal spray,casandra pension USE 1 SPRAY INTO BOTH NOSTRILS TWICE A DAY active Not Available Not Available No t Available ipratropi um bromide 21 mcg (0.03 %) nasal spray 2 spray into both nostrils 03/07 completed Medicati on ID: [id number] P johnna d By Name: Deyvi M. Schreibs tein, M.D. Bra nd Name: ipratrop ium bromide Send Method: E-Prescr ibed Sub s Allowed: subs OK Medic ationGen ericName : ipratrop ium bromide Not Available Not Available Not Available Skyrizi 150 mg/mL subcutane ous pen injector INJECT ONE PEN UNDER THE SKIN EVERY 12 WEEKS. active Not Available Not Available No t Available Vitals Date Recorded Body height Body mass index (BMI) Body weight Provider Name and Address Organization Details Last Updated DateTime 08/24/2024 175.26 cm 37.2 kg/m2 405904.28 g Samantha Jackman [facility] 08/24/2024 12:49:18 Social History Question Answer Notes LastModified by Organizat ion Details LastModified Time Tobacco Smoking Status Never Smoker Robert crooks [facility] 12/28/2023 09:13:55 What Is Your Level Of Alcohol Consumption? None [email or web address] Information not available 12/28/2023 Do You Use Any Illicit Or Recreational Drugs? No [email or web address] Information not available 12/28/2023 Do You Or Have You Ever Used Any Other Forms Of Tobacco Or Nicotine? No [email or web address] Information not available 12/28/2023 Sex: Unknown Functional Status None recorded. Mental Status None recorded. Family History Nothing Reported. Medical History Condition Response Hypertension Y High Cholesterol Y Gynecological HistoryNo gynecological history recorded. Obstetrics History GPAL:G 0 P 0 0 0 0 Past Encounters Encounter ID Performer Location Encounter Start Date Encounter Closed Date Diagnosis/Indication Diagnosis SNOMED-CT Code Diagnosis ICD10 Code Diagnosis Note [id number] DEYVI SHAW MD [facility] [address] [address] 12/28/2023 08:25:56 12/28/2023 09:57:35 Chronic rhinitis 19218064 J31.0 Hypertroph y of nasal turbinates 31365983 J34.3 Nasal congestion 3269460 0 R09.81 Obstructiv e sleep apnea syndrome 02946626 G47.33 [id number] DEYVI SHAW MD [facility] [address] [address] 03/09/2024 08:02:23 03/09/2024 08:47:43 Hypertrophy of nasal turbinates 73254747 J34.3 Discussed turbinate reduction. Patient has hypertroph y of the inferior turbinates with symptomati c limitation of airflow. Discussed previous attempts at medical management which have not been successful . They would now like to proceed with surgical interventi on with a bilateral inferior turbinate reduction under general anesthesia . The surgical risks of these procedures include, though not limited to, loss of smell and taste, bleeding, incomplete relief of nasal obstructio n, atrophic rhinitis, tooth or lip numbness, infection and the risk of septal perforatio n with its resultant whistling were discussed. In addition, I explained that sometimes so called Empty Nose Syndrome can be perceived by patient despite open airway Essential hypertension 69827586 I10 Sleep apnea 45181869 G47 .30 [id number] DEYVI SHAW MD [facility] [address] [address] 08/24/2024 12:20:08 08/24/2024 13:27:53 Hypertrophy of nasal turbinates 97676999 J34.3 Nasal congestion 9676750 0 R09.81 Postoperative visit 1836 61689 Z48.89 Health Concerns Section Related Observation LastModified by Organization Detai ls LastModified Time None Recorded Concern Status LastModified by Organization Details LastModified Time None Recorded Advance Directives Directive None Recorded Payers Encounter Date Sequence Insurance Name Policy Number Policy Galdamez Covered Member ID Galdamez Member ID Guarantor Name 12/28/2023 3 [place] [facility] Quinten Bowen [id number] Quinten Bowen 12/28/2023 1 [place] [employer] Quinten Bowen [id number] Quinten Bowen 03/09/2024 2 [facility] [place]AN 1 (MEDICARE SUPPLEMENT) [id number] Quinten Bowen [id number] Quinten Bowen 03/09/2024 1 [place] [employer] Quinten Bowen [id number] Quinten Bowen 08/24/2024 2 [place]AN 1 (MEDICARE SUPPLEMENT) [id number] Quinten Bowen [id number] Quinten Cotter Jessi 08/24/2024 1 [place] [facility] Quinten Bowen [id number] Quinten Cotter Bowen Notes Date Note Type Note Provider Name and Address Organization Details Recorded Time 12/28/2023 text/html 68-year-old emmy malhotra presents for reevaluation of nasal congestion. She has been evaluated in this office before and was found to have significant turbinate hypertrophy. Turbinate reduction was discussed but we did not proceed at that time. She is following [facility] for allergy. She has had allergy testing but not begun immunotherapy. Did have significant seasonal allergies. Continues to have significant bilateral nasal congestion with decreased smell and taste. This is interfering with her ability to use her CPAP mask. Has had a CT scan of the sinus in the past showing only turbinate hypertrophy and mild septal deviation. Uses Nasacort daily and no other nasal sprays. Finds little benefit from this. DEYVI JESUS MD [address] [place] [address],[address], [address], [facility] - [facility] 12/28/2023 12:45:11 03/09/2024 text/html Patient with longstanding history of nasal congestion secondary to allergic rhinitis, use of antihypertensive agents and obstructive sleep apnea. CT scan shows no evidence of sinus disease. This is similar to CT scan in 2020. She has tried multiple topical sprays including antihistamines, nasal steroids and Atrovent without improvement. DEYVI JESUS MD [address] [facility],[address], [address], [place] - [facility] 03/09/2024 08:45:04 08/24/2024 text/html 69yo female pres ents following inferior turbinate surgery on 07/24/[address] Jesus.She has been following postoperative instructions. Mild nasal congestion bilaterally. DEYVI JESUS MD [address] [facility],[address], [address], [place] - [facility] 08/26/2024 18:57:50 OBGyn Episode No OBEpisode recorded.
--- OUTSIDE RECORDS SUMMARY | 2024-10-18 17:15 | XMS_ITS | Clinical Summary ---
Author Organization [facility] it Address [address] [place] [address] Care Team Providers Care Salon Supervisor Name Role Phone Mika Forrester MD Primary Care Provider [phone] Social History Tobacco Use Types Packs/Day Years [...] age to complete this topic Care Teams Salon Supervisor Relationship Specialty Start Date End Date Mika Forrester MD [address] [place] [address] Dr Edd [place] PCP - General Instructor Kindergarten 02/16/19
--- OUTSIDE RECORDS SUMMARY | 2024-10-18 17:15 | XMS_ITS | Patient Health Record ---
Author Organization [employer] [facility] Address [address] [facility] [address] [place] [address] Care Team Providers Care Senior Ui Developer Name Role Phone Geo Hager MD Primary Care Provider González berkowitz Reason For Referral No Information Medications Medication SIG (Take, Route, Frequency, Duration) Notes Start Date End Date Status Vitamin D Active hydroCHLOROthiazide 25 MG Orally Active Benicar 40 MG Orally Active Problems Problem Type SNOMED Code ICD Code Onset Dates Problem Status W/U Status Risk Notes Problem Osteoporosis (93742156) Osteoporosis (733.0) Active confirmed Problem Essential hypertension (42881110) Essential (primary) hypertension (I10) Active confirmed Problem Obesity (180187585) Obesity, unspecified (E66.9) Active confirmed Problem Sleep apnea (96875850) Sleep apnea, unspecified (G47.30) Active confirmed Problem Psoriasis (7759058) Psoriasis, unspecified (L40.9) Active confirmed Plan Of Treatment No Information Insurance Providers Payer Name Payer Address Payer Phone Subscriber Number Group Number Insured Name Patient Relationship to Insured Coverage Start Date Coverage End Date [facility] [address] [place] [address] [id number] BRENDON ALTAMIRANO Self - patient is the insured Medical (General) History Medical History History ICD Code Essential (primary) hypertension Essential (primary) hypertension Sleep apnea, unspecified Osteoporosis Obesity, unspecified Psoriasis, unspecified Surgical History Surgery Date(Month/Year) APPENDECTOMY BREAST REDUCTION laparoscopic hysterectomy, ovaries remai n age 39 Myomectomy
== END 2024-10-18 15:24 | disposition home or self-care (01) ==
PROVIDERS: PCP Internal Medicine; Visit Provider Internal Medicine
DX: M54.16 Radiculopathy, lumbar region (principal); I10 Essential (primary) hypertension

== ENCOUNTER → 2024-10-18 14:35 | Outpatient (BNVA) | payer OTHER, MEDICARE, SELFPAY | PROVIDERS: PCP Internal Medicine; Visit Provider Internal Medicine ==

== ENCOUNTER 2024-11-07 10:09 | Outpatient (AMB) | payer MEDICARE, MEDICAID, SELFPAY ==
--- NOTE | 2024-11-07 10:11 | MHC.OFFVIS ---
Vital Signs 11/07/24 10:13 Height 5 ft 8.5 in Weight 256 lb BMI 38.4 BP 160/98 H Blood Pressure Location Lt brachial Position Sitting Respiration 16 Pulse 67 Pulse Source Pulse Oximeter Pulse Oximetry (%) 97 Oxygen Delivery Method Room Air Intake Visit Reasons: Back Pain YOVANY 07/06/23 [employer] Required: No Allergies dust Allergy (Mild, Uncoded 11/07/24 10:16) sneezing Medication List - Last Reconciled 11/07/24 by Naima Navarrete LPN atorvastatin 20 mg PO DAILY cetirizine (Zyrtec) 10 mg PO DAILY PRN clobetasol 0.05% 1 appl topical BID epinephrine (EpiPen) 0.3 mg (0.3 mL) IM Q20M PRN hydralazine 25 mg PO BID irbesartan 1 tab PO DAILY rmiatyyogrgl-rbf-iggs-FA-vit K 45 mg iron- 800 mcg-120 mcg (Bariatric Multivitamins) 1 cap PO DAILY@0600 oxygen-air delivery systems As directed, pt is on c-pap not oxygen HPI Comments Details: Ms. Bowen is back in my office after 3 years of absence. . Her most likely diagnosis is fibromyalgia however spondylosis of lumbar spine and spondylosis of cervical spine can not be 100% excluded. The patient today continues to complain on more pain in the cervical area. She reports flexing had backwards aggravate her pain more than flexing forward. She tried gabapentin and gabapentin gives her headaches. I offered her today to prescribe her baclofen as a muscle relaxants. I also recommended her physical therapy and home exercise program. I also recommended her low-impact aerobic exercise. She stated that she had an MRI of lumbar and cervical spine. The MRI dictation see as below. In the past we discuss coccydynia and possibility of treatment of coccygeal pain with ganglion impar injection. Also we discussed in the past possibility of treatment of her lower back pain with medial branch blocks. Today she presents with mostly complaining on cervicalgia. Prior: very pleasant 64 years old female who presents in my office with complains on pain all over her body. Specifically she reports severe pain in the projection of her lumbar spine as well as pain in the lateral hips. She reports pain in the projection of cervical spine lowest portion of the cervical spine. She also reports pain in the coccygeal area. She reports that all this problem started many years ago she was previously diagnosed with fibromyalgia. She reports that she has pain 5/6 out of 10. she reports her pain is increase the in positions of pain down as well as standing up as well as sitting. She reports that the most pain she experiences in lumbar spine with flat position in bed. She reports that she had physical therapy and TENS unit in [facility] she reports minimal to moderate help with physical therapy and TENS unit. She reports some nerve block was performed for her but she does not know what kind of nerves were blocked and whether not it was image guided procedure she does not report presence of the any image guided instrument in the room. She had x-ray done and [facility] and she had MRI done at [facility]. We will be looking into the [facility] pain management records to obtain the results of that MRi [facility] Medical History Nasal turbinate hypertrophy Allergic rhinitis ZURI on CPAP Obesity (BMI 30.0-34.9) Spinal stenosis Hyperlipidemia Psoriasis Seasonal allergies Neck arthritis Dysfunction of right rotator cuff Hypertension Low vitamin D level Fibromyalgia Surgical History Hx of nasal septoplasty History of repair of hiatal hernia Status post laparoscopic sleeve gastrectomy History of cataract surgery History of sinus surgery History of partial hysterectomy History of myomectomy History of colonoscopy Hx of breast reduction, elective History of appendectomy Family History Father Unknown family medical history Mother Alive and well Diabetes mellitus Brother Alive and well Brother Alive and well Sister Alive and well Social History Household Members Other:: lives alone Housing: Apartment Alcohol intake: never Patient Tobacco Use Status: Never used Tobacco e-Cigarette/Vaping Use: Never Used service: No Current occupational status: retired 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 [employer] Current occupational exposures/hazards: No Cognitive needs: No Hearing needs: Yes Vision needs: Yes Review of Systems Const All systems reviewed & are unremarkable except as noted in HPI and below ENT Reports Normal hearing present Neuro Reports Normal hearing present Physical Exam Vital Signs: Last Vital Signs Pulse 67 11/07/24 10:13 Resp 16 11/07/24 10:13 BP 160/98 H 11/07/24 10:13 Pulse Ox 97 11/07/24 10:13 Oxygen Delivery Method Room Air 11/07/24 10:13 BMI result Body Mass Index 38.4 Const General: cooperative, healthy appearing, comfortable, no acute distress, well developed, alert and Physically active Nutritional Appearance: well nourished Orientation/consciousness: patient oriented x3 Limitations: no limitations HEENT Head: Yes normal to inspection Eyes General: appearance normal, both eyes and all related structures Pupils: Equal, round and reactive pupils present Neck Neck: Yes tender ( The projection of the cervical spine) Chest Chest palpation & inspection: normal inspection of the chest Resp Effort & Inspection: normal respiratory effort, able to speak in complete sentences, normal respiratory pattern, no audible wheezes, no cough, respiratory effort not decreased and symmetric chest movement Cardio Jugular venous distension: no JVD GI Inspection: Yes normal to inspection Back/Spine/Pelvis Other: she is able to flex herself forward only about to the 50?. She reports severe pain on this maneuver flexing backwards aggravate her pain very small little. Remington test is negative bilaterally. Palpation of bilateral iliac crests is tender however she reports that this tenderness is coming from the sacral bone. Spinal region and paraspinal region in the projection of the lumbar spine is most tender on palpation in lumbar area. Straight leg rising is negative for pain increase. Remington test is negative, SLR is negative. Neuro General: patient oriented x3 Cranial nerves: Yes Equal, round and reactive pupils present and Yes Normal hearing present Extrem General: Yes normal to inspection and Yes full ROM Results Reviewed Results Reviewed: MRI cervical spine without contrast. Findings: There is normal alignment of the cervical vertebral bodies. Mild chronic loss of height at C5. Kywt-ke-ghryskhd loss of intervertebral disc space height throughout with marginal osteophyte formation and endplate Modic type changes. No finding of cervical fracture or listhesis. C1-C2 articulation and craniocervical junction showing degenerative changes otherwise of normal relationship. Paravertebral soft tissue of normal appearance. Examination through the cranial cervical junction shows it to be widely patent. Examination through the C2-C3 intervertebral level refilling posterior disc osteophyte mildly effacing the ventral CSF without called Flattening or signal cord changes. No significant foraminal narrowing. C3-C4 facet arthrosis. Uncovertebral degenerative changes. Posterior disc osteophyte with leftward prominence mild press of the left ventral cord. No cord signal changes or cord hemorrhage. Central AP canal diameter at this level measures approximately 6 mm no significant right foraminal narrowing. Moderate left foraminal narrowing. C4-C5 facet arthrosis uncovertebral degenerative changes. Posterior disc osteophyte. Effacement of the ventral CSF. Mild impressive of ventral cord. No cord signal changes or cord hemorrhage. Mild right foraminal narrowing. Moderate left foraminal narrowing. C5-C6: Facet arthrosis. Uncovertebral degenerative changes and posterior disc osteophyte. Effacement of ventral CSF. No significant Flattening. Cord signal changes. Moderate left foraminal narrowing. Moderate right foraminal narrowing. C6-C7 intervertebral level revealing facet arthrosis and uncovertebral degenerative changes. Posterior disc osteophyte. No significant canal stenosis. Moderate to severe left foraminal narrowing. No significant right foraminal narrowing. C7-T1: Intervertebral level reveals mild facet arthrosis. No central stenosis or significant foraminal narrowing. MRI lumbar spine without contrast. 08/04/2023 Findings routine spinal anatomy is presumed. No comparison examination. The last well-formed intervertebral disc is annotated as L5-S1. A saved screen has been sent to PACS for reference. Grade 1 anterolisthesis L3 on L4 and L4 on L5. Likely degenerative in nature. The remainder of lumbar spine demonstrates anatomic alignment. Vertebral heights are well-maintained. Type 2 Modic reactive endplate changes seen at L4-5. Bone marrow signal is otherwise within normal limits. And no suspicious osseous lesions is identified. Conus medullaris is unremarkable. Paraspinal soft tissues and visualized portions of the abdomen and pelvis are unremarkable. T12-L1 mild annular bulging. Mild facet arthropathy greater on the left. No significant central canal or neural foraminal narrowing. L1-L2 disc desiccation. Diffuse annular bulging. Bilateral facet arthropathy with ligamentum flavum thickening. Mild narrowing of the ventral aspect of the central canal. No significant neural foraminal narrowing. L2-L3 mild annular bulging. Bilateral facet arthropathy with ligamentum flavum thickening. No significant central canal or neural foraminal narrowing. L3-L4 disc desiccation. Grade 1 anterolisthesis L3 on L4. Diffuse disc bulging. Bulky bilateral facet arthropathy with ligamentum flavum thickening. Advanced central canal narrowing. Right neural foraminal narrowing greater on the left. L4-5 disc desiccation and moderate disc space narrowing. Grade 1 anterolisthesis L4 on L5 likely degenerative in nature. Diffuse disc bulging most pronounced right foraminal subarticular region. Bulky bilateral facet arthropathy. Ligamentum flavum thickening. Moderate central canal narrowing. Moderate bilateral neural foraminal narrowing. L5-S1 mild annular bulge. Bilateral facet arthropathy. Moderate bilateral neural foraminal narrowing. No central canal narrowing. Assessment & Plan Assessment & Plan (1) Fibromyalgia: Code(s): M79.7 - Fibromyalgia Category: Medical (2) Cervicalgia: Code(s): M54.2 - Cervicalgia Category: Medical (3) Psoriasis: Code(s): L40.9 - Psoriasis, unspecified Category: Medical (4) Osteoarthritis, generalized: Code(s): M15.9 - Polyosteoarthritis, unspecified Category: Medical (5) Spondylosis of lumbar region without myelopathy or radiculopathy: Code(s): M47.816 - Spondylosis without myelopathy or radiculopathy, lumbar region Category: Medical Plan: (6) Spinal stenosis, cervical region: Code(s): M48.02 - Spinal stenosis, cervical region Category: Medical Plan The pain of this patient most likely is multifactorial. The MRI of the cervical spine became available to me. The date on the MRI 08/18/2023. It was done at [facility]. There is significant spinal canal stenosis with diameter of the spinal canal at 1 location C3-C4 is 6 mm. I will referral risks patient to neurosurgical consult. At the same time for the treatment of her lower back pain and cervicalgia I recommend physical therapy. Very likely she is suffering from fibromyalgia. Therefore physical therapy is paramount importance for this patient. Once the patient will have neurosurgical consult I will consider injections for her neck and for her lower back. To help her pain I will prescribe baclofen for this patient. Orders: Orders PT Evaluation and Treatment Today M54.2 - Cervicalgia, M79.7 - Fibromyalgia Referrals Neurosurgery Referral M48.02 - Spinal stenosis, cervical region, M54.2 - Cervicalgia Medications: New baclofen 10 mg PO TID 30 days 90 tabs 6RF Patient Instructions: I here by testify that I spent 35 minutes in conversation with this patient as well as evaluating her prior records, evaluating diagnostic studies planning her care and organizing this note. Coding Level of Care Code Est Pt Level 4 (63938) Diagnoses Fibromyalgia M79.7 Cervicalgia M54.2 Psoriasis L40.9 Osteoarthritis, generalized M15.9 Spondylosis of lumbar region without myelopathy or radiculopathy M47.816 Spinal stenosis, cervical region M48.02
[2024-11-07 10:13] VITALS: BP 160/98; PULSE 67; RESP 16; O2SAT 97; BMI 38.4
--- OUTSIDE RECORDS SUMMARY | 2024-11-07 11:26 | XMS_ITS | Data Portability ---
Author Organization [place] - [facility], Allergy Address [address] [place] [address] Care Team Providers Care Soa Architect Name Role Phone JOSE AUGUSTINE Primary Care Provider [phone] Assessment Encounter Date Assessment Date Assessment LastModified [...] for long-term benefit. All questions were answered. [email or web address] Not available 12/28/2023 10:07:32 03/09/2024 03/09/2024 Persistent [...] submucous resection inferior turbinate (SURG) 2023 024 [email or web address] Not available 4 08:48:[address], orbits + paranasal sinuses, w/o contrast 2023 024 [email or web address] [facility] [place], [address], [address], [place], [address], 4 16:39:13 Medication Orders None recorded. Patient TargetsNo targets recorded. Patient InstructionsNo instructions recorded. Reason for Referral None Reported. Results Created Date Observation Date Name Description Value Unit Range Abnormal Flag Note LastModifiedBy Organization Detail LastModifiedTime 03/08/2003/06/2024 CT, sinus es, w/o contr ast No observ ation record ed. [email or web address] [facility] [place] [address], [place], [address], 03/09/2024 09:01:57 Result Notes None recorded. Problems Name Problem SNOMED Code Status Onset Date Resolution Date Notes Provider Name and Address Organization Details Recorded Time Hypertrop hy of nasal turbinate s 30837646 Active 2018 Hypertrop hy of nasal turbinate s; Note: Date Diagnosed : 11/03/2018 2:33 PM (J34.3) Not Available [facility] 4 02:23:06 Essential hypertens ion 49149772 Active 2018 Essential (primary) hypertens ion; Note: Date Diagnosed : 11/03/2018 2:33 PM (I10) Not Available [facility] 4 02:22:30 Nasal congestio n 65487375 Active 2018 Nasal congestio n; Note: Date Diagnosed : 11/03/2018 2:33 PM (R09.81) Not Available [facility] 4 02:22:54 Obstructi ve sleep apnea syndrome 11509708 Active 2018 Obstructi ve sleep apnea (adult) (pediatri c); Note: Date Diagnosed : 11/03/2018 2:35 PM (G47.33) Not Available [facility] 4 02:23:00 Pain of left temporoma ndibular joint 84049477860 062561 Active 2021 Arthralgi a of left temporoma ndibular joint; Note: Date Diagnosed : 2 11:35 AM (M26.622) Not Available [facility] 4 02:23:00 Headache 39273108 Active 2018 Headache, unspecifi ed; Note: Changed from R51 to R51.9 (12/03/2020 4:50 PM) , Date Diagnosed : 02/02/2019 12:11 PM (R51) Not Available [facility] 4 02:22:33 Otalgia of left ear 4095951012 Active 2021 Otalgia, left ear; Note: Date Diagnosed : 2 11:35 AM (H92.02) Not Available [facility] 4 02:23:04 Chronic rhinitis 95762621 Active 2018 Chronic rhinitis; Note: Date Diagnosed : 11/03/2018 2:33 PM (J31.0) Not Available [facility] 4 02:22:48 Sensorine ural hearing loss of bilateral ears 559873929 Active 2020 Sensorine ural hearing loss, bilateral ; Note: Date Diagnosed : 12/03/2020 4:33 PM (H90.3) Not Available [facility] 4 02:22:41 Referred otalgia 55686561 Active 2021 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 Procedures Surgical History Date Name Laterality Status Provider Name and Address Organization Details Recorded Time 5 Resect inferior turbinate completed DEYVI JESUS MD [address] [facility] [address], [address], [place] - [facility] 08/14/2024 09:45:39 4 JMSNasal/Sinus Endoscopy completed DEYVI JESUS MD [address] [facility] [address], [address], [place] [facility] 03/09/2024 08:43:18 4 JMSNasal/Sinus Endoscopy completed ELIZABETH GANDHI PA-C [address] [facility],[address], [address], [facility] - [facility] 12/28/2023 10:05:50 Imaging Results Imaging Date Name Status LastModified by Organiz ation Details LastModified Time 03/06/2024 CT, sinuses, w/o contrast [id number] [facility] [place] [address] [facility] [address], [place], [address], 03/09/2024 09:01:57 Procedure Notes None recorded. Medical Equipment None Reported. Allergies Allergen ID Allergen Name Allergen Category Reaction Reaction Severity Criticality Documentation Date Start Date Code Code System Note Provider Name and Address Organization Details Recorded Time 509454 house dust allergeni c extract environme nt,medica tion Not available Not available Not available 12/28/2023 12798 9 RxNorm Robert crooks [place] [facility] 4 09:12:48 111939 ethinyl estradiol / levonorge strel medicatio n Not available Not available Not available 12/28/2023 33953 8 RxNorm Robert crooks [place] [facility] 4 09:13:05 Medications Name Sig Start Date Stop Date Status Note LastModified by Organization Details LastModified Time losartan 50 mg tablet 08/01 completed Medicati on ID: [id number] D uration Value: 30 Brand Name: losartan [...] mg tablet 08/24 completed Medicati on ID: [id number] D uration Value: 30 Brand Name: atorvast [...] both nostrils 03/07 completed Medicati on ID: [id number] P johnna d By Name: Deyvi M. [...] Updated DateTime 08/24/2024 175.26 cm 37.2 kg/m2 890603.28 g Samantha Jackman [facility] 08/24/2024 12:49:18 Social History Question Answer Notes LastModified by Organizat ion Details LastModified Time Tobacco Smoking Status Never Smoker Robert crooks [facility] 12/28/2023 09:13:55 What Is Your Level Of Alcohol Consumption? None [email or web address] Information not available 12/28/2023 Do You Use Any Illicit Or Recreational Drugs? No [email or web address] Information not available 12/28/2023 Do You Or Have You Ever Used Any Other Forms Of Tobacco Or Nicotine? No [email or web address] Information not available 12/28/2023 Sex: Unknown Functional Status None recorded. Mental Status None recorded. Family History Nothing Reported. Medical History Condition Response High Cholesterol Y Hypertension Y Gynecological HistoryNo gynecological history recorded. Obstetrics History GPAL:G 0 P 0 0 0 0 Past Encounters Encounter ID Performer Location Encounter Start Date Encounter Closed Date Diagnosis/Indication Diagnosis SNOMED-CT Code Diagnosis ICD10 Code Diagnosis Note [id number] DEYVI SHAW MD [facility] [address] [address] 12/28/2023 08:25:56 12/28/2023 09:57:35 Chronic rhinitis 80350152 J31.0 Hypertroph y of nasal turbinates 92028912 J34.3 Nasal congestion 9539026 0 R09.81 Obstructiv e sleep apnea syndrome 97587022 G47.33 [id number] DEYVI SHAW MD [facility] [address] [address] 03/09/2024 08:02:23 03/09/2024 08:47:43 Hypertrophy of nasal turbinates 73146083 J34.3 Discussed turbinate reduction. Patient has hypertroph [...] by patient despite open airway Essential hypertension 34397544 I10 Sleep apnea 34567187 G47 .30 [id number] DEYVI SHAW MD [facility] [address] [address] 08/24/2024 12:20:08 08/24/2024 13:27:53 Hypertrophy of nasal turbinates 25649734 J34.3 Nasal congestion 9117753 0 R09.81 Postoperative visit 1836 97047 Z48.89 Health Concerns Section Related Observation LastModified by Organization Detai ls LastModified Time None Recorded Concern Status LastModified by Organization Details LastModified Time None Recorded Advance Directives Directive None Recorded Payers Encounter Date Sequence Insurance Name Policy Number Policy Galdamez Covered Member ID Galdamez Member ID Guarantor Name 12/28/2023 3 [place] [facility] Quinten Bowen [id number] Quinten Bowen 12/28/2023 1 [place] [employer] Quinten Bowen [id number] Quinten Bowen 03/09/2024 2 [facility] - PLAN 1 (MEDICARE SUPPLEMENT) [id number] Quinten Bowen [id number] Quinten Bowen 03/09/2024 1 [place] [employer] Quinten Bowen [id number] Quinten Bowen 08/24/2024 2 [employer] - PLAN 1 (MEDICARE SUPPLEMENT) [id number] Quinten Bowen [id number] Quinten Cotter Jessi 08/24/2024 1 [place] [facility] Quinten Bowen [id number] Quinten Cotter Bowen Notes Date Note Type [...] little benefit from this. DEYVI JESUS MD [address] [place] [address],[address], [address], [facility] - [facility] 12/28/2023 12:45:11 03/09/2024 text/html Patient with longstanding history of nasal congestion secondary to allergic rhinitis, use of antihypertensive agents and obstructive sleep apnea. CT scan shows no evidence of sinus disease. This is similar to CT scan in 2020. She has tried multiple topical sprays including antihistamines, nasal steroids and Atrovent without improvement. DEYVI JESUS MD [address] [facility],[address], [address], [place] - [facility] 03/09/2024 08:45:04 08/24/2024 text/html 69yo female pres ents following inferior turbinate surgery on 07/24/[address] Jesus.She has been following postoperative instructions. Mild nasal congestion bilaterally. DEYVI JESUS MD [address] [facility],[address], [address], [place] [facility] 08/26/2024 18:57:50 OBGyn Episode No OBEpisode recorded.
--- OUTSIDE RECORDS SUMMARY | 2024-11-07 11:26 | XMS_ITS | Clinical Summary ---
Author Organization [facility] ity Address [address] [place] [address] Care Team Providers Care Outcomes Manager Name Role Phone Mika Forrester MD Primary Care Provider [phone] Social History Tobacco Use Types Packs/Day Years [...] - 2023-2 5 season) 2024 Influenza Vaccine (Season Ended) 2025 RSV Immunization Adult Patie nts (1 - 1-dose 75+ series) 2030 HIB [...] age to complete this topic Meningococcal B Vaccine Aged Out No l onger eligible based on patient's age to complete this topic RSV Immunization Patients Un samy 20 months Aged Out No longer eligible b ased on patient's age to complete this topic Varicella Vaccines Aged Out No longer eligible based on patient's age to complete this topic Care Teams Outcomes Manager Relationship Specialty Start Date End Date Mika Forrester MD [address] [place] [address] Dr Edd [place] PCP - General [employer] 02/16/19
--- OUTSIDE RECORDS SUMMARY | 2024-11-07 11:26 | XMS_ITS | Patient Health Record ---
Author Organization [employer] [facility] Address [address] [place] [address] Care Team Providers Care Stained Glass Artist Name Role Phone Geo Hager MD Primary Care Provider González berkowitz Reason For Referral No Information Medications Medication SIG (Take, Route, Frequency, Duration) Notes Start Date End Date Status Vitamin D Active hydroCHLOROthiazide 25 MG Orally Active Benicar 40 MG Orally Active Problems Problem Type SNOMED Code ICD Code Onset Dates Problem Status W/U Status Risk Notes Problem Osteoporosis (19497823) Osteoporosis (733.0) Active confirmed Problem Essential hypertension (18590510) Essential (primary) hypertension (I10) Active confirmed Problem Obesity (613813702) Obesity, unspecified (E66.9) Active confirmed Problem Sleep apnea (24051088) Sleep apnea, unspecified (G47.30) Active confirmed Problem Psoriasis (1656797) Psoriasis, unspecified (L40.9) Active confirmed Plan Of Treatment No Information Insurance Providers Payer Name Payer Address Payer Phone Subscriber Number Group Number Insured Name Patient Relationship to Insured Coverage Start Date Coverage End Date [facility] [address] [place] [address] [id number] BRENDON ALTAMIRANO Self - patient is the insured Medical (General) History Medical History History ICD Code Essential (primary) hypertension Essential (primary) hypertension Sleep apnea, unspecified Osteoporosis Obesity, unspecified Psoriasis, unspecified Surgical History Surgery Date(Month/Year) APPENDECTOMY BREAST REDUCTION laparoscopic hysterectomy, ovaries remai n age 39 Myomectomy
== END 2024-11-07 10:50 | disposition home or self-care (01) ==
LOC: HO.PMC 10:10
PROVIDERS: PCP Internal Medicine; Visit Provider Anesthesiology
DX: M47.816 Spondylosis without myelopathy or radiculopathy, lumbar region (principal); M48.02 Spinal stenosis, cervical region; M15.9 Polyosteoarthritis, unspecified; L40.9 Psoriasis, unspecified
CPT/HCPCS: 99214

== ENCOUNTER → 2024-11-07 10:09 | Outpatient (BNVA) | payer MEDICARE, MEDICAID, SELFPAY | PROVIDERS: PCP Internal Medicine; Visit Provider Anesthesiology | DX: M79.7 Fibromyalgia (principal); M54.2 Cervicalgia; M15.9 Polyosteoarthritis, unspecified; M47.816 Spondylosis without myelopathy or radiculopathy, lumbar region; M48.02 Spinal stenosis, cervical region; L40.9 Psoriasis, unspecified | CPT/HCPCS: 99212 ==

== ENCOUNTER 2024-11-12 13:01 | Outpatient (AMB) | payer MEDICARE, MEDICAID, SELFPAY ==
--- NOTE | 2024-11-12 13:22 | HO.SPINEOV ---
Intake Visit Reasons: LBP Intake Note: Ms. Bowen is here today c/o low back pain. MRI done @ [facility]. Rigging Up Man Required: No Allergies dust Allergy (Mild, Uncoded 11/07/24 10:16) sneezing Assessment & Plan Assessment & Plan (1) Low back pain, unspecified: Code(s): M54.50 - Low back pain, unspecified Category: Medical Qualifiers: Back pain laterality: midline Chronicity: chronic Sciatica laterality: sciatica of right side Sciatica presence: with sciatica Qualified Code(s): M54.41 - Lumbago with sciatica, right side; G89.29 - Other chronic pain (2) Spinal stenosis, cervical region: Code(s): M48.02 - Spinal stenosis, cervical region Category: Medical Plan Dear Dr Kelly, Thank you for referring Mrs Bowen to our office today. She is a very nice 69-year-old female history of chronic low back pain for many years, getting worse over the last 6 months. She has no lower extremity symptoms. She has been taking extra-strength Tylenol as well as a muscle relaxer baclofen which seems to help. The pain is very intense when she is lying down, but also is aggravated with prolonged sitting or standing. Through the years she has tried some basic conservative treatment. Many of these things were tried years ago but this would include chiropractic and acupuncture. She also tried physical therapy with no meaningful improvement. She comes in today with an MRI showing spondylolisthesis at L3-4 with moderate to severe stenosis amongst other degenerative changes. Also complaining of neck pain at the base of her neck. No myelopathic symptoms. Cervical MRI as well showing multilevel degenerative disc disease. PMH: Reports she is prediabetic, sleep apnea, hypertension, appendectomy, myomectomy, hysterectomy, bariatric sleeve surgery in 2018, septoplasty Social hx: She does not smoke, drink use any recreational drugs Medications: Lipitor, baclofen, Zyrtec, hydralazine, irbesartan, multivitamin, CPAP, hydralazine Allergies: None Physical exam: Awake alert oriented no acute distress, slow to get up on the examining table secondary to back pain, strength in bilateral upper and lower extremities normal, reflexes diminished at the biceps triceps brachioradialis patella and Achilles. No Benítez, no clonus. Imaging review: [facility] shows multilevel degenerative disc disease with moderate central canal stenosis at multiple levels, there appears to be large anterior osteophyte overgrowth suggesting there may be auto fusion. No cord compression or cord signal change. Lumbar MRI also done [facility] in August 2023 shows multilevel degenerative disc disease, grade 1 spondylolisthesis at L3-4 with moderate to severe central canal stenosis, moderate stenosis at L4-5. There maybe a subtle spondylolisthesis at L4-5 as well. Impression: 69-year-old female presents with chronic low back pain for many many years, worse over the last 6 months, no lower extremity symptoms who has a spondylolisthesis at L3-4 with moderate to severe stenosis. I suspect this may be part of where her pain is coming from. She has tried conservative treatment to no avail. Her quality of life is suffering significantly. I am going to send her for flexion-extension x-rays to look for instability. Also, she reports her back pain getting significantly worse over the last 6 months I would like to repeat an MRI because her last 1 is almost a year and a half old. She believes she may have had an MRI done sometime in June at another facility so she is going to look into that. If it has not been done I will order a new lumbar MRI. With regard to the cervical spine in the reported stenosis, she does not have any active symptoms, and there is no overt spinal cord compression. Therefore it is nothing that we need to do surgically with that. We can just follow clinically. Thank you for allowing us to care for your patient. The total time spent with this visit with this patient was65 minutes reviewing history, physical exam, cervical and lumbar imaging review, and implementation of treatment plan or further diagnostic testing Kevyn Adams MD,PhD [facility] [place] Orders: Orders XR lumbar spine 4V min Today G89.29 - Other chronic pain, M54.41 - Lumbago with sciatica, right side Coding Level of Care Code New Pt Level 5 (65769) Diagnoses Chronic midline low back pain with right-sided sciatica M54.41; G89.29 Back pain laterality: midline Chronicity: chronic Sciatica laterality: sciatica of right side Sciatica presence: with sciatica Spinal stenosis, cervical region M48.02
--- OUTSIDE RECORDS SUMMARY | 2024-11-12 15:15 | XMS_ITS | Clinical Summary ---
Author Organization [employer] Address [address] [place] [address] Care Team Providers Care Clubhouse Manager Name Role Phone Unavailable Primary Care Provider Unavailabl e Social History Tobacco Use Types Packs/Day Years Used Date Smoking Tobacco: Never Assessed Comments Unknown Sex and Gender Information Value Date Recorded Sex Assigned at Female 11/09/2024 10:09 AM EDT Legal Sex Female 10:01 AM EDT Gender Identity Female 11/09/2024 10:09 AM EDT Sexual Orientation Straight 11/09/2024 10 :09 AM EDT Plan of Treatment Upcoming Encounters Date Type Department Care Team (Late st Contact Info) Description 12/06/2024 1:30 PM EDT Office Visit [facility] ADULT DENTAL [address] [place] [address] Juan King, DMD [address] [place] [address] Health Maintenance Due Date Last Done Comments CT Colonography 1955 Colonoscopy 1955 Colorectal Cancer Screening 1955 Depression Screening 1955 FIT DNA/Cologuard 1955 FIT 1955 FOBT 1955 SDOH Screening 1955 Sigmoidoscopy 1955 Alcohol/Substance Use Screening 1967 Tobacco Screening 1967 Hepatitis C Screening 1973 DTaP/Tdap/Td Vaccines (1 - Tdap) 1974 Mammogram 1995 Pneumococcal Vaccine: 50+ Ye ars (1 of 1 - PCV) 2005 Zoster Vaccines (1 of 2) 2005 COVID-19 Vaccine ( - 2023-2 5 season) 2024 Influenza Vaccine (#1) 2024 RSV Patients and Pa tients Aged 60 years or older (1 - 1-dose 75+ series) 2030 HIB [...] patient's age to complete this topic Meningococcal Vaccine Aged Out No jeancarlos margarita eligible based on patient's age to complete this topic RSV under 20 months Aged Out No longe r eligible based on patient's age to complete this topic Rotavirus Vaccines Aged Out No longer eligible based on patient's age to complete this topic Insurance DENTAL - HSN PARTIAL (MEDICAID)
--- OUTSIDE RECORDS SUMMARY | 2024-11-12 15:15 | XMS_ITS | Clinical Summary ---
Author Organization [facility] Address [address] [place] [address] Care Team Providers Care Multimedia Manager Name Role Phone Mika Forrester MD Primary Care Provider [phone] Social History Tobacco Use Types Packs/Day Years [...] age to complete this topic Care Teams Multimedia Manager Relationship Specialty Start Date End Date Mika Forrester MD [address] [place] [address] Dr Edd [place] PCP - General Rendering Equipment Tender 02/16/19
--- OUTSIDE RECORDS SUMMARY | 2024-11-12 15:15 | XMS_ITS | Patient Health Record ---
Author Organization [employer] [facility] Address [address] [place] [address] Care Team Providers Care Sand Shoveler Name Role Phone Geo Hager MD Primary Care Provider González berkowitz Reason For Referral No Information Medications Medication SIG (Take, Route, Frequency, Duration) Notes Start Date End Date Status Vitamin D Active hydroCHLOROthiazide 25 MG Orally Active Benicar 40 MG Orally Active Problems Problem Type SNOMED Code ICD Code Onset Dates Problem Status W/U Status Risk Notes Problem Osteoporosis (07434234) Osteoporosis (733.0) Active confirmed Problem Essential hypertension (05483222) Essential (primary) hypertension (I10) Active confirmed Problem Obesity (763042068) Obesity, unspecified (E66.9) Active confirmed Problem Sleep apnea (97965056) Sleep apnea, unspecified (G47.30) Active confirmed Problem Psoriasis (9418728) Psoriasis, unspecified (L40.9) Active confirmed Plan Of Treatment No Information Insurance Providers Payer Name Payer Address Payer Phone Subscriber Number Group Number Insured Name Patient Relationship to Insured Coverage Start Date Coverage End Date [facility] [address] [place] [phone] [id number] BRENDON ALTAMIRANO Self - patient is the insured Medical (General) History Medical History History ICD Code Essential (primary) hypertension Essential (primary) hypertension Sleep apnea, unspecified Osteoporosis Obesity, unspecified Psoriasis, unspecified Surgical History Surgery Date(Month/Year) APPENDECTOMY BREAST REDUCTION laparoscopic hysterectomy, ovaries remai n age 39 Myomectomy
== END 2024-11-12 15:30 | disposition home or self-care (01) ==
LOC: HO.HNS 13:17
PROVIDERS: PCP Internal Medicine; Referring Provider Anesthesiology; Visit Provider Physician Assistant
DX: M54.41 Lumbago with sciatica, right side (principal); G89.29 Other chronic pain; M48.02 Spinal stenosis, cervical region
CPT/HCPCS: 99205

== ENCOUNTER 2024-11-12 13:01 | Outpatient (REF) | payer MEDICARE, MEDICAID, SELFPAY ==
--- NOTE | ~2024-11-12 | XR_ITS ---
CLINICAL HISTORY: M54.41 - Lumbago with sciatica, right side --- Additional Notes or Special Instruct ions: standing, a p, lateral with flex ext views 4 views lumbar spine Comparison: None Findings: Grade 1 anterolisthesis at L4/L5 and L3/L4 without abnormal translation on the flexion-extension views. No acute fracture. Mild right-sided curvature of the lumbar spine. Multilevel facet osteoarthritis and degenerative narrowing of the lumbar interspinous process intervals. Severe L4/L5 disc narrowing. Mildly prominent anterior vertebral body osteophytosis at some of the lumbar levels. IMPRESSION: No abnormal translation on the lateral dynamic views. Multilevel lumbar spine osteoarthritis. This document has been electronically signed by: Kayla Sutton MD on 11/15/2024 13:01:18
--- OUTSIDE RECORDS SUMMARY | 2024-11-12 15:48 | XMS_ITS | Clinical Summary ---
Author Organization [employer] Address [address] [place] [address] Care Team Providers Care Tax Specialist Name Role Phone Unavailable Primary Care Provider [...] Description 12/06/2024 1:30 PM EDT Office Visit [facility] ADULT D[facility] [address] [place] [address] Juan King, DMD [address] [place] [address] Health Maintenance Due Date Last Done Comments [...]
--- OUTSIDE RECORDS SUMMARY | 2024-11-12 15:48 | XMS_ITS | Clinical Summary ---
Author Organization [facility] Address [address] [place] [address] Care Team Providers Care Closing Manager Name Role Phone Mika Forrester MD Primary Care Provider [phone] Social History Tobacco Use Types Packs/Day Years [...] age to complete this topic Care Teams Closing Manager Relationship Specialty Start Date End Date Mika Forrester MD [address] [place] [address] Dr Edd [place] PCP - General Bias Machine Operator 02/16/19
== END 2024-11-12 13:02 | disposition home or self-care (01) ==
LOC: HO.HOSX 13:01
PROVIDERS: PCP Internal Medicine; Referring Provider Anesthesiology; Visit Provider Physician Assistant
DX: M54.41 Lumbago with sciatica, right side (principal); G89.29 Other chronic pain; G47.33 Obstructive sleep apnea (adult) (pediatric); E66.9 Obesity, unspecified; Z99.89 Dependence on other enabling machines and devices
CPT/HCPCS: 72110; 99202; 99212

== ENCOUNTER → 2024-11-12 13:51 | Outpatient (BNV) | payer MEDICARE, MEDICAID, SELFPAY | PROVIDERS: PCP Internal Medicine; Referring Provider Anesthesiology; Visit Provider Radiology Diagnostic Radiology | DX: M19.09 Primary osteoarthritis, other specified site (principal) | CPT/HCPCS: 72110 ==

== ENCOUNTER 2024-11-12 16:06 | Outpatient (AMB) | payer MEDICARE, MEDICAID, SELFPAY ==
--- NOTE | 2024-11-12 16:17 | MHC.OFFVIS ---
Vital Signs 11/12/24 16:18 Height 5 ft 8.5 in Weight 249 lb 1.957 oz BMI 37.3 BP 120/72 Blood Pressure Location Lt brachial Pulse 74 Pulse Source Pulse Oximeter Pulse Oximetry (%) 95 Oxygen Delivery Method Room Air Intake Visit Reasons: Obstructive sleep apnea Intake Note: pt is here for follow up of ZURI and would like a new mask, since she had her nasal surgery she is struggling with cpap usage, also needs a note for her to stop working at [employer]. Grounds Restoration Specialist Required: No Allergies dust Allergy (Mild, Uncoded 11/12/24 16:42) sneezing Medication List - Last Reconciled 11/12/24 by Annel Cam MD atorvastatin 20 mg PO DAILY baclofen 10 mg PO TID 30 days cetirizine (Zyrtec) 10 mg PO DAILY PRN clobetasol 0.05% 1 appl topical BID epinephrine (EpiPen) 0.3 mg (0.3 mL) IM Q20M PRN hydralazine 25 mg PO BID irbesartan 1 tab PO DAILY naqpvmtmuora-zrd-fmip-FA-vit K 45 mg iron- 800 mcg-120 mcg (Bariatric Multivitamins) 1 cap PO DAILY@0600 oxygen-air delivery systems As directed, pt is on c-pap not oxygen Do you need a note to return to daycare/school/sports/work: No HPI HPI Obstructive sleep apnea: Details: THIS 69 YEARS OLD FEMALE IS A CASE OF MODERATE OBESITY AND CHRONIC OBSTRUCTIVE SLEEP APNEA. SHE COMES FOR FOLLOW-UP AFTER ALMOST 1 YEAR. IN THE INTERIM. SHE HAS LOST ABOUT 7 LB OF WEIGHT, AND SHE HAS HAD SURGERY FOR RESECTION OF THE NASAL TURBINATES. AFTER THIS SHE HAS BEEN USING THE CPAP MORE REGULARLY WITH NASAL PILLOWS, BUT STILL HAS LOT OF QUESTIONS. SHE HAS CHRONIC BACK PAIN AND NECK PAIN, AND ON ACCOUNT OF THAT SHE WOULD NOT BE ABLE TO CONTINUE WORKING IN THE [employer] . SHE ALSO HAS CHRONIC FIBROMYALGIA. [facility] Medical History Nasal turbinate hypertrophy Allergic rhinitis ZURI on CPAP Obesity (BMI 30.0-34.9) Spinal stenosis Hyperlipidemia Psoriasis Seasonal allergies Neck arthritis Dysfunction of right rotator cuff Hypertension Low vitamin D level Fibromyalgia Surgical History Hx of nasal septoplasty History of repair of hiatal hernia Status post laparoscopic sleeve gastrectomy History of cataract surgery History of sinus surgery History of partial hysterectomy History of myomectomy History of colonoscopy Hx of breast reduction, elective History of appendectomy Family History Father Unknown family medical history Mother Alive and well Diabetes mellitus Brother Alive and well Brother Alive and well Sister Alive and well Social History Household Members Other:: lives alone Housing: Apartment Alcohol intake: never Patient Tobacco Use Status: Never used Tobacco e-Cigarette/Vaping Use: Never Used service: No Current occupational status: retired 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 [employer] Current occupational exposures/hazards: No Cognitive needs: No Hearing needs: Yes Vision needs: Yes Review of Systems Const All systems reviewed & are unremarkable except as noted in HPI and below Denies snoring Eyes Reports no additional complaints ENT Reports nasal congestion (FEELS THAT HER NOSE IS CONGESTED DURING THE NIGHT) Card Denies chest pain, Denies irregular heart rhythm and Denies leg edema Resp Reports cough, Denies snoring and Denies wheezing GI Reports no additional complaints Reports no additional complaints Musc Reports back pain (Mild chronic) and Reports myalgias (Mild chronic) Skin/Breast Reports system reviewed and no additional complaints, except as documented Neuro Reports no additional complaints Psych Reports no additional complaints Aller/Immun Denies wheezing Physical Exam Vital Signs: Last Vital Signs Pulse 74 11/12/24 16:18 BP 120/72 11/12/24 16:18 Pulse Ox 95 11/12/24 16:18 Oxygen Delivery Method Room Air 11/12/24 16:18 BMI result Body Mass Index 37.3 Const General: comfortable, no acute distress, alert and awake Orientation/consciousness: patient oriented x3 HEENT Head: Yes normal to inspection General nose exam: No nasal polyps present, No nasal discharge present and Abnormal mucous membranes and turbinates present (CHRONIC HYPERTROPHY OF THE NASAL TURBINATES S/P SURG. RESECTION.) Face and sinus: Yes sinuses nontender Mouth: oropharynx normal Throat: No posterior oropharynx normal (Moderately crowded, Mallampati class 3) Eyes General: appearance normal, both eyes and all related structures Neck Neck: Yes normal visual inspection, Yes no lymphadenopathy, Yes trachea midline and Yes no JVD Thyroid: Thyroid normal Chest Chest palpation & inspection: normal inspection of the chest, normal palpation of entire chest wall and no tenderness Resp Effort & Inspection: normal respiratory effort Auscultation: clear to auscultation bilaterally, no rales and no wheezes Cardio Palpation: normal PMI Rate: regular rate Rhythm: regular rhythm Heart sounds: no gallops and no murmurs GI Palpation (GI): Soft to palpation, nontender, No hepatosplenomegaly present and no masses Auscultation: normal bowel sounds Back/Spine/Pelvis Thoracic/Lumbar Spine: thoracic and lumbar spine normal to inspection Skin General skin exam: no rashes or lesions noted Neuro General: patient oriented x3 and no focal motor deficits Cranial nerves: Yes CN's II-XII intact bilaterally Extrem General: Yes normal to inspection, Yes no clubbing, cyanosis or edema and Yes no calf tenderness Psych Appearance: grossly normal and well kempt Speech and movement: Normal speech and movement present Results Reviewed Results Reviewed: COMPLIANCE REPORT FOR THE LAST 30 NIGHTS IS REVIEWED. PATIENT HAS USED 27-30 NIGHTS, 90%. AVERAGE USE IT PER NIGHT 5 HOURS 44 MINUTES. .THERE IS NO SIGNIFICANT AIR LEAK RESIDUAL AHI 3.6. Assessment & Plan Assessment & Plan (1) Obesity (BMI 30.0-34.9): Comment: CASE OF GROSS OBESITY , HAS HAD GASTRIC SURGERY IN THE PAST , REGAINED WEIGHT, BUT NOW SHE IS MORE SERIOUS AND WATCHES HER DIET. SHE HAS LOST ABOUT 7 LB OF WEIGHT IN THE LAST FEW MONTHS. Code(s): E66.9 - Obesity, unspecified Category: Medical Plan: EXPLAINED THAT SHE NEEDS TO CONTINUE LOSING WEIGHT. FOLLOW-UP WITH PRIMARY CARE PHYSICIAN MORE CLOSELY. (2) ZURI on CPAP: Comment: SHE HAS HISTORY OF OBSTRUCTIVE SLEEP APNEA FOR THE PAST MANY YEARS. HER COMPLIANCE HAS ALWAYS BEEN SUBOPTIMAL. NOW SINCE SHE HAS HAD NASAL TURBINECTOMY, SHE CAN USE NASAL PILLOWS MORE EASILY. COMPLIANCE HAS DEFINITELY IMPROVED. Code(s): G47.33 - Obstructive sleep apnea (adult) (pediatric); Z99.89 - Dependence on other enabling machines and devices Category: Medical Plan: ADVISE THAT SHE SHOULD CONTINUE TO USE NASAL PILLOWS WITH AUTO PAP SETTING OF 5-15 CM. SHE MAY USE NASAL SPRAY 1 OR 2. PUTS IN BOTH NOSTRILS PRN SHE INQUIRED ABOUT USING ORAL APPLIANCE, AND I EXPLAINED THAT SHE HAS TO SEE A DENTIST WHO SPECIALIZES IN PREPARING ISAIAS DENTAL DEVICE. I EXPLAINED THE MECHANISM WITH WHICH THE ISAIAS DENTAL DEVICE WERE WORK. AND AFTER LISTENING TO THE WHOLE EXPLANATION SHE SAY IS SHE WOULD RATHER STAY WITH NASAL CPAP. Coding Level of Care Code Est Pt Level 3 (03991) Diagnoses Obesity (BMI 30.0-34.9) E66.9 ZURI on CPAP G47.33; Z99.89
[2024-11-12 16:18] VITALS: BP 120/72; PULSE 74; O2SAT 95; BMI 37.3
--- OUTSIDE RECORDS SUMMARY | 2024-11-12 18:20 | XMS_ITS | Data Portability ---
Author Organization [place] - [facility], Allergy Address [address] [place] [address] Care Team Providers Care Digital Product Specialist Name Role Phone JOSE AUGUSTINE Primary Care Provider [phone] Assessment Encounter Date Assessment Date Assessment LastModified [...] for long-term benefit. All questions were answered. [email or web address] Not available 12/28/2023 10:07:32 03/09/2024 03/09/2024 Persistent [...] submucous resection inferior turbinate (SURG) 2023 024 9 Not available 4 08:48:[address], orbits + paranasal sinuses, w/o contrast 2023 024 [email or web address] [facility] [place], [address], [address], [place], [address], 4 16:39:13 Medication Orders None recorded. Patient TargetsNo targets recorded. Patient InstructionsNo instructions recorded. Reason for Referral None Reported. Results Created Date Observation Date Name Description Value Unit Range Abnormal Flag Note LastModifiedBy Organization Detail LastModifiedTime 03/08/2003/06/2024 CT, sinus es, w/o contr ast No observ ation record ed. [email or web address] [facility] [place] [address], [place], [address], 03/09/2024 09:01:57 Result Notes None recorded. Problems Name Problem SNOMED Code Status Onset Date Resolution Date Notes Provider Name and Address Organization Details Recorded Time Hypertrop hy of nasal turbinate s 89938724 Active 2018 Hypertrop hy of nasal turbinate s; Note: Date Diagnosed : 11/03/2018 2:33 PM (J34.3) Not Available [facility] 4 02:23:06 Essential hypertens ion 56678829 Active 2018 Essential (primary) hypertens ion; Note: Date Diagnosed : 11/03/2018 2:33 PM (I10) Not Available [facility] 4 02:22:30 Nasal congestio n 73097658 Active 2018 Nasal congestio n; Note: Date Diagnosed : 11/03/2018 2:33 PM (R09.81) Not Available [facility] 4 02:22:54 Obstructi ve sleep apnea syndrome 51985159 Active 2018 Obstructi ve sleep apnea (adult) (pediatri c); Note: Date Diagnosed : 11/03/2018 2:35 PM (G47.33) Not Available [facility] 4 02:23:00 Pain of left temporoma ndibular joint 55466375391 413548 Active 2021 Arthralgi a of left temporoma ndibular joint; Note: Date Diagnosed : 2 11:35 AM (M26.622) Not Available [facility] 4 02:23:00 Headache 80111549 Active 2018 Headache, unspecifi ed; Note: Changed from R51 to R51.9 (12/03/2020 4:50 PM) , Date Diagnosed : 02/02/2019 12:11 PM (R51) Not Available [facility] 4 02:22:33 Otalgia of left ear 3875171397 Active 2021 Otalgia, left ear; Note: Date Diagnosed : 2 11:35 AM (H92.02) Not Available [facility] 4 02:23:04 Chronic rhinitis 37249320 Active 2018 Chronic rhinitis; Note: Date Diagnosed : 11/03/2018 2:33 PM (J31.0) Not Available [facility] 4 02:22:48 Sensorine ural hearing loss of bilateral ears 822138846 Active 2020 Sensorine ural hearing loss, bilateral ; Note: Date Diagnosed : 12/03/2020 4:33 PM (H90.3) Not Available [facility] 4 02:22:41 Referred otalgia 62200446 Active 2021 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 Procedures Surgical History Date Name Laterality Status Provider Name and Address Organization Details Recorded Time 5 Resect inferior turbinate completed DEYVI JESUS MD [address] [facility] [address], [place], [address], [place] - [facility] 08/14/2024 09:45:39 4 JMSNasal/Sinus Endoscopy completed DEYVI JESUS MD [address] [facility] [address], [place], [address], [place] [facility] 03/09/2024 08:43:18 4 JMSNasal/Sinus Endoscopy completed ELIZABETH GANDHI PA-C [address] [facility],[address], [address], [facility] - [facility] 12/28/2023 10:05:50 Imaging Results Imaging Date Name Status LastModified by Organiz ation Details LastModified Time 03/06/2024 CT, sinuses, w/o contrast [place] [id number] [facility] [place] [address] [facility] [address], [place], [address], 03/09/2024 09:01:57 Procedure Notes None recorded. Medical Equipment None Reported. Allergies Allergen ID Allergen Name Allergen Category Reaction Reaction Severity Criticality Documentation Date Start Date Code Code System Note Provider Name and Address Organization Details Recorded Time 399552 house dust allergeni c extract environme nt,medica tion Not available Not available Not available 12/28/2023 31609 9 RxNorm Robert crooks [place] [facility] 4 09:12:48 434277 ethinyl estradiol / levonorge strel medicatio n Not available Not available Not available 12/28/2023 78898 8 RxNorm Robert crooks [place] [facility] 4 09:13:05 Medications Name Sig Start Date Stop Date Status Note LastModified by Organization Details LastModified Time losartan 50 mg tablet 08/01 completed Medicati on ID: [id number] D uration Value: 30 Brand Name: losartan [...] mg tablet 08/24 completed Medicati on ID: [id number] D uration Value: 30 Brand Name: atorvast [...] both nostrils 03/07 completed Medicati on ID: [id number] P johnna d By Name: Deyvi M. [...] Updated DateTime 08/24/2024 175.26 cm 37.2 kg/m2 977797.28 g Samantha Jackman [facility] 08/24/2024 12:49:18 Social History Question Answer Notes LastModified by Organizat ion Details LastModified Time Tobacco Smoking Status Never Smoker Robert crooks [facility] 12/28/2023 09:13:55 What Is Your Level Of Alcohol Consumption? None [email or web address] Information not available 12/28/2023 Do You Use Any Illicit Or Recreational Drugs? No [email or web address] Information not available 12/28/2023 Do You Or Have You Ever Used Any Other Forms Of Tobacco Or Nicotine? No [email or web address] Information not available 12/28/2023 Sex: Unknown Functional [...] Note [id number] DEYVI SHAW MD [facility] [address] [address] 12/28/2023 08:25:56 12/28/2023 09:57:35 Chronic rhinitis 09641620 J31.0 Hypertroph y of nasal turbinates 97762667 J34.3 Nasal congestion 8077914 0 R09.81 Obstructiv e sleep apnea syndrome 83222728 G47.33 [id number] DEYVI SHAW MD [facility] [address] [address] 03/09/2024 08:02:23 03/09/2024 08:47:43 Hypertrophy of nasal turbinates 65067938 J34.3 Discussed turbinate reduction. Patient has hypertroph [...] by patient despite open airway Essential hypertension 23427964 I10 Sleep apnea 55724753 G47 .30 [id number] DEYVI SHAW MD [facility] [address] [address] 08/24/2024 12:20:08 08/24/2024 13:27:53 Hypertrophy of nasal turbinates 60729926 J34.3 Nasal congestion 1561026 0 R09.81 Postoperative visit 1836 28290 Z48.89 Health Concerns Section Related Observation LastModified by Organization Detai ls LastModified Time None Recorded Concern Status LastModified by Organization Details LastModified Time None Recorded Advance Directives Directive None Recorded Payers Encounter Date Sequence Insurance Name Policy Number Policy Galdamez Covered Member ID Galdamez Member ID Guarantor Name 12/28/2023 3 [place] [facility] Quinten Bowen [id number] Quinten Bowen 12/28/2023 1 [place] [employer] [employer] Quinten Bowen [id number] Quinten Bowen 03/09/2024 2 [facility] [place] - PLAN 1 (MEDICARE SUPPLEMENT) [id number] Quinten Bowen [id number] Quinten Bowen 03/09/2024 1 [place] [employer] [employer] Quinten Bowen [id number] Quinten Bowen 08/24/2024 2 [facility] [place] - PLAN 1 (MEDICARE SUPPLEMENT) [id number] 01 Quinten Bowen [id number] Quinten Cotter Jessi 08/24/2024 1 MEDICARE B-[place]: [facility] Quinten Bowen [id number] Quinten Cotter Bowen Notes Date Note Type [...] little benefit from this. DEYVI JESUS MD [address] [place] [address],[address], [address], [facility] - [facility] 12/28/2023 12:45:11 03/09/2024 text/html Patient with longstanding history of nasal congestion secondary to allergic rhinitis, use of antihypertensive agents and obstructive sleep apnea. CT scan shows no evidence of sinus disease. This is similar to CT scan in 2020. She has tried multiple topical sprays including antihistamines, nasal steroids and Atrovent without improvement. DEYVI JESUS MD [address] [facility],[address], [address], [place] - [facility] 03/09/2024 08:45:04 08/24/2024 text/html 69yo female pres ents following inferior turbinate surgery on 07/24/[address] Jesus.She has been following postoperative instructions. Mild nasal congestion bilaterally. DEYVI JESUS MD 100 [facility],[address], [address], [place] [facility] 08/26/2024 18:57:50 OBGyn Episode No OBEpisode recorded.
--- OUTSIDE RECORDS SUMMARY | 2024-11-12 18:20 | XMS_ITS | Clinical Summary ---
Author Organization [facility] ity Address [address] [place] [address] Care Team Providers Care Deckhand Tuna Boat Name Role Phone Mika Forrester MD Primary Care Provider [phone] Social History Tobacco Use Types Packs/Day Years [...] age to complete this topic Care Teams Deckhand Tuna Boat Relationship Specialty Start Date End Date Mika Forrester MD [address] [place] [address] Dr Edd [place] PCP - General Maintenance Person 02/16/19
--- OUTSIDE RECORDS SUMMARY | 2024-11-12 18:20 | XMS_ITS | Clinical Summary ---
Author Organization [employer] Address [address] [facility] [address] [place] [address] Care Team Providers Care Child Care Centre Manager Name Role Phone Unavailable Primary Care [...] Description 12/06/2024 1:30 PM EDT Office Visit [facility] [address] [place] [address] Juan King, DMD [address] [place] [address] Health Maintenance Due Date Last Done Comments [...]
== END 2024-11-12 16:44 | disposition home or self-care (01) ==
LOC: HO.HPS 16:06
PROVIDERS: PCP Internal Medicine; Visit Provider Internal Medicine
DX: E66.9 Obesity, unspecified (principal); G47.33 Obstructive sleep apnea (adult) (pediatric); Z99.89 Dependence on other enabling machines and devices
CPT/HCPCS: 99213

== ENCOUNTER 2024-11-28 11:14 | Outpatient (REF) | payer MEDICARE, MEDICAID, SELFPAY ==
--- OUTSIDE RECORDS SUMMARY | 2024-11-28 12:53 | XMS_ITS | Patient Health Record ---
Author Organization [employer] [facility] Address [address] [facility] [address] [place] [address] Care Team Providers Care Taper Machine Name Role Phone Geo Hager MD Primary Care Provider González berkowitz Reason For Referral No Information Medications Medication SIG (Take, Route, Frequency, Duration) Notes Start Date End Date Status Vitamin D Active hydroCHLOROthiazide 25 MG Orally Active Benicar 40 MG Orally Active Problems Problem Type SNOMED Code ICD Code Onset Dates Problem Status W/U Status Risk Notes Problem Osteoporosis (89313281) Osteoporosis (733.0) Active confirmed Problem Essential hypertension (90353423) Essential (primary) hypertension (I10) Active confirmed Problem Obesity (315311255) Obesity, unspecified (E66.9) Active confirmed Problem Sleep apnea (22840900) Sleep apnea, unspecified (G47.30) Active confirmed Problem Psoriasis (6366478) Psoriasis, unspecified (L40.9) Active confirmed Plan Of Treatment No Information Insurance Providers Payer Name Payer Address Payer Phone Subscriber Number Group Number Insured Name Patient Relationship to Insured Coverage Start Date Coverage End Date [facility] [address] [place] [address] [id number] BRENDON ALTAMIRANO Self - patient is the insured Medical (General) History Medical History History ICD Code Essential (primary) hypertension Essential (primary) hypertension Sleep apnea, unspecified Osteoporosis Obesity, unspecified Psoriasis, unspecified Surgical History Surgery Date(Month/Year) APPENDECTOMY BREAST REDUCTION laparoscopic hysterectomy, ovaries remai n age 39 Myomectomy
--- OUTSIDE RECORDS SUMMARY | 2024-11-28 12:53 | XMS_ITS | Clinical Summary ---
Author Organization [facility] ity Address [address] [place] [address] Care Team Providers Care Fur Dry Cleaner Name Role Phone Mika Forrester MD Primary Care Provider [phone] Social History Tobacco Use Types Packs/Day Years [...] age to complete this topic Care Teams Fur Dry Cleaner Relationship Specialty Start Date End Date Mika Forrester MD [address] [place] [address] Dr Edd [place] PCP - General Mobile Heavy Equipment Mechanic 02/16/19
--- OUTSIDE RECORDS SUMMARY | 2024-11-28 12:53 | XMS_ITS | Data Portability ---
Author Organization [place] - [facility], Allergy Address [address] [place] [address] Care Team Providers Care Hydropulper Operator Name Role Phone JOSE AUGUSTINE Primary Care Provider [phone] Assessment Encounter Date Assessment Date Assessment LastModified [...] for long-term benefit. All questions were answered. [email or web address] Not available 12/28/2023 10:07:32 03/09/2024 03/09/2024 Persistent [...] + paranasal sinuses, w/o contrast 2023 024 [email or web address] [facility] [place], [address], [address], [place], [address], 4 16:39:13 Medication Orders None recorded. Patient TargetsNo targets recorded. Patient InstructionsNo instructions recorded. Reason for Referral None Reported. Results Created Date Observation Date Name Description Value Unit Range Abnormal Flag Note LastModifiedBy Organization Detail LastModifiedTime 03/08/2003/06/2024 CT, sinus es, w/o contr ast No observ ation record ed. [email or web address] [facility] [place] [address], [place], [address], 03/09/2024 09:01:57 Result Notes None recorded. Problems Name Problem SNOMED Code Status Onset Date Resolution Date Notes Provider Name and Address Organization Details Recorded Time Hypertrop hy of nasal turbinate s 28284789 Active 2018 Hypertrop hy of nasal turbinate s; Note: Date Diagnosed : 11/03/2018 2:33 PM (J34.3) Not Available [facility] 4 02:23:06 Essential hypertens ion 00873852 Active 2018 Essential (primary) hypertens ion; Note: Date Diagnosed : 11/03/2018 2:33 PM (I10) Not Available [facility] 4 02:22:30 Nasal congestio n 65544201 Active 2018 Nasal congestio n; Note: Date Diagnosed : 11/03/2018 2:33 PM (R09.81) Not Available [facility] 4 02:22:54 Obstructi ve sleep apnea syndrome 23425738 Active 2018 Obstructi ve sleep apnea (adult) (pediatri c); Note: Date Diagnosed : 11/03/2018 2:35 PM (G47.33) Not Available [facility] 4 02:23:00 Pain of left temporoma ndibular joint 11607346489 072395 Active 2021 Arthralgi a of left temporoma ndibular joint; Note: Date Diagnosed : 2 11:35 AM (M26.622) Not Available [facility] 4 02:23:00 Headache 51226238 Active 2018 Headache, unspecifi ed; Note: Changed from R51 to R51.9 (12/03/2020 4:50 PM) , Date Diagnosed : 02/02/2019 12:11 PM (R51) Not Available [facility] 4 02:22:33 Otalgia of left ear 1449029912 Active 2021 Otalgia, left ear; Note: Date Diagnosed : 2 11:35 AM (H92.02) Not Available [facility] 4 02:23:04 Chronic rhinitis 16916511 Active 2018 Chronic rhinitis; Note: Date Diagnosed : 11/03/2018 2:33 PM (J31.0) Not Available [facility] 4 02:22:48 Sensorine ural hearing loss of bilateral ears 418034977 Active 2020 Sensorine ural hearing loss, bilateral ; Note: Date Diagnosed : 12/03/2020 4:33 PM (H90.3) Not Available [facility] 4 02:22:41 Referred otalgia 78093240 Active 2021 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 Procedures Surgical History Date Name Laterality Status Provider Name and Address Organization Details Recorded Time 5 Resect inferior turbinate completed DEYVI JESUS MD 100 [facility] [address], [place], [address], [place] - [facility] 08/14/2024 09:45:39 4 JMSNasal/Sinus Endoscopy completed DEYVI JESUS MD [address] [facility] [address], [place], [address], [place] [facility] 03/09/2024 08:43:18 4 JMSNasal/Sinus Endoscopy completed ELIZABETH GANDHI PA-C [address] [facility],[address], [address], [facility] - [facility] 12/28/2023 10:05:50 Imaging Results Imaging Date Name Status LastModified by Organiz ation Details LastModified Time 03/06/2024 CT, sinuses, w/o contrast [email or web address] [id number] [facility] [place] [address] [facility] [address], [place], [address], 03/09/2024 09:01:57 Procedure Notes None recorded. Medical Equipment None Reported. Allergies Allergen ID Allergen Name Allergen Category Reaction Reaction Severity Criticality Documentation Date Start Date Code Code System Note Provider Name and Address Organization Details Recorded Time 694007 house dust allergeni c extract environme nt,medica tion Not available Not available Not available 12/28/2023 93810 9 RxNorm Robert croosk [place] [facility] 4 09:12:48 013195 ethinyl estradiol / levonorge strel medicatio n Not available Not available Not available 12/28/2023 40154 8 RxNorm Robert crooks [place] [facility] 4 09:13:05 Medications Name Sig Start Date Stop Date Status Note LastModified by Organization Details LastModified Time losartan 50 mg tablet 08/01 completed Medicati on ID: [id number] D uration Value: 30 Brand Name: losartan [...] mg tablet 08/24 completed Medicati on ID: [id number] D uration Value: 30 Brand Name: atorvast [...] both nostrils 03/07 completed Medicati on ID: [id number] P johnna d By Name: Deyvi M. [...] Updated DateTime 08/24/2024 175.26 cm 37.2 kg/m2 201046.28 g Samantha Jackman [facility] 08/24/2024 12:49:18 Social History Question Answer Notes LastModified by Organizat ion Details LastModified Time Tobacco Smoking Status Never Smoker Robert crooks [facility] 12/28/2023 09:13:55 What Is Your Level Of Alcohol Consumption? None [email or web address] Information not available 12/28/2023 Do You Use Any Illicit Or Recreational Drugs? No [email or web address] Information not available 12/28/2023 Do You Or Have You Ever Used Any Other Forms Of Tobacco Or Nicotine? No [email or web address] Information not available 12/28/2023 Sex: Unknown Functional Status None recorded. Mental Status None recorded. Family History Nothing Reported. Medical History Condition Response Hypertension Y High Cholesterol Y Gynecological HistoryNo gynecological history recorded. Obstetrics History GPAL:G 0 P 0 0 0 0 Past Encounters Encounter ID Performer Location Encounter Start Date Encounter Closed Date Diagnosis/Indication Diagnosis SNOMED-CT Code Diagnosis ICD10 Code Diagnosis Note [id number] ELIZABETH GANDHI PA-C [facility] [address] [address] 12/28/2023 08:25:56 12/28/2023 09:57:35 Chronic rhinitis 47274097 J31.0 Hypertroph y of nasal turbinates 87975683 J34.3 Nasal congestion 6161185 0 R09.81 Obstructiv e sleep apnea syndrome 79336195 G47.33 [id number] DEYVI SHAW MD [facility] [address] [address] 03/09/2024 08:02:23 03/09/2024 08:47:43 Hypertrophy of nasal turbinates 92564173 J34.3 Discussed turbinate reduction. Patient has hypertroph [...] by patient despite open airway Essential hypertension 27181213 I10 Sleep apnea 08133038 G47 .30 [id number] MAYRA BARDALES PA-C [facility] [address] [address] 08/24/2024 12:20:08 08/24/2024 13:27:53 Hypertrophy of nasal turbinates 01835909 J34.3 Nasal congestion 2409158 0 R09.81 Postoperative visit 1836 79625 Z48.89 Health Concerns Section Related Observation LastModified by Organization Detai ls LastModified Time None Recorded Concern Status LastModified by Organization Details LastModified Time None Recorded Advance Directives Directive None Recorded Payers Encounter Date Sequence Insurance Name Policy Number Policy Galdamez Covered Member ID Galdamez Member ID Guarantor Name 12/28/2023 3 [place] [facility] Quinten Bowen [id number] Quinten Bowen 12/28/2023 1 [place] [employer] Quinten Bowen [id number] Quinten Bowen 03/09/2024 2 [facility] [place] - PLAN 1 (MEDICARE SUPPLEMENT) [id number] Quinten Bowen [id number] Quinten Bowen 03/09/2024 1 [place] [employer] Quinten Bowen [id number] Quinten Bowen 08/24/2024 2 [facility] - PLAN 1 (MEDICARE SUPPLEMENT) [id number] 01 Quinten Bowen [id number] Quinten Cotter Jessi 08/24/2024 1 MED[place] [facility] Quinten Bowen [id number] Quinten Patelnchard Notes Date Note Type Note Provider Name [...] little benefit from this. DEYVI JESUS MD [address], [address], [facility] - [facility] 12/28/2023 12:45:11 03/09/2024 text/html Patient with longstanding history of nasal congestion secondary to allergic rhinitis, use of antihypertensive agents and obstructive sleep apnea. CT scan shows no evidence of sinus disease. This is similar to CT scan in 2020. She has tried multiple topical sprays including antihistamines, nasal steroids and Atrovent without improvement. DEYVI JESUS MD [address] [facility],[address], [address], [place] - [facility] 03/09/2024 08:45:04 08/24/2024 text/html 69yo female pres ents following inferior turbinate surgery on 07/24/[address] Jesus.She has been following postoperative instructions. Mild nasal congestion bilaterally. DEYVI JESUS MD [address] [facility],[address], [address], [place] - [facility] 08/26/2024 18:57:50 OBGyn Episode No OBEpisode recorded.
--- OUTSIDE RECORDS SUMMARY | 2024-11-28 12:53 | XMS_ITS | Clinical Summary ---
Author Organization [employer] Address [address] [facility] [address] [place] [address] Care Team Providers Care Steward/Stewardess Economy Class Name Role Phone Unavailable Primary Care Provider [...] Description 12/06/2024 1:30 PM EDT Office Visit [facility] [address] [place] [address] Juan King, DMD [address] [place] [address] Health Maintenance Due Date Last Done Comments [...] this topic Meningococcal Vaccine Aged Out No jeanacrlos margarita eligible based on patient's age to complete this topic RSV under 20 months Aged Out No longe r eligible based on patient's age to complete this topic Rotavirus Vaccines Aged Out No longer eligible based on patient's age to complete this topic Insurance DENTAL - HSN PARTIAL (MEDICAID)
[2024-11-28 13:00] LABS: Cholesterol 161 mg/dL (<200); HDL Cholesterol 51 mg/dL (>40); LDL Cholesterol Calculated 96 mg/dL (<100); Triglycerides 72 mg/dL (<150)
[2024-12-02 01:48] LABS: Vitamin A 39 mcg/dL (38-98)
[2024-12-05 16:47] LABS: Vitamin B1 20 nmol/L (8-30)
== END 2024-11-28 11:15 | disposition home or self-care (01) ==
LOC: HO.LAB 11:14
PROVIDERS: PCP Internal Medicine; Visit Provider Physician Assistant Surgical
DX: Z98.84 Bariatric surgery status (principal); M79.7 Fibromyalgia; E50.9 Vitamin A deficiency, unspecified; I10 Essential (primary) hypertension
CPT/HCPCS: 36415; 80061; 84425; 84590

== ENCOUNTER 2025-02-11 12:12 | Emergency (ER) | payer MEDICARE, OTHER, MEDICAID, SELFPAY ==
--- NOTE | ~2025-02-11 | CT_ITS ---
EXAMINATION: CT HEAD WITHOUT CONTRAST CLINICAL INFORMATION: Hypertension, headache COMPARISON: Sinus CT May 16, 2023, head CT November 19, 2014 TECHNIQUE: Contiguous axial imaging was performed from the skull base to vertex without intravenous administration of contrast. This CT examination was performed using dose optimization techniques as appropriate, variously including the following: *Automated exposure control *Adjustment of mA and/or kV according to patient size (this includes techniques or standardized protocols for targeted exams where dose is matched to indication/reason for exam; i.e. extremities or head) *Use of iterative reconstruction technique DLP: 715 mGY*cm FINDINGS: There is no acute ischemic change. Patchy periventricular and deep white matter hypodensities of increased since the prior examination. There is no intracranial hemorrhage. There is no mass-effect or midline shift. Basal cisterns and ventricles are within normal limits for age/cerebral volume. Orbits are symmetrical and unremarkable. Paranasal sinuses and mastoid air cells are pneumatized. There are no bony abnormalities. CT/CT head/brain wo IV con IMPRESSION: No acute intracranial abnormality. Chronic small vessel ischemic changes. Electronically signed by: Froy Alvarez MD 02/11/2025 01:28 PM EDT
[2025-02-11 12:32] VITALS: BP 162/101; PULSE 63; RESP 16; TEMP 36.4; O2SAT 98; BMI 25.8
--- NOTE | 2025-02-11 12:47 | ED.GENADULT ---
HPI - General Adult General Chief complaint: General Medical Stated complaint: High BP, 170/104 Time Seen by Provider: 02/11/25 16:32 Source: patient Mode of arrival: ambulatory Limitations: no limitations History of Present Illness ED Provider: Naima Mancuso PA-C HPI narrative: Patient is a 69 year old female with past medical history of HTN, ZURI on CPAP, fibromyalgia, psoriasis, osteoarthritis, spinal stenosis, and intestinal malabsorption s/p gastrectomy presents to the ER on 02/11 with chief complaint of hypertension. She was sent to this ER from her dentist's appointment this morning, with blood pressure ranges there from 154-175 systolic and 100-104 diastolic. She is on irbesartan and hydralazine, which she has taken daily without issue. She reports an associated left sided non-pulsating headache since this morning, constant in nature, which she thought was due to poor sleep last night and decreased fluid intake than normal today. She denies dizziness, vision changes, chest pain, shortness of breath, or any other symptoms. Relieving factors: none Exacerbating factors: none Treatments prior to arrival: none Related Data Home Medications ?Medication ?Instructions ?Recorded ?Confirmed iieponje-uapeowys-dhcr 45 mg-folic 1 cap PO DAILY@0600 06/02/20 11/12/24 acid 800 mcg-vit K 120 mcg capsule (Bariatric Multivitamins) irbesartan 150 mg tablet 1 tab PO DAILY 08/25/20 11/12/24 oxygen-air delivery systems ##1 12/01/20 11/12/24 atorvastatin 20 mg tablet 20 mg PO DAILY 06/08/21 11/12/24 hydralazine 25 mg tablet 25 mg PO BID 07/09/22 11/12/24 clobetasol 0.05 % topical ointment 1 appl topical BID 05/23/23 11/12/24 Previous Rx's ?Medication ?Instructions ?Recorded cetirizine 10 mg tablet (Zyrtec) 10 mg PO DAILY PRN allergy 06/10/22 symptoms #30 tabs epinephrine 0.3 mg/0.3 mL 0.3 mg (0.3 mL) IM Q20M PRN 06/10/22 injection, auto-injector (EpiPen) anaphylaxis #2 ea baclofen 10 mg tablet 10 mg PO TID 30 days #90 tabs 11/07/24 furosemide 20 mg tablet 20 mg PO DAILY #90 tabs 12/07/24 Allergies Allergy/AdvReac Type Severity Reaction Status Date / Time dust Allergy Mild sneezing Uncoded 02/11/25 12:32 Review of Systems Constitutional: Constitutional: Reports no additional constitutional complaints, Denies chills, Denies fever(s), Reports headache(s) (left sided) and Denies night sweats Eyes: Eyes: Reports no additional eye complaints, Denies blurry vision, Denies change in vision, Denies diplopia, Denies eye discharge, Denies loss of vision and Denies eye pain ENT: Denies dizziness and Reports headache(s) (left sided) Cardiovascular: Cardiovascular: Reports no additional cardiovascular complaints, Denies chest pain, Denies lightheadedness, Denies Loss of Consciousness and Denies dyspnea Respiratory: Respiratory: Reports no additional respiratory complaints and Denies dyspnea Gastrointestinal: Gastrointestinal: Reports no additional gastrointestinal complaints, Denies abdominal pain, Denies melena, Denies hematochezia, Denies change in bowel habits and Denies change in stool character Genitourinary: Genitourinary: Denies hematuria, Denies urinary frequency, Denies dysuria, Denies urinary incontinence, Denies urinary hesitancy and Denies urinary urgency Musculoskeletal: Musculoskeletal: Reports no additional musculoskeletal complaints, Denies numbness and Denies tingling Neurologic: Denies dizziness, Reports headache(s) (left sided), Denies loss of vision, Denies numbness and Denies tingling Psychiatric: Psychiatric: Reports no additional psychiatric complaints Endocrine: Endocrine: Reports no additional endocrine complaints Hematologic/Lymphatic: Hematologic/Lymphatic: Reports no additional hematologic/lymphatic complaints Allergic/Immunologic: Allergic/Immunologic: Reports no additional allergic/immunologic complaints [facility] Past Medical History Attestation statement: The following information was validated with the patient. Source: old records reviewed and nursing notes reviewed Medical History Nasal turbinate hypertrophy Allergic rhinitis ZURI on CPAP Obesity (BMI 30.0-34.9) Spinal stenosis Hyperlipidemia Psoriasis Seasonal allergies Neck arthritis Dysfunction of right rotator cuff Hypertension Low vitamin D level Fibromyalgia Surgical History Hx of nasal septoplasty History of repair of hiatal hernia Status post laparoscopic sleeve gastrectomy History of cataract surgery History of sinus surgery History of partial hysterectomy History of myomectomy History of colonoscopy Hx of breast reduction, elective History of appendectomy Family History Family History Father Unknown family medical history Mother Alive and well Diabetes mellitus Brother Alive and well Brother Alive and well Sister Alive and well Social History Social History Household Members Other:: lives alone Housing: Apartment Alcohol intake: current Alcohol intake frequency: does not drink Patient Tobacco Use Status: Never used Tobacco Smoked in Last 30 Days: No e-Cigarette/Vaping Use: Never Used Use of substances other than those prescribed or required for medical reasons: No Advance Directives: No Advance Directives Information Provided: No Do you have a plan to hurt others: No Plan service: No Current occupational status: retired 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 [employer] Current occupational exposures/hazards: No Cognitive needs: No Hearing needs: Yes Vision needs: Yes Physical Exam ED Vital Signs: Vital Signs - 24 hr 02/11/25 12:32 02/11/25 16:15 02/11/25 16:50 Temperature 97.6 F 98.7 F Pulse Rate 63 78 78 Respiratory Rate 16 16 16 Blood Pressure 162/101 H 141/75 H 141/75 H Pulse Oximetry 98 96 96 Oxygen Delivery Method Room Air Room Air Room Air BMI result Body Mass Index 25.8 Const General: cooperative, no acute distress, alert and awake Nutritional Appearance: well nourished Orientation/consciousness: patient oriented x3 HENMT Head: Yes normal to inspection and Yes atraumatic Ears: hearing grossly normal bilaterally and external ears normal General nose exam: Normal external nose present, no nasal discharge noted and no epistaxis Face and sinus: Yes normal facial exam, No abrasion and No laceration Mouth: Normal oral and palatal mucosa present, no drooling and no muffled voice Eyes General: appearance normal, both eyes and all related structures Periorbital: periorbital findings normal Eyelids: Yes eyelids normal Conjunctivae: conjunctivae normal Pupils: Equal, round and reactive pupils present EOM: EOMs intact bilaterally Neck Neck: Yes normal visual inspection, Yes full ROM and Yes no lymphadenopathy Resp Effort & Inspection: normal respiratory effort and able to speak in complete sentences Neuro General: patient oriented x3, moves all extremities and CN's II-XI intact bilaterally Cranial nerves: Yes Equal, round and reactive pupils present Cognition (Neuro): normal cognition Extrem General: Yes normal to inspection, Yes full ROM and Yes capillary refill normal Psych Appearance: grossly normal Mental Status: mental status grossly normal Affect: normal affect Attitude: cooperative Thought process: Normal thought process present Thought content: Normal thought content present Insight: Good insight present (Psych) Course Course Course Narrative: 02/11/25 1248 SAGE Jang This is a Rapid Medical Examination (RME) performed by Alber Tang PA-C in triage. Full HPI, ROS, assessment and treatment plan per primary provider in the Main ED. Hx: 69 yo F here for timothy of elevated BP. took her morning meds around 1045. assoc RICHARD. no vision changes. Plan: screening labs, ekg, ct head Medical Decision Making Medical Decision Making MDM Narrative: Patient is a 69year old assigned female at with a history of HTN, ZURI on CPAP, fibromyalgia, psoriasis, osteoarthritis, spinal stenosis, and intestinal malabsorption s/p gastrectomy presenting to the emergency department today with a left sided headache and hypertension. Patient's physical exam was unremarkable. Patient's blood work was unremarkable. Patient's EKG was unremarkable. Patient's head CT showed no acute process. Patient's clinical presentation is most consistent with an elevated blood pressure reading without any evidence of hypertensive urgency or emergency. Patient's repeat blood pressures are appropriate. I explained my physical exam findings as well as all test results to the patient. I answered all questions asked by the patient. I stressed the importance of the patient taking her medication as directed (either prescribed or as the over the counter packaging recommends). I stressed the importance of the patient following up with her primary care provider. I stressed the importance of the patient returning to the emergency department immediately if her symptoms were to worsen or if she were to develop any dizziness, shortness of breath, difficulty breathing, chest pain, blurry vision, loss of vision, nausea, vomiting, abdominal pain, fever, chills, back pain, or any other complaints. Patient verbalized agreement and understanding with this treatment plan and discharge. Differential Diagnosis Differential Diagnoses: The differential diagnosis associated with the presentation includes Elevated blood pressure Headache Asymptomatic HTN Admission/Observation Consideration of admission/observation: Escalation of care including admission/observation considered Patient would have been admitted to the hospital had his work up had any findings where hospital admission was appropriate and his clinical presentation warranted hospital admission. Lab Data [facility] Lab Attestation statement: I reviewed the patient's lab results. My interpretation of these results are in the [facility] Rationale portion of this note. 02/11/25 13:31 02/11/25 13:31 Labs: Lab Results 02/11/25 02/11/25 Range/Units 13:31 16:02 WBC 4.3 L (4.8-10.8) X10*3/uL RBC 5.16 (4.20-5.50) X10*6/uL Hgb 14.1 (12.0-16.0) g/dl Hct 44.4 (37.0-47.0) % MCV 86.0 (80.0-98.0) fL MCH 27.3 (27.0-33.0) pg MCHC 31.8 (31.0-35.0) g/dl RDW 15.8 (11.0-16.0) % Plt Count 147 L (160-400) X10*3/uL MPV 10.3 (9.4-12.3) fL Immature Gran % (Auto) 0.2 (0.0-0.4) % Neut % (Auto) 63.5 (45-73) % Lymph % (Auto) 26.6 (20-40) % Mcdonough % (Auto) 9.0 (2-11) % Eos % (Auto) 0.5 (0-4) % Baso % (Auto) 0.2 (0-2) % Lymph # (Auto) 1.2 (1.2-4.9) X10*3/uL Mcdonough # (Auto) 0.4 (0.1-1.2) X10*3/uL Eos # (Auto) 0.0 (0.0-0.4) X10*3/uL Baso # (Auto) 0.0 (0.0-0.2) X10*3/uL Abs Immat Gran (auto) 0.01 (0.00-0.03) X10*3/uL Absolute Neuts (auto) 2.8 (2.0-8.3) x10*3/uL Absolute Nucleated RBC 0.000 (0.0-0.012) X10*3/uL Nucleated RBC % (auto) 0.0 (0.0-0.2) /100WBC Sodium 143 (135-145) mmol/L Potassium 4.1 (3.3-5.1) mmol/L Chloride 106 (96-108) mmol/L Carbon Dioxide 28 (22-29) mmol/L Anion Gap 13 (12-20) BUN 12 (9-16) mg/dL Creatinine 0.80 (0.5-1.4) mg/dL Estim Creat Clear Calc 71.7 Estimated GFR > 60 Random Glucose 85 (60-115) mg/dL Calcium 9.3 (8.4-10.2) mg/dL Magnesium 2.3 (1.6-2.6) mg/dL Total Bilirubin 0.6 (0.0-1.0) mg/dL AST 29 (5-31) U/L ALT 20 (0-31) U/L Alkaline Phosphatase 74 (39-117) U/L Troponin I High Sens 12.9 15.4 (<3.5-17.0) ng/L Total Protein 7.4 (6.5-8.0) g/dL Albumin 4.3 (3.5-5.0) g/dL Independent Interpretation I performed an independent interpretation of an: EKG and CT Scan Interpretation: My interpretation is in agreement with the radiologist's impression of this imaging study. Report Number: [id number]: Total DLP = 715.00 mGy-cm EXAMINATION: CT HEAD WITHOUT CONTRAST CLINICAL INFORMATION: Hypertension, headache COMPARISON: Sinus CT May 16, 2023, head CT November 19, 2014 TECHNIQUE: Contiguous axial imaging was performed from the skull base to vertex without intravenous administration of contrast. This CT examination was performed using dose optimization techniques as appropriate, variously including the following: *Automated exposure control *Adjustment of mA and/or kV according to patient size (this includes techniques or standardized protocols for targeted exams where dose is matched to indication/reason for exam; i.e. extremities or head) *Use of iterative reconstruction technique DLP: 715 mGY*cm FINDINGS: There is no acute ischemic change. Patchy periventricular and deep white matter hypodensities of increased since the prior examination. There is no intracranial hemorrhage. There is no mass-effect or midline shift. Basal cisterns and ventricles are within normal limits for age/cerebral volume. Orbits are symmetrical and unremarkable. Paranasal sinuses and mastoid air cells are pneumatized. There are no bony abnormalities. CT/CT head/brain wo IV con IMPRESSION: No acute intracranial abnormality. Chronic small vessel ischemic changes. Electronically signed by: Froy Alvarez MD 02/11/2025 01:28 PM EDT RP Dictated By: Froy Alvarez MD Signed By: Electronically signed by Froy Alvarez MD 02/11/25 1328 I independently interpreted this EKG and am in agreement with the below findings: Vent. Rate: 67 BPM Atrial Rate: 65 BPM P-R Int: 142 ms QRS Dur: 94 ms QT Int: 418 ms P-R-T Axes: 54 16 61 degrees QTcB Int: 441 ms Sinus rhythm with Premature atrial complexes Nonspecific T wave abnormality When compared with ECG of 25-Jun-2019 12:05, Premature atrial complexes are now Present T wave inversion no longer evident in Inferior leads T wave inversion no longer evident in Lateral leads DD/ 1325 Radiology Impression Discussion of test interpretation with radiology: I have reviewed the radiologist's reading. Chronic Conditions Patient?s care impacted by: Hypertension Discharge Plan Discharge Clinical Impression: Elevated blood pressure reading Patient Disposition: Home, Self-Care Instructions: Chronic Hypertension (ED) Additional Instructions: Continue taking your medication as prescribed. Follow up with your primary care provider. Return to the emergency department immediately if your symptoms worsen or if you develop any numbness, tingling, dizziness, shortness of breath, difficulty breathing, chest pain, blurry vision, loss of vision, nausea, vomiting, abdominal pain, fever, chills, back pain, or any other complaints. Please see the information below about our Patient Portal. If you are not yet enrolled in the [facility] Patient Portal, you will receive an enrollment email invitation following your visit to any [facility] care setting. You may also self-enroll in the Patient Portal by visiting our website: [email or web address] The following information is required to access the Patient Portal: - Your [facility] Medical Record Number - Your personal home email address (must match what is in your electronic medical record, Registration staff can assist with this) - Name - Date of Capabilities of the Patient Portal: - Message some providers - View upcoming appointments - Access your health summary, medical history, and visit history - View current conditions and allergies - View procedure and lab results - View your medications, including guidelines, side effects, and precautions - Complete pre-appointment questionnaires requested by your provider - Ready summary reports of your office visits and procedures To access the Patient Portal Mobile [employer], follow these directions: - Search [employer] in the [employer] Store or Google [employer] Store - Download the [employer] - Search for [facility] - Enter your login/password Prescriptions: No Action furosemide 20 mg tablet 20 mg PO DAILY Qty: 90 3RF irbesartan 150 mg tablet 1 tab PO DAILY cetirizine [Zyrtec] 10 mg tablet 10 mg PO DAILY PRN (Reason: allergy symptoms) Qty: 30 0RF epinephrine [EpiPen] 0.3 mg/0.3 mL auto-injector 0.3 mg IM Q20M PRN (Reason: anaphylaxis) Qty: 2 0RF Rx Instructions: do not exceed 3 doses per episode Bariatric Multivitamins 45 mg iron- 800 mcg-120 mcg capsule 1 cap PO DAILY@0600 (DME) oxygen-air delivery systems Device See Rx Instructions .ROUTE .MEDSUPPLY Qty: 1 Rx Instructions: As directed, pt is on c-pap not oxygen atorvastatin 20 mg tablet 20 mg PO DAILY hydralazine 25 mg tablet 25 mg PO BID baclofen 10 mg tablet 10 mg PO TID 30 Days Qty: 90 6RF clobetasol 0.05 % ointment 1 appl topical BID Referrals: Courtney Whyte MD [Primary Care Provider, Endocrinology] Interventions: ED Discharge Assessment Last Done: 02/11/25 16:50 Discharge Date/Time: 02/11/25 16:50 Print Language: Amharic
--- NOTE | 2025-02-11 12:48 | ECG_ITS ---
Test Reason : hypertensive Blood Pressure : */* mmHG Vent. Rate : 67 BPM Atrial Rate : 65 BPM P-R Int : 142 ms QRS Dur : 94 ms QT Int : 418 ms P-R-T Axes : 54 16 61 degrees QTcB Int : 441 ms Sinus rhythm with Premature atrial complexes Nonspecific T wave abnormality Abnormal ECG When compared with ECG of 25-Jun-2019 12:05, Premature atrial complexes are now Present T wave inversion no longer evident in Inferior leads T wave inversion no longer evident in Lateral leads Referred By: Kerri Tang Electronically Signed By: ANTON SINHA
[2025-02-11 13:44] LABS: MANUAL DIFF FLAG NO
[2025-02-11 13:45] LABS: Hematocrit 44.4 % (37.0-47.0); Hemoglobin 14.1 g/dl (12.0-16.0); Imm Gran Abs Auto 0.01 X10*3/uL (0.00-0.03); Imm Gran Pct Auto 0.2 % (0.0-0.4); Lymphocytes Absolute Auto 1.2 X10*3/uL (1.2-4.9); Mean Corpuscular HGB Conc 31.8 g/dl (31.0-35.0); Mean Corpuscular Hemoglobin 27.3 pg (27.0-33.0); Mean Corpuscular Volume 86.0 fL (80.0-98.0); NRBC Abs Auto 0.000 X10*3/uL (0.0-0.012); NRBC Pct Auto 0.0 /100WBC (0.0-0.2); Platelet Count 147 X10*3/uL (160-400); Red Blood Count 5.16 X10*6/uL (4.20-5.50); White Blood Count 4.3 X10*3/uL (4.8-10.8)
[2025-02-11 14:00] LABS: Alanine Aminotransferase 20 U/L (0-31); Albumin Level 4.3 g/dL (3.5-5.0); Alkaline Phosphatase 74 U/L (39-117); Anion Gap 13 (12-20); Aspartate Amino Transferase 29 U/L (5-31); Blood Urea Nitrogen 12 mg/dL (9-16); Calcium 9.3 mg/dL (8.4-10.2); Carbon Dioxide 28 mmol/L (22-29); Chloride 106 mmol/L (96-108); Creatinine Clr Calc Pharmacy 71.7; Estimated Glomerular Filt Rate > 60; Magnesium 2.3 mg/dL (1.6-2.6); Potassium 4.1 mmol/L (3.3-5.1); Sodium 143 mmol/L (135-145); Total Protein 7.4 g/dL (6.5-8.0)
[2025-02-11 14:07] LABS: Troponin-I High Sensitivity 12.9 ng/L (<3.5-17.0)
[2025-02-11 16:15] VITALS: BP 141/75; PULSE 78; RESP 16; O2SAT 96
[2025-02-11 16:32] LABS: Troponin-I High Sensitivity 15.4 ng/L (<3.5-17.0)
[2025-02-11 16:50] VITALS: BP 141/75; PULSE 78; RESP 16; TEMP 37.1; O2SAT 96
--- OUTSIDE RECORDS SUMMARY | 2025-02-11 17:03 | XMS_ITS | Patient Health Record ---
Author Organization [facility] Address [address] [place] [address] Care Team Providers Care Senior Communications Specialist Name Role Phone Vanessa Guzmán MD Primary Care Provider Unavail able Lee Zurdo Unavailable [phone] Allergies Allergen (clinical drug ingredient) Drug/Non Drug Allergy documented on EMR Reaction Allergy Type Onset Date Status dust and trees (uncoded) Unknown Allergy Active Reason For Referral No Information Medications Medication SIG (Take, Route, Frequency, Duration) Notes Start Date End Date Status amLODIPine Besylate 5 MG 1 tablet Orally Once a day Active hydroCHLOROthiazide 25 MG 1 tablet Orall y Once a day Active Benicar 40 MG 1 tablet Orally Once a day Active Calcium 600 + D 600-200 MG-UNIT Orally Active Problems Problem Type SNOMED Code ICD Code Onset Dates Problem Status W/U Status Risk Notes Problem 015051779 Encounter for screening for malignant neoplasm of colon (Z12.11) Active confirmed Problem 38273846 Halitosis (R19.6) Active confirmed Problem Encounter for screening for malignant neoplasm of rectum (Z12.12) Active confirmed Plan Of Treatment No Information Insurance Providers Payer Name Payer Address Payer Phone Subscriber Number Group Number Insured Name Patient Relationship to Insured Coverage Start Date Coverage End Date [facility] [employer] [facility] [address] [address] [place], [place] [phone] [id number] BRENDON ALTAMIRANO Self - patient is the insured Medical (General) History Medical History History ICD Code Colonoscopy 08-11-2007--negative except f or internal hemorrhoids Hypertension Hyperlipidemia Arthiritis in lower back Sleep apnea Denies AK,DM,CVA,Lung disease,renal dise ase Obesity--enrolled at the [facility]--she has lost over 20 pounds since September of 2015 Surgical History Surgery Date(Month/Year) appendectomy breast reduction hysterectomy fibroid tumors removal sinus surgery
--- OUTSIDE RECORDS SUMMARY | 2025-02-11 17:03 | XMS_ITS | Patient Health Record ---
Author Organization [employer] [facility] Address [address] [place] [address] Care Team Providers Care Credit Collections Clerk Name Role Phone Geo Hager MD Primary Care Provider González berkowitz Reason For Referral No Information Medications Medication SIG (Take, Route, Frequency, Duration) Notes Start Date End Date Status Vitamin D Active hydroCHLOROthiazide 25 MG Orally Active Benicar 40 MG Orally Active Problems Problem Type SNOMED Code ICD Code Onset Dates Problem Status W/U Status Risk Notes Problem Osteoporosis (06288290) Osteoporosis (733.0) Active confirmed Problem Essential hypertension (53477644) Essential (primary) hypertension (I10) Active confirmed Problem Obesity (778873516) Obesity, unspecified (E66.9) Active confirmed Problem Sleep apnea (91497597) Sleep apnea, unspecified (G47.30) Active confirmed Problem Psoriasis (5504957) Psoriasis, unspecified (L40.9) Active confirmed Plan Of Treatment No Information Insurance Providers Payer Name Payer Address Payer Phone Subscriber Number Group Number Insured Name Patient Relationship to Insured Coverage Start Date Coverage End Date [facility] [address] [place] [address] [phone] [id number] BRENDON ALTAMIRANO Self - patient is the insured Medical (General) History Medical History History ICD Code Essential (primary) hypertension Essential (primary) hypertension Sleep apnea, unspecified Osteoporosis Obesity, unspecified Psoriasis, unspecified Surgical History Surgery Date(Month/Year) APPENDECTOMY BREAST REDUCTION laparoscopic hysterectomy, ovaries remai n age 39 Myomectomy
--- OUTSIDE RECORDS SUMMARY | 2025-02-11 17:03 | XMS_ITS | Encounter Summary ---
Author Organization [employer] Address [address] [facility] 7t [place] [address] Care Team Providers Care Senior Reliability Engineer Name Role Phone Unavailable Primary Care Provider Unavailabl e Reason for Visit * Reason Onset Date Comments Nurse Triage 02/11/2025 Encounter Details Date Type Department Care Team (Late st Contact Info) Description 02/11/2025 Telephone [facility] [address] [place] [place] [address] Eleanor Lal, RN Nurse Triage Social History Tobacco Use Types Packs/Day Years Used Date Smoking Tobacco: Never Smokeless Tobacco: Never Comments Unknown Sex and Gender Information Value Date Recorded Sex Assigned at Female 11/09/2024 10:09 AM EDT Legal Sex Female 10:01 AM EDT Gender Identity Female 11/09/2024 10:09 AM EDT Sexual Orientation Straight 11/09/2024 10 :09 AM EDT documented as of this encounter Miscellaneous Notes * Telephone Encounter - Eleanor Lal RN - 02/11/2025 12:01 PM EDT Assessment: Patient presents to green team service desk team lead with sticky note of elevated blood pressures readings from dental clinic appt today. Per note, BP was 170/104 and 168/100, pulse 64 during dental visit today. Pt never seen at [facility], has new patient appt 03/08/25 on [place] team. Pt's vitals at 11:40am: BP 162/104 (right, adult LG, manual) pulse 67, O2 99% on room air RR 18 Vitals at 11:47 am: 152/102 Pt reports headache in front right head, states it started during dental visit (~1-2 hours ago), stated it may be related to fear over elevated blood pressure. Denies chest pain, shortness of breath,dizziness. Confirms took BP medications today and is taking them consistently (irbesartan, olmesartan). Statesthat she only slept 4 hrs last night, confirmed eating fruit for breakfast today. Reports chronic back and neck pain. Allergies[1] Current Medications[2] Patient Active Problem List Diagnosis Date Noted Osteoporosis 12/06/2024 Psoriasis 12/06/2024 Sleep apnea 03/09/2024 Referred otalgia 06/30/2022 Chronic rhinitis 11/03/2018 Essential hypertension 11/03/2018 Plan of care: Report to nurse support group manager who advised pt seek care at emergency department or other urgent care for elevated blood pressure while taking BP medications with headache. No sick on site appts available for 2 days and walk in center full. Was advised to tell pt to come to walk in center tomorrow or as needed in advance of 03/08/25 PCP appt. Explained this to pt who verbalized understanding and stated elizabeth go to [facility] now. She took BP readings with her. Eleanor Lal RN [1] Allergies Allergen Reactions Dust Mite Extract Unknown Levonorgestrel-Ethinyl Estrad Unknown [2] Current Outpatient Medications Medication Sig Dispense Refill baclofen (Lioresal) 10 MG tablet Take 1 tablet by mouth every 6 (six) hours during the day. celecoxib (CeleBREX) 50 MG capsule Take 50 mg by mouth 2 times daily. clobetasol (Temovate) 0.05 % ointment fluticasone (Flonase) 50 MCG/ACT nasal spray USE 1 SPRAY INTO BOTH NOSTRILS TWICE A DAY furosemide (Lasix) 40 MG tablet Take 1 tablet by mouth 2 times daily. gabapentin (Neurontin) 300 MG capsule take 1 capsule by mouth everyday at bedtime hydrALAZINE (Apresoline) 50 MG tablet Take 1 tablet by mouth 2 times daily. irbesartan (Avapro) 150 MG tablet Take 1 tablet by mouth Once per day. olmesartan (Benicar) 40 MG tablet Orally predniSONE (Deltasone) 20 MG tablet Take 2 tablets by mouth Once per day. Skyrizi Pen 150 MG/ML solution auto-injector INJECT ONE PEN UNDER THE SKIN EVERY 12 WEEKS. No current facility-administered medications for this visit. documented in this encounter Plan of Treatment Upcoming Encounters Date Type Department Care Team (Late st Contact Info) Description 03/08/2025 1:00 PM EDT Office Visit [facility] [address] [place] [address] Aimee Ivy FNP [address] [place] [address] documented as of this encounter Visit Diagnoses Not on filedocumented in this encounter
--- OUTSIDE RECORDS SUMMARY | 2025-02-11 17:03 | XMS_ITS | Data Portability ---
Author Organization [place] - [facility], Allergy Address [address] [address] Care Team Providers Care Engineering Writer Name Role Phone JOSE AUGUSTINE Primary Care [...] for long-term benefit. All questions were answered. rico Not available 12/28/2023 10:07:32 03/09/2024 03/09/2024 Persistent [...] submucous resection inferior turbinate (SURG) 2023 024 [email or web address] Not available 4 08:48:[address], orbits + paranasal sinuses, w/o contrast 2023 024 [email or web address] [facility], [address], [address], [place], [address], 4 16:39:13 Medication Orders None recorded. Patient TargetsNo targets recorded. Patient InstructionsNo instructions recorded. Reason for Referral None Reported. Results Created Date Observation Date Name Description Value Unit Range Abnormal Flag Note LastModifiedBy Organization Detail LastModifiedTime 03/08/2003/06/2024 CT, sinus es, w/o contr ast No observ ation record ed. [email or web address] [facility] [address] [facility] [address], [place], [address], 03/09/2024 09:01:57 Result Notes None recorded. Problems Name Problem SNOMED Code Status Onset Date Resolution Date Notes Provider Name and Address Organization Details Recorded Time Hypertrop hy of nasal turbinate s 73968490 Active 2018 Hypertrop hy of nasal turbinate s; Note: Date Diagnosed : 11/03/2018 2:33 PM (J34.3) Not Available [facility] 4 02:23:06 Essential hypertens ion 77132607 Active 2018 Essential (primary) hypertens ion; Note: Date Diagnosed : 11/03/2018 2:33 PM (I10) Not Available [facility] 4 02:22:30 Nasal congestio n 47984449 Active 2018 Nasal congestio n; Note: Date Diagnosed : 11/03/2018 2:33 PM (R09.81) Not Available [facility] 4 02:22:54 Obstructi ve sleep apnea syndrome 97024472 Active 2018 Obstructi ve sleep apnea (adult) (pediatri c); Note: Date Diagnosed : 11/03/2018 2:35 PM (G47.33) Not Available [facility] 4 02:23:00 Pain of left temporoma ndibular joint 63194188690 280774 Active 2021 Arthralgi a of left temporoma ndibular joint; Note: Date Diagnosed : 2 11:35 AM (M26.622) Not Available [facility] 4 02:23:00 Headache 52204379 Active 2018 Headache, unspecifi ed; Note: Changed from R51 to R51.9 (12/03/2020 4:50 PM) , Date Diagnosed : 02/02/2019 12:11 PM (R51) Not Available [facility] 4 02:22:33 Otalgia of left ear 4914321237 Active 2021 Otalgia, left ear; Note: Date Diagnosed : 2 11:35 AM (H92.02) Not Available [facility] 4 02:23:04 Chronic rhinitis 90628206 Active 2018 Chronic rhinitis; Note: Date Diagnosed : 11/03/2018 2:33 PM (J31.0) Not Available [facility] 4 02:22:48 Sensorine ural hearing loss of bilateral ears 620914380 Active 2020 Sensorine ural hearing loss, bilateral ; Note: Date Diagnosed : 12/03/2020 4:33 PM (H90.3) Not Available [facility] 4 02:22:41 Referred otalgia 61226423 Active 2021 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 4 08:41:37 Problem Notes None recorded. Procedures Surgical History Date Name Laterality Status Provider Name and Address Organization Details Recorded Time 5 Resect inferior turbinate completed JOVANNA JESUS MD [address], [place], [address], [facility] - [facility] 08/14/2024 09:45:39 4 JMSNasal/Sinus Endoscopy completed JOVANNA JESUS MD [address] [facility],[address], [place], [address], [facility] - [facility] 03/09/2024 08:43:18 4 JMSNasal/Sinus Endoscopy completed ELIZABETH GANDHI PA-C [address] [facility] [address], [place], [address], [facility] 12/28/2023 10:05:50 Imaging Results None recorded. Procedure Notes None recorded. Medical Equipment None Reported. Allergies Allergen ID Allergen Name Allergen Category Reaction Reaction Severity Criticality Documentation Date Start Date Code Code System Note Provider Name and Address Organization Details Recorded Time 271047 house dust allergeni c extract environme nt,medica tion Not available Not available Not available 12/28/2023 26735 9 RxNorm Robert crooks [facility] 4 09:12:48 254423 ethinyl estradiol / levonorge strel medicatio n Not available Not available Not available 12/28/2023 34422 8 RxNorm Robert crooks [facility] 4 09:13:05 Medications Name Sig Start Date Stop Date Status Note LastModified by Organization Details LastModified Time losartan 50 mg tablet 08/01 completed Medicati on ID: [id number] D uration Value: 30 Brand Name: losartan [...] mg tablet 08/24 completed Medicati on ID: [id number] D uration Value: 30 Brand Name: atorvasminor ochoa Sen d Method: E-Prescr ibed Sub s [...] both nostrils 03/07 completed Medicati on ID: [id number] Leonarda maloney By Name: Wayne Kelley nd Name: ipratrop ium bromide Send Method: [...] Updated DateTime 08/24/2024 175.26 cm 37.2 kg/m2 769903.28 g Samantha Jackman [place] - [facility] 08/24/2024 12:49:18 Social History None recorded. Functional Status Question Answer Note LastModified by Organizat ion Details LastModified Time Do you use any illicit or recreational drugs? No [email or web address] Information not available 12/28/2023 Do you or have you ever used any other forms of tobacco or nicotine? No Information not available 12/28/2023 What is your level of alcohol consumption? None [email or web address] Information not available 12/28/2023 Mental Status None recorded. Family History Nothing Reported. Medical History Condition Response Hypertension Y High Cholesterol Y Gynecological HistoryNo gynecological history recorded. Obstetrics History GPAL:G 0 P 0 0 0 0 Past Encounters Encounter ID Performer Location Encounter Start Date Encounter Closed Date Diagnosis/Indication Diagnosis SNOMED-CT Code Diagnosis ICD10 Code Diagnosis Note [id number] ELIZABETH GANDHI PA-C [facility] [address] [address] 12/28/2023 08:25:56 12/28/2023 09:57:35 Chronic rhinitis 62965470 J31.0 Hypertroph y of nasal turbinates 77434598 J34.3 Nasal congestion 1932771 0 R09.81 Obstructiv e sleep apnea syndrome 77482574 G47.33 [id number] JOVANNA SHAW MD [facility] [address] [address] 03/09/2024 08:02:23 03/09/2024 08:47:43 Hypertrophy of nasal turbinates 40240451 J34.3 Discussed turbinate reduction. Patient has hypertroph [...] by patient despite open airway Essential hypertension 61178386 I10 Sleep apnea 81816479 G47 .30 [id number] MAYRA BARDALES PA-C [facility] [address] [address] 08/24/2024 12:20:08 08/24/2024 13:27:53 Hypertrophy of nasal turbinates 23843966 J34.3 Nasal congestion 2042613 0 R09.81 Postoperative visit 1836 58609 Z48.89 Health Concerns Section Related Observation LastModified by Organization Detai ls LastModified Time None Recorded Concern Status LastModified by Organization Details LastModified Time None Recorded Advance Directives Directive None Recorded Payers Insurance Date Sequence Insurance Name Policy Number Policy Galdamez Covered Member ID Galdamez Member ID Guarantor Name 11/14/[address] [facility] - PLAN 1 (MEDICARE SUPPLEMENT) [id number] Quinten Bowen [id number] Quinten Bowen 02/16/2024 2 UNSPECIFIED REMIT PAYOR Quinten Bowen 08/23/2024 3 [place] [facility] Quinten Bowen [id number] Quinten Bowen 08/24/2024 1 [place] [employer] Quinten Bowen [id number] Quinten Bowen Notes Date Note Type Note Provider [...] nasal sprays. Finds little benefit from this. JOVANNA JESUS MD [address] [facility] [address], [place], [address], [facility] - [facility] 12/28/2023 12:45:11 03/09/2024 text/html Patient with longstanding history of nasal congestion secondary to allergic rhinitis, use of antihypertensive agents and obstructive sleep apnea. CT scan shows no evidence of sinus disease. This is similar to CT scan in 2020. She has tried multiple topical sprays including antihistamines, nasal steroids and Atrovent without improvement. JOVANNA JESUS MD [address] [facility], [place], [address], [facility] - [facility] 03/09/2024 08:45:04 08/24/2024 text/html 69yo female pres ents following inferior turbinate surgery on 07/24/[address] Jesus.She has been following postoperative instructions. Mild nasal congestion bilaterally. JOVANNA JESUS MD [address] [facility] [address], [place], [address], [facility] 08/26/2024 18:57:50 OBGyn Episode No OBEpisode recorded.
== END 2025-02-11 16:50 | disposition home or self-care (01) ==
PROVIDERS: Physician Assistant Medical; Emergency Provider Emergency Medicine; PCP Internal Medicine
DX: I10 Essential (primary) hypertension (principal); R51.9 Headache, unspecified; L40.9 Psoriasis, unspecified; E78.5 Hyperlipidemia, unspecified; Z79.899 Other long term (current) drug therapy
CPT/HCPCS: 36415; 70450; 80053; 83735; 84484; 85025; 93005; 99284

== ENCOUNTER → 2025-02-11 12:48 | Outpatient (BNV) | payer MEDICARE, OTHER, MEDICAID, SELFPAY | PROVIDERS: Emergency Provider Emergency Medicine; PCP Internal Medicine; Visit Provider Internal Medicine | DX: I49.1 Atrial premature depolarization (principal) | CPT/HCPCS: 93010 ==

== ENCOUNTER → 2025-02-11 12:48 | Outpatient (BNV) | payer MEDICARE, OTHER, MEDICAID, SELFPAY | PROVIDERS: PCP Internal Medicine; Visit Provider Radiology Diagnostic Radiology | DX: I67.82 Cerebral ischemia (principal) | CPT/HCPCS: 70450 ==

== ENCOUNTER 2025-02-25 16:24 | Outpatient (REF) | payer MEDICARE, MEDICAID, SELFPAY ==
--- OUTSIDE RECORDS SUMMARY | 2025-02-22 10:00 | XMS_ITS | Encounter Summary ---
Author Organization [employer] Address [address] [facility] 7t [place] [address] Care Team Providers Care Cota Name Role Phone Unavailable Primary Care Provider Unavailabl e Reason for Visit * Reason Comments Dentures Lower dentures adjus tments Encounter Details Date Type Department Care Team (Late st Contact Info) Description 02/22/2025 10:00 AM EDT Office Visit [facility] [address] [place] [address] Francy Warren Missing teeth, acquired (Primary Dx) Social History Tobacco Use Types Packs/Day Years Used Date Smoking Tobacco: Never Smokeless Tobacco: Never Alcohol Use Standard Drinks/Week Comments Never 0 (1 standard drink = 0.6 oz pur e alcohol) Comments Unknown Sex and Gender Information Value Date Recorded Sex Assigned at Female 11/09/2024 10:09 AM EDT Legal Sex Female 10:01 AM EDT Gender Identity Female 11/09/2024 10:09 AM EDT Sexual Orientation Straight 11/09/2024 10 :09 AM EDT documented as of this encounter Last Filed Vital Signs Vital Sign Reading Time Taken Comments Blood Pressure 176/106 02/22/2025 10:19 AM EDT Pulse 64 02/22/2025 10:19 AM EDT Temperature - - Respiratory Rate - - Oxygen Saturation - - Inhaled Oxygen Concentration - - Weight - - Height - - Body Mass Index - - documented in this encounter Progress Notes * Francy Warren - 02/22/2025 10:00 AM EDT Patient presented for an adjustment on her lower partial. The intaglio surfaces and flanges were adjusted to patients liking Patient inquired about a mouth piece to help with her obstructive sleep apnea. I let the patient know that we do not make those mouth pieces here but she could inquire with her insurance or PCP as [facility] provide those services Denture adjusted until patient comfortable and satisfied and occlusion stable. All questions were answered and patient left comfortable and in good condition Cosigned by Tito Edwards DDS at 02/25/2025 4:12 PM EDT Associated attestation - Tito Edwards DDS - 02/25/2025 4:12 PM EDT Reviewed and signed. * Tito Edwards DDS - 02/22/2025 10:00 AM EDT Reviewed and signed. documented in this encounter Plan of Treatment Upcoming Encounters Date Type Department Care Team (Late st Contact Info) Description 03/08/2025 1:00 PM EDT Office Visit [facility] [address] [place] [address] Aimee Ivy FNP [address] [place] [address] documented as of this encounter Procedures Procedure Name Priority Date/Time Associated Diagnosis Comments CASE PRESENTATION, DETAILED AND EXTENSIVE TREATMENT PLANNING Routine 02/22/2025 10:00 AM EDT Missing teeth, acquired ADJUST PARTIAL DENTURE - MANDIBULAR Routine 02/22/2025 10:00 AM EDT documented in this encounter Visit Diagnoses Diagnosis Missing teeth, acquired- Primary documented in this encounter
--- OUTSIDE RECORDS SUMMARY | 2025-02-25 16:27 | XMS_ITS | Clinical Summary ---
Author Organization [facility] Address [address] [place] [address] Care Team Providers Care Commissioner Conservation Of Resources Name Role Phone Mika Forrester MD Primary Care Provider [phone] Social History Tobacco Use Types Packs/Day Years [...] Vaccine ( - 2023-2 5 season) 2024 Depression Screening 08/01/2024 Influenza Vaccine (#1) 2025 RSV Immunization Adult Patie nts (1 [...] age to complete this topic Care Teams Commissioner Conservation Of Resources Relationship Specialty Start Date End Date Mika Forrester MD [address] [place] [address] Dr Edd [place] PCP - General Button Tacker 02/16/19
--- OUTSIDE RECORDS SUMMARY | 2025-02-25 16:27 | XMS_ITS | Patient Health Record ---
Author Organization [facility] Address [address] [place] [address] Care Team Providers Care Mechanical Drafter Name Role Phone Vanessa Guzmán MD Primary Care Provider Unavail able Lee Zurdo Unavailable [phone] Allergies Allergen (clinical drug ingredient) Drug/Non Drug [...] Problem Status W/U Status Risk Notes Problem [id number] Encounter for screening for malignant neoplasm of colon (Z12.11) Active confirmed Problem 04208922 Halitosis (R19.6) Active confirmed Problem Encounter for screening for malignant neoplasm of rectum (Z12.12) Active confirmed Plan Of Treatment No Information Insurance Providers Payer Name Payer Address Payer Phone Subscriber Number Group Number Insured Name Patient Relationship to Insured Coverage Start Date Coverage End Date [facility] [address] [address] [place], [place] [id number] BRENDON ALTAMIRANO Self - patient is the insured Medical (General) History Medical History History ICD Code Colonoscopy 08-11-2007--negative except f or internal hemorrhoids Hypertension Hyperlipidemia Arthiritis in lower back Sleep apnea Denies [place],DM,CVA,Lung disease,renal dise ase Obesity--enrolled at the [facility]--she has lost over 20 pounds since September of 2015 Surgical History Surgery Date(Month/Year) appendectomy breast reduction hysterectomy fibroid tumors removal sinus surgery
--- OUTSIDE RECORDS SUMMARY | 2025-02-25 16:27 | XMS_ITS | Data Portability ---
Author Organization [place] - [facility], Allergy Address [address] [address] Care Team Providers Care Mirror Department Supervisor Name Role Phone JOSE AUGUSTINE Primary Care [...] submucous resection inferior turbinate (SURG) 2023 024 [email or web address] [id number] Not available 4 08:48:[address], orbits + paranasal sinuses, w/o contrast 2023 024 [email or web address] [facility] [place], [address], [address], [place], [address], 4 16:39:13 Medication Orders None recorded. Patient TargetsNo targets recorded. Patient InstructionsNo instructions recorded. Reason for Referral None Reported. Results Created Date Observation Date Name Description Value Unit Range Abnormal Flag Note LastModifiedBy Organization Detail LastModifiedTime 03/08/2003/06/2024 CT, sinus es, w/o contr ast No observ ation record ed. [email or web address] [facility] [place] [address] [facility] [address], [place], [address], 03/09/2024 09:01:57 Result Notes None recorded. Problems Name Problem SNOMED Code Status Onset Date Resolution Date Notes Provider Name and Address Organization Details Recorded Time Hypertrop hy of nasal turbinate s 58574889 Active 2018 Hypertrop hy of nasal turbinate s; Note: Date Diagnosed : 11/03/2018 2:33 PM (J34.3) Not Available [facility] 4 02:23:06 Essential hypertens ion 59861794 Active 2018 Essential (primary) hypertens ion; Note: Date Diagnosed : 11/03/2018 2:33 PM (I10) Not Available [facility], [facility] 4 02:22:30 Nasal congestio n 24372925 Active 2018 Nasal congestio n; Note: Date Diagnosed : 11/03/2018 2:33 PM (R09.81) Not Available [facility], [facility] 4 02:22:54 Obstructi ve sleep apnea syndrome 11682790 Active 2018 Obstructi ve sleep apnea (adult) (pediatri c); Note: Date Diagnosed : 11/03/2018 2:35 PM (G47.33) Not Available [facility] 4 02:23:00 Chronic rhinitis 36143346 Active 2018 Chronic rhinitis; Note: Date Diagnosed : 11/03/2018 2:33 PM (J31.0) Not Available [facility], [facility] 4 02:22:48 Headache 12750965 Active 2018 Headache, unspecifi ed; Note: Changed from R51 to R51.9 (12/03/2020 4:50 PM) , Date Diagnosed : 02/02/2019 12:11 PM (R51) Not Available [facility], [facility] 4 02:22:33 Sensorine ural hearing loss of bilateral ears 595613165 Active 2020 Sensorine ural hearing loss, bilateral ; Note: Date Diagnosed : 12/03/2020 4:33 PM (H90.3) Not Available [facility] 4 02:22:41 Pain of left temporoma ndibular joint 56554743920 827882 Active 2021 Arthralgi a of left temporoma ndibular joint; Note: Date Diagnosed : 2 11:35 AM (M26.622) Not Available [facility] 4 02:23:00 Otalgia of left ear 4019037057 Active 2021 Otalgia, left ear; Note: Date Diagnosed : 2 11:35 AM (H92.02) Not Available [facility] 4 02:23:04 Referred otalgia 52080494 Active 2021 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 4 08:41:37 Problem Notes None recorded. Procedures Surgical History Date Name Laterality Status Provider Name and Address Organization Details Recorded Time 5 Resect inferior turbinate completed JOVANNA JESUS MD [address], [place], [address], [facility] - [facility] 08/14/2024 09:45:39 4 JMSNasal/Sinus Endoscopy completed JOVANNA JESUS MD [address] [facility],[address], [place], [address], [facility] - [facility] 03/09/2024 08:43:18 4 JMSNasal/Sinus Endoscopy completed ELIZABETH GANDHI PA-C 100 [facility] [address], [place], [address], [facility] 12/28/2023 10:05:50 Imaging Results None recorded. Procedure Notes None recorded. Medical Equipment None Reported. Allergies Allergen ID Allergen Name Allergen Category Reaction Reaction Severity Criticality Documentation Date Start Date Code Code System Note Provider Name and Address Organization Details Recorded Time 551824 house dust allergeni c extract environme nt,medica tion Not available Not available Not available 12/28/2023 41920 9 RxNorm Robert crooks [facility] 4 09:12:48 447476 ethinyl estradiol / levonorge strel medicatio n Not available Not available Not available 12/28/2023 59227 8 RxNorm Robert crooks [facility] 4 09:13:05 Medications Name Sig Start Date Stop Date Status Note LastModified by Organization Details LastModified Time losartan 50 mg tablet 08/01 completed Medicati on ID: [id number] D uration Value: 30 Brand Name: losartan [...] mg tablet 08/24 completed Medicati on ID: [id number] D uration Value: 30 Brand Name: atorvasminor [...] both nostrils 03/07 completed Medicati on ID: [id number] Leonarda maloney By Name: Wayne Kelley nd [...] Updated DateTime 08/24/2024 175.26 cm 37.2 kg/m2 812940.28 g Samantha Jackman [place] - [facility] 08/24/2024 12:49:18 Social History None recorded. Functional Status Question Answer Note LastModified by Organizat ion Details LastModified Time Do you use any illicit or recreational drugs? No [email or web address] Information not available 12/28/2023 Do you or have you ever used any other forms of tobacco or nicotine? No [email or web address] Information not available 12/28/2023 What is your level of alcohol consumption? None Information not available 12/28/2023 Mental Status None recorded. Family History Nothing Reported. Medical History Condition Response High Cholesterol Y Hypertension Y Gynecological HistoryNo gynecological history recorded. Obstetrics History GPAL:G 0 P 0 0 0 0 Past Encounters Encounter ID Performer Location Encounter Start Date Encounter Closed Date Diagnosis/Indication Diagnosis SNOMED-CT Code Diagnosis ICD10 Code Diagnosis Note [id number] ELIZABETH GANDHI PA-C [facility] [address] [address] 12/28/2023 08:25:56 12/28/2023 09:57:35 Chronic rhinitis 42556883 J31.0 Hypertroph y of nasal turbinates 91227045 J34.3 Nasal congestion 1336846 0 R09.81 Obstructiv e sleep apnea syndrome 73485701 G47.33 [id number] JOVANNA SHAW MD [facility] [address] [address] 03/09/2024 08:02:23 03/09/2024 08:47:43 Hypertrophy of nasal turbinates 31713057 J34.3 Discussed turbinate reduction. Patient has hypertroph [...] by patient despite open airway Essential hypertension 51977849 I10 Sleep apnea 41304699 G47 .30 [id number] MAYRA BARDALES PA-C [facility] [address] [address] 08/24/2024 12:20:08 08/24/2024 13:27:53 Hypertrophy of nasal turbinates 28868347 J34.3 Nasal congestion 2626114 0 R09.81 Postoperative visit 1836 59052 Z48.89 Health Concerns Section Related Observation LastModified by Organization Detai ls LastModified Time None Recorded Concern Status LastModified by Organization Details LastModified Time None Recorded Advance Directives Directive None Recorded Payers Insurance Date Sequence Insurance Name Policy Number Policy Galdamez Covered Member ID Galdamez Member ID Guarantor Name 11/14/2024 2 [employer] - PLAN 1 (MEDICARE SUPPLEMENT) [id number] Quinten Bowen [id number] Quinten Bowen 02/16/2024 2 UNSPECIFIED REMIT PAYOR Quinten Bowen 08/23/2024 3 [place] [facility] Quinten Bowen [id number] Quinten Bowen 08/24/2024 1 [place] B[place] [employer] [facility] Quinten Bowen [id number] Quinten Bowen OBGyn Episode No OBEpisode recorded.
--- OUTSIDE RECORDS SUMMARY | 2025-02-25 16:27 | XMS_ITS | Patient Health Record ---
Author Organization [employer] [facility] Address [address] [facility] [address] [place] [address] Care Team Providers Care Hand Gluer And Slicer Name Role Phone Geo Hager MD Primary Care Provider González berkowitz Reason For Referral No Information Medications Medication SIG (Take, Route, Frequency, Duration) Notes Start Date End Date Status Vitamin D Active hydroCHLOROthiazide 25 MG Orally Active Benicar 40 MG Orally Active Problems Problem Type SNOMED Code ICD Code Onset Dates Problem Status W/U Status Risk Notes Problem Osteoporosis (34144912) Osteoporosis (733.0) Active confirmed Problem Essential hypertension (78181423) Essential (primary) hypertension (I10) Active confirmed Problem Obesity (032863921) Obesity, unspecified (E66.9) Active confirmed Problem Sleep apnea (19860852) Sleep apnea, unspecified (G47.30) Active confirmed Problem Psoriasis (3784388) Psoriasis, unspecified (L40.9) Active confirmed Plan Of Treatment No Information Insurance Providers Payer Name Payer Address Payer Phone Subscriber Number Group Number Insured Name Patient Relationship to Insured Coverage Start Date Coverage End Date [facility] [address] [place] [address] [id number] BRENDON ALTAMIRANO Self - patient is the insured Medical (General) History Medical History History ICD Code Essential (primary) hypertension Essential (primary) hypertension Sleep apnea, unspecified Osteoporosis Obesity, unspecified Psoriasis, unspecified Surgical History Surgery Date(Month/Year) APPENDECTOMY BREAST REDUCTION laparoscopic hysterectomy, ovaries remai n age 39 Myomectomy
== END 2025-02-25 16:25 | disposition home or self-care (01) ==
LOC: HO.MAMMO 16:24
PROVIDERS: PCP Internal Medicine; Visit Provider Internal Medicine
DX: Z12.31 Encounter for screening mammogram for malignant neoplasm of breast (principal)
CPT/HCPCS: 77063; 77067

== ENCOUNTER → 2025-02-25 16:30 | Outpatient (BNV) | payer MEDICARE, MEDICAID, SELFPAY | PROVIDERS: PCP Internal Medicine; Visit Provider Internal Medicine | DX: Z12.31 Encounter for screening mammogram for malignant neoplasm of breast (principal) | CPT/HCPCS: 77063; 77067 ==

== ENCOUNTER 2025-02-28 14:03 | Outpatient (AMB) | payer MEDICARE, OTHER, MEDICAID, SELFPAY ==
--- NOTE | 2025-02-28 14:19 | A.OFFPC_ITS ---
Vital Signs 02/28/25 14:52 Height 5 ft 9 in Weight 252 lb BMI 37.2 BP 136/66 Blood Pressure Location Lt brachial Position Sitting Respiration 16 Pulse 70 Pulse Source Pulse Oximeter Temp 97.1 F Temp Source Temporal Artery Scan Pulse Oximetry (%) 98 Oxygen Delivery Method Room Air Intake Visit Reasons: ED f/u Blood pressure - see comments Tailing Machine Operator Required: No Accompanied by: Self / Same As Patient Allergies dust Allergy (Mild, Uncoded 02/11/25 12:32) sneezing Medication List - Last Reconciled 02/28/25 by Courtney Whyte MD atorvastatin 20 mg PO DAILY baclofen 10 mg PO TID PRN cetirizine (Zyrtec) 10 mg PO DAILY PRN clobetasol 0.05% 1 appl topical BID PRN epinephrine (EpiPen) 0.3 mg (0.3 mL) IM Q20M PRN furosemide 20 mg PO DAILY hydralazine 50 mg PO BID irbesartan 1 tab PO DAILY hznygxaofwgt-epc-zlzo-FA-vit K 45 mg iron- 800 mcg-120 mcg (Bariatric Multivitamins) 1 cap PO DAILY@0600 oxygen-air delivery systems As directed, pt is on c-pap not oxygen trazodone 50 mg PO BEDTIME PRN Tobacco use date assessed: 02/28/25 HPI HPI Comments History of Present Illness Details The patient is a 69 year old female with htn, hld, edison, back pain, spinal stenosis, fibromyalgia, psoriasis, presenting for follow up She was recently evaluated in the ER for HTN. CT head without acute. EKG unremarkable. Underwent turbinate surgery with ENT in August. continues cpap therapy CV: On irbesartan 150mg, hydralazine, atorvastatin, furosemide, trazodone. She has only been taking hydralazine once daily. She is interested in weight loss injection. Referred to pain management. Low back pain. High daily pain levels. Has muscle and joint pain. She is on baclofen with mild relief ROS CONSTITUTIONAL: Denies weight loss, fever and chills. HEENT: Denies changes in vision and hearing. RESPIRATORY: Denies SOB and cough. CV: Denies palpitations and CP GI: Denies abdominal pain, nausea, vomiting and diarrhea. : Denies dysuria and urinary frequency. MSK: Denies new myalgia and joint pain. SKIN: Denies rash and pruritus. NEUROLOGICAL: Denies headache PSYCHIATRIC: Denies recent changes in mood. PHYSICAL EXAM: GENERAL: Alert and oriented x 3. NAD EYES: EOMI. Anicteric. HENT: Moist mucous membranes. No scleral icterus. No cervical lymphadenopathy. LUNGS: Clear to auscultation bilaterally. CARDIOVASCULAR: Regular rate and rhythm. No murmur. No JVD. ABDOMEN: Soft, non-tender +bs EXTREMITIES: No edema. Non-tender. SKIN: No rashes or lesions. Warm. NEUROLOGIC: No focal neurological deficits. CN II-XII grossly intact PSYCHIATRIC: Cooperative. Appropriate mood and affect [facility] Medical History Nasal turbinate hypertrophy Allergic rhinitis EDISON on CPAP Obesity (BMI 30.0-34.9) Spinal stenosis Hyperlipidemia Psoriasis Seasonal allergies Neck arthritis Dysfunction of right rotator cuff Hypertension Low vitamin D level Fibromyalgia Surgical History Hx of nasal septoplasty History of repair of hiatal hernia Status post laparoscopic sleeve gastrectomy History of cataract surgery History of sinus surgery History of partial hysterectomy History of myomectomy History of colonoscopy Hx of breast reduction, elective History of appendectomy Family History Father Unknown family medical history Mother Alive and well Diabetes mellitus Brother Alive and well Brother Alive and well Sister Alive and well Social History Household Members Other:: lives alone Housing: Apartment Alcohol intake: current Alcohol intake frequency: does not drink Patient Tobacco Use Status: Never used Tobacco e-Cigarette/Vaping Use: Never Used service: No Current occupational status: retired 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 [employer] Current occupational exposures/hazards: No Cognitive needs: No Hearing needs: Yes Vision needs: Yes Physical exam (Primary Care) Vital Signs: Last Vital Signs Temp 97.1 F 02/28/25 14:52 Pulse 70 02/28/25 14:52 Resp 16 02/28/25 14:52 BP 136/66 02/28/25 14:52 Pulse Ox 98 02/28/25 14:52 Oxygen Delivery Method Room Air 02/28/25 14:52 BMI result Body Mass Index 37.2 Tobacco/Smoking Status: Tobacco use Status Tobacco use date assessed 02/28/25 02/28/25 14:21 Patient Tobacco Use Status Never used Tobacco 02/28/25 14:21 e-Cigarette/Vaping Use Never Used 02/28/25 14:21 Coding Level of Care Code Est Pt Level 4 (27202) Diagnoses Primary hypertension I10 Hypertension type: primary hypertension Adjustment disorder, unspecified type F43.20 Adjustment disorder type: unspecified type Lumbar radiculopathy M54.16 Assessment & Plan Assessment & Plan (1) Hypertension: Code(s): I10 - Essential (primary) hypertension Category: Medical Qualifiers: Hypertension type: primary hypertension Qualified Code(s): I10 - Essential (primary) hypertension (2) Adjustment disorder, unspecified: Code(s): F43.20 - Adjustment disorder, unspecified Category: Medical Qualifiers: Adjustment disorder type: unspecified type Qualified Code(s): F43.20 - Adjustment disorder, unspecified (3) Lumbar radiculopathy: Code(s): M54.16 - Radiculopathy, lumbar region Category: Medical Plan 69 [facility] Past medical, surgical, social reviewed Insomnia-trazodone ordered. HTN-on current medications Orders: Orders XR DEXA axial skeleton 02/28/25 Courtney Whyte MD E28.39 - Other primary ovarian failure Referrals Medical Nutrition Therapy Referral Courtney Whyte MD G47.33 - Obstructive sleep apnea (adult) (pediatric), Z99.89 - Dependence on other enabling machines and devices Medications: New trazodone 50 mg PO BEDTIME PRN 90 tabs 1RF sleep Courtney Whyte MD blood pressure monitor Large adult arm cuff (automatic) 1 ea 0RF Courtney Whyte MD I10 - Essential (primary) hypertension Zepbound (tirzepatide (weight loss)) for 4 weeks 2.5 mg (0.5 mL) subcut QWEEK 2 mL 1RF NS Courtney Whyte MD E66.9 - Obesity, unspecified, G47.33 - Obstructive sleep apnea (adult) (pediatric), Z99.89 - Dependence on other enabling machines and devices Changed From baclofen 10 mg PO TID 30 days 90 tabs 6RF To baclofen 10 mg PO TID PRN Shahid Kelly MD
--- OUTSIDE RECORDS SUMMARY | 2025-02-28 14:20 | XMS_ITS | Patient Health Record ---
Author Organization [facility] Address [address] [place] [address] Care Team Providers Care Junior Data Analyst Name Role Phone Vanessa Guzmán MD Primary Care Provider Unavail able Lee Zurdo Unavailable [phone] Allergies Allergen (clinical drug ingredient) Drug/Non Drug [...] Problem Status W/U Status Risk Notes Problem 555512914 Encounter for screening for malignant neoplasm of colon (Z12.11) Active confirmed Problem 19875666 Halitosis (R19.6) Active confirmed Problem Encounter for screening for malignant neoplasm of rectum (Z12.12) Active confirmed Plan Of Treatment No Information Insurance Providers Payer Name Payer Address Payer Phone Subscriber Number Group Number Insured Name Patient Relationship to Insured Coverage Start Date Coverage End Date [facility] [employer] [facility] [address] [address] [place], [place] [id number] BRENDON ALTAMIRANO Self - patient is the insured Medical (General) History Medical History History ICD Code Colonoscopy 08-11-2007--negative except f or internal hemorrhoids Hypertension Hyperlipidemia Arthiritis in lower back Sleep apnea Denies AL,DM,CVA,Lung disease,renal dise ase Obesity--enrolled at the [facility] weight loss [facility]--she has lost over 20 pounds since September of 2015 Surgical History Surgery Date(Month/Year) appendectomy breast reduction hysterectomy fibroid tumors removal sinus surgery
--- OUTSIDE RECORDS SUMMARY | 2025-02-28 14:20 | XMS_ITS | Encounter Summary ---
Author Organization [employer] Address [address] [place] [address] [address] [place] [address] Care Team Providers Care Applications Sales Representative Name Role Phone Unavailable Primary Care Provider Unavailabl e Reason for Visit * Reason Onset Date Comments Dr. King case back from lab?? 02/05/2025 Encounter Details Date Type Department Care Team (Late st Contact Info) Description 02/05/2025 Telephone [facility] [address], [place] [phone] Juan King DMD [address], [place] [phone] Dr. King case back from lab?? Social History Tobacco Use Types Packs/Day Years [...] encounter Miscellaneous Notes * Telephone Encounter - Katarzyna Cook - 02/05/2025 11:23 AM EDT Message for Dr. King Patient is calling in checking on status of case for partials if back from lab. Please reach out topatient for update and/or scheduling DR Sent to Clinical support and front end alignment specialist DR documented in this encounter Plan of Treatment Upcoming Encounters Date Type Department Care Team (Late st Contact Info) Description 03/08/2025 1:00 PM EDT Office Visit [facility] [address] [place] [address] Aimee Ivy FNP [address] [place] [address] documented as of this encounter Visit Diagnoses Not on filedocumented in this encounter
--- OUTSIDE RECORDS SUMMARY | 2025-02-28 14:20 | XMS_ITS | Patient Health Record ---
Author Organization [employer] [facility] Address [address] [place] [address] Care Team Providers Care Spool Maker Name Role Phone Geo Hager MD Primary Care Provider González berkowitz Reason For Referral No Information Medications Medication SIG (Take, Route, Frequency, Duration) Notes Start Date End Date Status Vitamin D Active hydroCHLOROthiazide 25 MG Orally Active Benicar 40 MG Orally Active Problems Problem Type SNOMED Code ICD Code Onset Dates Problem Status W/U Status Risk Notes Problem Osteoporosis (24257051) Osteoporosis (733.0) Active confirmed Problem Essential hypertension (09528869) Essential (primary) hypertension (I10) Active confirmed Problem Obesity (085385292) Obesity, unspecified (E66.9) Active confirmed Problem Sleep apnea, unspecified (G47.30) Active confirmed Problem Psoriasis (6383448) Psoriasis, unspecified (L40.9) Active confirmed Plan Of Treatment No Information Insurance Providers Payer Name Payer Address Payer Phone Subscriber Number Group Number Insured Name Patient Relationship to Insured Coverage Start Date Coverage End Date [facility] [address] [place] [address] [id number] BRENDON ALTAMIRANO Self - patient is the insured Medical (General) History Medical History History ICD Code Essential (primary) hypertension Essential (primary) hypertension Sleep apnea, unspecified Osteoporosis Obesity, unspecified Psoriasis, unspecified Surgical History Surgery Date(Month/Year) APPENDECTOMY BREAST REDUCTION laparoscopic hysterectomy, ovaries remai n age 39 Myomectomy
--- OUTSIDE RECORDS SUMMARY | 2025-02-28 14:20 | XMS_ITS | Clinical Summary ---
Author Organization [facility] Address [address] [place] [address] Care Team Providers Care Finisher Polisher Name Role Phone Mika Forrester MD Primary Care Provider [phone] Social History Tobacco Use Types Packs/Day Years [...] age to complete this topic Care Teams Finisher Polisher Relationship Specialty Start Date End Date Mika Forrester MD [address] [place] [address] Dr Edd [place] PCP - General Sanitary Engineer 02/16/19
[2025-02-28 14:52] VITALS: BP 136/66; PULSE 70; RESP 16; TEMP 36.2; O2SAT 98; BMI 37.2
== END 2025-02-28 15:27 | disposition home or self-care (01) ==
LOC: HO.HMCHD 14:04
PROVIDERS: PCP Internal Medicine; Visit Provider Internal Medicine
DX: I10 Essential (primary) hypertension (principal); F43.20 Adjustment disorder, unspecified; M54.16 Radiculopathy, lumbar region

== ENCOUNTER → 2025-02-28 14:03 | Outpatient (BNVA) | payer MEDICARE, OTHER, SELFPAY | PROVIDERS: PCP Internal Medicine; Visit Provider Internal Medicine | DX: I10 Essential (primary) hypertension (principal); F43.20 Adjustment disorder, unspecified; M54.16 Radiculopathy, lumbar region; G47.00 Insomnia, unspecified; Z79.899 Other long term (current) drug therapy | CPT/HCPCS: 99212 ==

== ENCOUNTER 2025-03-05 09:17 | Outpatient (AMB) | payer MEDICARE, MEDICAID, SELFPAY ==
[2025-03-05 09:29] VITALS: BMI 37.0
--- NOTE | 2025-03-05 09:29 | A.OFFVIS_ITS ---
VS Expanded 03/05/25 09:29 03/05/25 20:26 Height 5 ft 9 in 5 ft 9 in Weight 250 lb 7.122 oz 250 lb BMI 37.0 36.9 Intake Visit Reasons: Obstructive sleep apnea (adult) Allergies dust Allergy (Mild, Uncoded 02/11/25 12:32) sneezing Nutrition Presentation Details: Pt presents for MNT for obesity. Pt also has sleep apnea Pt has Hx of sleeve gastrectomy in 06/2019, wt hx from record wt at 208 lbs (1 yr post surgery), has gradually increased weight, now to 250lbs. Pt reports lack of meal routine , increased appetite, particularly at night Has tried participating in physical activity in the past , currently not participating in physical activity food frequency fish: 0-1x/wk fruits: 0-1/d ve-4 x/wk dairy : 3+/d fluids: water, juices, tea, coffee ,smoothies enjoys baking denies diarrhea/constipation/vomiting BS Monitoring Most Recent Diabetes Results: Cholesterol, (<200) 161 mg/dL 11/28/24 HDL Cholesterol, (>40) 51 mg/dL 11/28/24 Triglycerides, (<150) 72 mg/dL 11/28/24 Creatinine, (0.5-1.4) 0.80 mg/dL 02/11/25 BUN, (9-16) 12 mg/dL 02/11/25 Sodium, (135-145) 143 mmol/L 02/11/25 Potassium, (3.3-5.1) 4.1 mmol/L 02/11/25 Chloride, (96-108) 106 mmol/L 02/11/25 Carbon Dioxide, (22-29) 28 mmol/L 02/11/25 Calcium, (8.4-10.2) 9.3 mg/dL 02/11/25 AST, (5-31) 29 U/L 02/11/25 ALT, (0-31) 20 U/L 02/11/25 Total Protein, (6.5-8.0) 7.4 g/dL 02/11/25 Albumin, (3.5-5.0) 4.3 g/dL 02/11/25 UTT-Mzkmmnq-Zb.Jeor Equation Height: 5 ft 9 in Weight: 250 lb Resting Metabolic Rate: 1727.74 Calculated Activity Level: Sedentary Calories Needed to Maintain Weight: 2113.29 Diagnosis Nutrition problem #1: overweight/obesity As related to (etiology) #1: diagnosis As evidenced by (sign/symptom) #1: high BMI (36.9 (03/25)) [facility] Medical History Nasal turbinate hypertrophy Allergic rhinitis ZURI on CPAP Obesity (BMI 30.0-34.9) Spinal stenosis Hyperlipidemia Psoriasis Seasonal allergies Neck arthritis Dysfunction of right rotator cuff Hypertension Low vitamin D level Fibromyalgia Surgical History Hx of nasal septoplasty History of repair of hiatal hernia Status post laparoscopic sleeve gastrectomy History of cataract surgery History of sinus surgery History of partial hysterectomy History of myomectomy History of colonoscopy Hx of breast reduction, elective History of appendectomy Family History Father Unknown family medical history Mother Alive and well Diabetes mellitus Brother Alive and well Brother Alive and well Sister Alive and well Social History Household Members Other:: lives alone Housing: Apartment Alcohol intake: current Alcohol intake frequency: does not drink Patient Tobacco Use Status: Never used Tobacco e-Cigarette/Vaping Use: Never Used service: No Current occupational status: retired 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 [employer] Current occupational exposures/hazards: No Cognitive needs: No Hearing needs: Yes Vision needs: Yes Assessment & Plan Assessment & Plan (1) Obesity (BMI 30.0-34.9): Comment: with sleep apnea Code(s): E66.9 - Obesity, unspecified Category: Medical Plan: Wt: 114 Kg ( 03/25 ) Est kcal needs as per MSJ: 2100 (40% carb, 30% protein/fat) Est fluid needs as per 25-30 ml/d: 3420 Est prot per day as per 1 g/kg bw: 115 Recommend fiber intake : 8-10 g per day and gradually increase to 25-28 g per day for women and 35-38 g for men or as tolerated Recommend sodium intake per day : less than 2300 mg Educated patient on: ( R = reviewed V = verbalizes understanding N/R = needs review N/A = not applicable * Food sources of carbohydrate, adequate serving sizes and its role in various health conditions: R V N/R * Differences between complex carbohydrates a simple carbohydrates, role of fiber in diet: R * Lean protein sources of foods: R V NR * Differences between types of fats and role in diet (mono on saturated fat fatty acids, saturated fatty acids, trans fats): R V N/R * Food sources of sodium in salt and healthy modifications for heart health in kidney health: R V R/V * Vitamins and minerals: R V N/R * Healthy plate method concept: R * Physical activity: Benefits a precaution: R Patient Instructions: Choose low fat food choices (fruit in place of pastries, coconut milk /water vs cream , compare amount of fat in foods choices Work on mindful eating next topic review total carb intake Coding Level of Care Code Nutr Indiv Intake (69543) Diagnoses Obesity (BMI 30.0-34.9) E66.9 Time Spent (min) 30
--- OUTSIDE RECORDS SUMMARY | 2025-03-05 09:39 | XMS_ITS | Clinical Summary ---
Author Organization [facility] ity Address [address] [place] [address] Care Team Providers Care Hand Hose Cutter Name Role Phone Mika Forrester MD Primary Care Provider Social History Tobacco Use Types Packs/Day Years [...] age to complete this topic Care Teams Hand Hose Cutter Relationship Specialty Start Date End Date Mika Forrester MD [address] [place] [address] Dr Edd [place] PCP - General Commercial Escrow Assistant 02/16/19
--- OUTSIDE RECORDS SUMMARY | 2025-03-05 09:39 | XMS_ITS | Encounter Summary ---
Author Organization [employer] Address [address] [place] [address] [address] [place] [address] Care Team Providers Care Operations Supervisor 2Nd Shift Name Role Phone Unavailable Primary Care Provider Unavailabl e Reason for Visit * Reason Onset Date Comments Dr. King case back from lab?? 02/05/2025 Encounter Details Date Type Department Care Team (Late st Contact Info) Description 02/05/2025 Telephone [facility] ADULT DENTAL [address] [place], [place] [phone] Juan King DMD [address] [place], [place] [phone] Dr. King case back from lab?? Social [...] DR Sent to Clinical support and front desk coordinator DR documented in this encounter Plan of Treatment Upcoming Encounters Date Type Department Care Team (Late st Contact Info) Description 03/08/2025 1:00 PM EDT Office Visit [facility] MEDICINE [address] [place] [address] Aimee Ivy FNP [address] [place] [address] documented as of this encounter Visit Diagnoses Not on filedocumented in this encounter
--- OUTSIDE RECORDS SUMMARY | 2025-03-05 09:39 | XMS_ITS | Patient Health Record ---
Author Organization [employer] [facility] Address [address] [place] [address] Care Team Providers Care Powerhouse Operator Name Role Phone Geo Hager MD Primary Care Provider González berkowitz Reason For Referral No Information Medications Medication SIG (Take, Route, Frequency, Duration) Notes Start Date End Date Status Vitamin D Active hydroCHLOROthiazide 25 MG Orally Active Benicar 40 MG Orally Active Problems Problem Type SNOMED Code ICD Code Onset Dates Problem Status W/U Status Risk Notes Problem Osteoporosis (85168914) Osteoporosis (733.0) Active confirmed Problem Essential hypertension (71563298) Essential (primary) hypertension (I10) Active confirmed Problem Obesity (542726217) Obesity, unspecified (E66.9) Active confirmed Problem Sleep apnea (00753228) Sleep apnea, unspecified (G47.30) Active confirmed Problem Psoriasis (5282301) Psoriasis, unspecified (L40.9) Active confirmed Plan Of Treatment No Information Insurance Providers Payer Name Payer Address Payer Phone Subscriber Number Group Number Insured Name Patient Relationship to Insured Coverage Start Date Coverage End Date [facility] [address] [place] [address] [id number] BRENDON ALTAMIRANO Self - patient is the insured Medical (General) History Medical History History ICD Code Essential (primary) hypertension Essential (primary) hypertension Sleep apnea, unspecified Osteoporosis Obesity, unspecified Psoriasis, unspecified Surgical History Surgery Date(Month/Year) APPENDECTOMY BREAST REDUCTION laparoscopic hysterectomy, ovaries remai n age 39 Myomectomy
--- OUTSIDE RECORDS SUMMARY | 2025-03-05 09:39 | XMS_ITS | Patient Health Record ---
Author Organization [facility] Address [address] [place] [address] Care Team Providers Care Grievance And Appeals Specialist Name Role Phone Vanessa Guzmán MD Primary Care Provider Unavail able Lee Zurdo Unavailable [phone] Allergies Allergen (clinical drug ingredient) Drug/Non Drug [...] Problem Status W/U Status Risk Notes Problem 937069961 Encounter for screening for malignant neoplasm of colon (Z12.11) Active confirmed Problem 17523532 Halitosis (R19.6) Active confirmed Problem Encounter for screening for malignant neoplasm of rectum (Z12.12) Active confirmed Plan Of Treatment No Information Insurance Providers Payer Name Payer Address Payer Phone Subscriber Number Group Number Insured Name Patient Relationship to Insured Coverage Start Date Coverage End Date [facility] [employer] [facility] [address] [address] [place], [place] [id number] BRENDON ALTAMIRANO Self - patient is the insured Medical (General) History Medical History History ICD Code Colonoscopy 08-11-2007--negative except f or internal hemorrhoids Hypertension Hyperlipidemia Arthiritis in lower back Sleep apnea Denies [place],DM,CVA,Lung disease,renal dise ase Obesity--enrolled at the [facility]--she has lost over 20 pounds since September of 2015 Surgical History Surgery Date(Month/Year) appendectomy breast reduction hysterectomy fibroid tumors removal sinus surgery
[2025-03-05 20:26] VITALS: BMI 36.9
== END 2025-03-05 10:22 | disposition home or self-care (01) ==
PROVIDERS: PCP Internal Medicine; Visit Provider Dietitian, Registered
DX: E66.9 Obesity, unspecified (principal)

== ENCOUNTER → 2025-03-05 09:17 | Outpatient (BNVA) | payer MEDICARE, MEDICAID, SELFPAY | PROVIDERS: PCP Internal Medicine; Visit Provider Dietitian, Registered | DX: E66.9 Obesity, unspecified (principal); Z71.3 Dietary counseling and surveillance | CPT/HCPCS: 97802 ==

== ENCOUNTER 2025-03-09 09:36 | Outpatient (REF) | payer MEDICARE, OTHER, SELFPAY ==
--- OUTSIDE RECORDS SUMMARY | 2025-03-09 09:38 | XMS_ITS | Patient Health Record ---
Author Organization [employer] [facility] Address [address] [place] [address] Care Team Providers Care Electronics Assembler And Tester Name Role Phone Geo Hager MD Primary Care Provider González berkowitz Reason For Referral No Information Medications Medication SIG (Take, Route, Frequency, Duration) Notes Start Date End Date Status Vitamin D Active hydroCHLOROthiazide 25 MG Orally Active Benicar 40 MG Orally Active Problems Problem Type SNOMED Code ICD Code Onset Dates Problem Status W/U Status Risk Notes Problem Osteoporosis (89976734) Osteoporosis (733.0) Active confirmed Problem Essential hypertension (53023226) Essential (primary) hypertension (I10) Active confirmed Problem Obesity, unspecified (E66.9) Active confirmed Problem Sleep apnea (61531833) Sleep apnea, unspecified (G47.30) Active confirmed Problem Psoriasis (8461028) Psoriasis, unspecified (L40.9) Active confirmed Plan Of Treatment No Information Insurance Providers Payer Name Payer Address Payer Phone Subscriber Number Group Number Insured Name Patient Relationship to Insured Coverage Start Date Coverage End Date [facility] [address] [place] [address] [id number] BRENODN ALTAMIRANO Self - patient is the insured Medical (General) History Medical History History ICD Code Essential (primary) hypertension Essential (primary) hypertension Sleep apnea, unspecified Osteoporosis Obesity, unspecified Psoriasis, unspecified Surgical History Surgery Date(Month/Year) APPENDECTOMY BREAST REDUCTION laparoscopic hysterectomy, ovaries remai n age 39 Myomectomy
--- OUTSIDE RECORDS SUMMARY | 2025-03-09 09:38 | XMS_ITS | Patient Health Record ---
Author Organization [facility] Address [address] [place] [address] Care Team Providers Care Newspaper Editor Name Role Phone Vanessa Guzmán MD Primary Care Provider Unavail able Zurdo Howard Unavailable [phone] Allergies Allergen (clinical drug ingredient) Drug/Non Drug [...] Problem Status W/U Status Risk Notes Problem 489144626 Encounter for screening for malignant neoplasm of colon (Z12.11) Active confirmed Problem 32555810 Halitosis (R19.6) Active confirmed Problem Screening for malignant neoplasm of rectum (063666064) Encounter for screening for malignant neoplasm of rectum (Z12.12) Active confirmed Plan Of Treatment No Information Insurance Providers Payer Name Payer Address Payer Phone Subscriber Number Group Number Insured Name Patient Relationship to Insured Coverage Start Date Coverage End Date [facility] [address] [address] [place], [place] [id number] [phone] [id number] BRENDON ALTAMIRANO Self - patient is the insured Medical (General) History Medical History History ICD Code Colonoscopy 08-11-2007--negative except f or internal hemorrhoids Hypertension Hyperlipidemia Arthiritis in lower back Sleep apnea Denies [place],DM,CVA,Lung disease,renal dise ase Obesity--[facility] [place] [facility] [place] [facility]--she has lost over 20 pounds since September of 2015 Surgical History Surgery Date(Month/Year) appendectomy breast reduction hysterectomy fibroid tumors removal sinus surgery
[2025-03-09 09:52] LABS: MANUAL DIFF FLAG NO
[2025-03-09 10:59] LABS: Hematocrit 39.7 % (37.0-47.0); Hemoglobin 12.8 g/dl (12.0-16.0); Imm Gran Abs Auto 0.01 X10*3/uL (0.00-0.03); Imm Gran Pct Auto 0.2 % (0.0-0.4); Lymphocytes Absolute Auto 1.2 X10*3/uL (1.2-4.9); Mean Corpuscular HGB Conc 32.2 g/dl (31.0-35.0); Mean Corpuscular Hemoglobin 27.5 pg (27.0-33.0); Mean Corpuscular Volume 85.4 fL (80.0-98.0); NRBC Abs Auto 0.000 X10*3/uL (0.0-0.012); NRBC Pct Auto 0.0 /100WBC (0.0-0.2); Platelet Count 165 X10*3/uL (160-400); Red Blood Count 4.65 X10*6/uL (4.20-5.50); White Blood Count 4.6 X10*3/uL (4.8-10.8)
[2025-03-09 11:31] LABS: Anion Gap 12 (12-20); Blood Urea Nitrogen 19 mg/dL (9-16); Calcium 9.0 mg/dL (8.4-10.2); Carbon Dioxide 29 mmol/L (22-29); Chloride 108 mmol/L (96-108); Cholesterol 160 mg/dL (<200); Estimated Glomerular Filt Rate > 60; HDL Cholesterol 49 mg/dL (>40); Potassium 3.9 mmol/L (3.3-5.1); Sodium 145 mmol/L (135-145); Triglycerides 64 mg/dL (<150)
[2025-03-11 08:34] LABS: ~HepC Num1 0.09 S/CO (0.00-0.79); ~Hepatitis C Antibody Nonreactive (Nonreactive)
== END 2025-03-09 09:37 | disposition home or self-care (01) ==
LOC: HO.LAB 09:36
PROVIDERS: PCP Nurse Practitioner Family; Visit Provider Nurse Practitioner Family
DX: I1A.0 Resistant hypertension (principal); Z11.59 Encounter for screening for other viral diseases; E66.812 Obesity, class 2; Z68.36 Body mass index [BMI] 36.0-36.9, adult
CPT/HCPCS: 36415; 80048; 80061; 85025; 86803

== ENCOUNTER 2025-03-15 13:43 | Outpatient (REF) | payer MEDICARE, OTHER, SELFPAY ==
--- NOTE | ~2025-03-15 | XR_ITS ---
EXAMINATION: XR SACRUM AND COCCYX CLINICAL INFORMATION: fell onto coccyx. COMPARISON: Correlated to lumbar spine x-ray dated November 12, 2024. TECHNIQUE: AP and lateral views FINDINGS: There is a cortical irregularity with anterior displacement at the sacrococcyx junction. Spondylosis L4-5 and L5-S1 with grade 1 anterolisthesis at L4-5 and L3-4 levels. XR/XR sacrum coccyx min 2V IMPRESSION: Anteriorly displaced fracture, sacrococcyx junction. Electronically signed by: Murphy Motta MD 03/15/2025 02:31 PM EDT
--- NOTE | ~2025-03-15 | XR_ITS ---
EXAMINATION: XR LUMBOSACRAL SPINE CLINICAL INFORMATION: lumbar coccyx pain after fall COMPARISON: November 12, 2024 TECHNIQUE: AP and lateral views FINDINGS: Multilevel marginal osteophyte formation and syndesmophyte formation throughout the axial skeleton. Decreased intervertebral disc height at L4-5 and L5-S1. Grade 1 anterolisthesis L3-4 and L4-5, unchanged. Cortical irregularity at the sacrococcyx junction. No lytic or blastic lesions. XR/XR lumbar spine 2-3V IMPRESSION: Concerning displaced fracture, sacrococcyx. Multilevel thoracolumbar spondylosis. Grade 1 anterolisthesis L3-4 and L4-5. Electronically signed by: Murphy Motta MD 03/15/2025 02:27 PM EDT
--- OUTSIDE RECORDS SUMMARY | 2025-03-15 13:45 | XMS_ITS | Clinical Summary ---
Author Organization [facility] Address [address] [place] [address] Phone Care Team Providers Care Manager Care Management Name Role Phone Courtney Whyte MD Primary Care Provider [phone] Social History Tobacco Use Types Packs/Day Years Used Date Smoking Tobacco: Never Assessed Comments Unknown Sex and Gender Information Value Date Recorded Sex Assigned at Not on file Legal Sex Female 11:29 AM EST Gender Identity Not on file Sexual Orientation Not on file Plan of Treatment Upcoming Encounters Date Type Department Care Team (Late st Contact Info) Description 05/07/2025 9:30 AM EDT Office Visit [facility] [address] [address] Christopher Tariq, DPM [address] [address] Health Maintenance Due Date Last Done Comments Breast Cancer Screening 1955 DTaP,Tdap,and Td Vaccines (1 - Tdap) 1974 Pneumococcal Vaccine: 50+ Ye ars (1 of 1 - PCV) 2005 Zoster Vaccines (1 of 2) 2005 COVID-19 Vaccine ( - 2023-2 5 season) 2024 Depression Screening 08/01/2024 Colorectal Cancer Screening: Colonoscopy 03/07/2025 Falls Risk Assessment 03/07/2025 Hepatitis C Screening 03/07/2025 Medicare Annual Wellness Visit 03/07/2025 Osteoporosis Screening (Bone Density Screening) 03/07/2025 Social Influencers of Health Screening 03/07/2025 Influenza Vaccine (#1) 2025 RSV Immunization Adult [...] patient's age to complete this topic [place] [address] MEDICARE MEDICAID - [place] Care Teams Manager Care Management Relationship Specialty Start Date End Date Courtney Whyte MD [address] [place] [id number] PCP - General Internal Medicine 03/07/25
--- OUTSIDE RECORDS SUMMARY | 2025-03-15 13:45 | XMS_ITS | Patient Health Record ---
Author Organization [facility] Address [address] [place] [address] Care Team Providers Care Experienced Truck Driver Name Role Phone Vanessa Guzmán MD Primary Care Provider Unavail able Lee Zurdo Unavailable [phone] Allergies Allergen (clinical drug ingredient) Drug/Non Drug [...] Problem Status W/U Status Risk Notes Problem [id number] Encounter for screening for malignant neoplasm of colon (Z12.11) Active confirmed Problem 66901768 Halitosis (R19.6) Active confirmed Problem Encounter for screening for malignant neoplasm of rectum (Z12.12) Active confirmed Plan Of Treatment No Information Insurance Providers Payer Name Payer Address Payer Phone Subscriber Number Group Number Insured Name Patient Relationship to Insured Coverage Start Date Coverage End Date [facility] [email or web address] [facility] [address] [address] [place], [place] [id number] BRENDON ALTAMIRANO Self - patient is the insured Medical (General) History Medical History History ICD Code Colonoscopy 08-11-2007--negative except f or internal hemorrhoids Hypertension Hyperlipidemia Arthiritis in lower back Sleep apnea Denies [place],DM,CVA,Lung disease,renal dise ase Obesity--enrolled at the [facility]--she has lost over 20 pounds since September of 2015 Surgical History Surgery Date(Month/Year) appendectomy breast reduction hysterectomy fibroid tumors removal sinus surgery
--- OUTSIDE RECORDS SUMMARY | 2025-03-15 13:45 | XMS_ITS | Patient Health Record ---
Author Organization [employer] [facility] Address [address] [place] [address] Care Team Providers Care Grain Drier Name Role Phone Geo Hager MD Primary Care Provider González berkowitz Reason For Referral No Information Medications Medication SIG (Take, Route, Frequency, Duration) Notes Start Date End Date Status Vitamin D Active hydroCHLOROthiazide 25 MG Orally Active Benicar 40 MG Orally Active Problems Problem Type SNOMED Code ICD Code Onset Dates Problem Status W/U Status Risk Notes Problem Osteoporosis (65068390) Osteoporosis (733.0) Active confirmed Problem Essential hypertension (69230696) Essential (primary) hypertension (I10) Active confirmed Problem Obesity (286674450) Obesity, unspecified (E66.9) Active confirmed Problem Sleep apnea (07301686) Sleep apnea, unspecified (G47.30) Active confirmed Problem Psoriasis (2093658) Psoriasis, unspecified (L40.9) Active confirmed Plan Of Treatment No Information Insurance Providers Payer Name Payer Address Payer Phone Subscriber Number Group Number Insured Name Patient Relationship to Insured Coverage Start Date Coverage End Date [facility] [address] [place] [address] [phone] [id number] BRENDON ALTAMIRANO Self - patient is the insured Medical (General) History Medical History History ICD Code Essential (primary) hypertension Essential (primary) hypertension Sleep apnea, unspecified Osteoporosis Obesity, unspecified Psoriasis, unspecified Surgical History Surgery Date(Month/Year) APPENDECTOMY BREAST REDUCTION laparoscopic hysterectomy, ovaries remai n age 39 Myomectomy
--- OUTSIDE RECORDS SUMMARY | 2025-03-15 13:45 | XMS_ITS | Encounter Summary ---
Author Organization [employer] Address [address] [place] [address] Care Team Providers Care Orthopaedic Nurse Name Role Phone Aimee Ivy [facility] Primary Care Provider [phone] Encounter Details Date Type Department Care Team (Latest Contact Info) Description 03/15/2025 Travel Social History Tobacco Use Types Packs/Day Years Used Date Smoking Tobacco: Never Passive Smoke Exposure: Never Smokeless Tobacco: Never Comments:Exposed to second s moke Alcohol Use Standard Drinks/Week Comments Never 0 (1 standard drink = 0.6 oz pur e alcohol) Depression Answer Date Recorded Patient Health Questionnaire-9 Score 9 03/08/2025 Patient Health Questionnaire-9 Score 9 03/08/2025 Last PHQ-9: Questionnaire Data Not on file 0 03/08/2025 Housing Stability Answer Date Recorded What is your housing situation today? I have josh rodas 03/01/[address] you li ve. Do you have problems with any of the following? None of the above 03/01/2025 Food Insecurity Answer Date Recorded Within the past 12 months, y ou worried that your food would run out before you got money to buy more: Never True 03/01/2025 Within the past 12 months,th e food you bought just didn't last and you didn't have enough money to get more: Never True 08/2024 Transportation Answer Date Recorded In the past 12 months, has l ack of transportation kept you from medical appts, meetings, work or from getting things needed for daily living? No 03/01/2025 Utilities Answer Date Recorded In the past 12 months, has t he electric, gas, oil or water company threatened to shut off services in your home? No 03/01/2025 Depression Answer Date Recorded Patient Health Questionnaire-2 Score 0 03/08/2025 Internet Access Answer Date Recorded Internet Access Q1 No 03/08/2025 Internet Access Q2 Not on file 03/08/2025 Comments Unknown Sex and Gender Information Value Date Recorded Sex Assigned at Female 11/09/2024 10:09 AM EDT Legal Sex Female 10:01 AM EDT Gender Identity Female 11/09/2024 10:09 AM EDT Sexual Orientation Straight 11/09/2024 10 :09 AM EDT documented as of this encounter Plan of Treatment Upcoming Encounters Date Type Department Care Team (Late st Contact Info) Description 03/26/2025 9:00 AM EDT Office Visit [facility] MEDICINE [address] [place] [address] Aimee Ivy FNP [address] [place] [address] documented as of this encounter Visit Diagnoses Not on filedocumented in this encounter Additional Health Concerns Assessment Noted Time PHQ-9 Depression Total Score: 9 03/08/20 25 1:13 PM EDT documented as of this encounter Care Teams Orthopaedic Nurse Relationship Specialty Start Date End Date Aimee Ivy FNP [address] [place] [address] PCP - General Family Medicine 03/08/25 documented as of this encounter
== END 2025-03-15 13:44 | disposition home or self-care (01) ==
LOC: HO.HHCX 13:43
PROVIDERS: Visit Provider Nurse Practitioner Family
DX: M53.3 Sacrococcygeal disorders, not elsewhere classified (principal)
CPT/HCPCS: 72100; 72220

== ENCOUNTER → 2025-03-15 13:44 | Outpatient (BNV) | payer MEDICARE, MEDICAID, SELFPAY | PROVIDERS: Visit Provider Radiology Diagnostic Radiology | DX: S32.2XXA Fracture of coccyx, initial encounter for closed fracture (principal) | CPT/HCPCS: 72100; 72220 ==

== ENCOUNTER 2025-04-02 18:19 | Outpatient (REF) | payer MEDICARE, OTHER, SELFPAY ==
--- OUTSIDE RECORDS SUMMARY | 2025-04-02 10:00 | XMS_ITS | Encounter Summary ---
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; Constipation, unspecified constipation type; Perineal pain in female; Incontinence in female Social History Tobacco Use Types Packs/Day Years [...] Sign Reading Time Taken Comments Blood Pressure 162/98 04/02/2025 10:03 AM EDT Pulse 83 04/02/2025 10:03 AM EDT Temperature 36.8 C (98.3 F) 04/02/2025 10:03 AM EDT Respiratory Rate 16 04/02/2025 10:03 AM EDT Oxygen Saturation 98% 04/02/2025 10:03 AM EDT Inhaled Oxygen Concentration - - Weight 114 kg (250 lb 4 oz) 04/02/2025 10:03 AM EDT Height 175.3 cm (5' 9 ) 04/02/2025 10:03 AM EDT Body Mass Index 36.96 04/02/2025 10:03 AM EDT documented in this encounter Plan of Treatment Upcoming Encounters Date Type Department Care Team (Late st Contact Info) Description 04/15/2025 9:15 AM EDT Office Visit [facility] [address], [place] [phone] Aimee Ivy FNP [address] [place] [address] Scheduled Orders Name Type Priority Associated Diagnoses Orde r Schedule Bacterial Vaginosis Panel Microbiology Routine Vaginal itching Ordered: 04/02/2025 documented as of this encounter Visit Diagnoses Diagnosis Vaginal itching- Primary Pruritus of genital organs Lichen sclerosus Circumscribed scleroderma Uncontrolled hypertension Coccyx pain Other disorder of coccyx 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
--- OUTSIDE RECORDS SUMMARY | 2025-04-02 18:23 | XMS_ITS | Encounter Summary ---
Author Organization [employer] Address [address] [place] [address] Care Team Providers Care Infrastructure Analyst Name Role Phone Aimee Ivy ENTERTAINMENT USHER Primary Care Provider [phone] Encounter Details Date Type Department Care Team (Latest Contact Info) Description 04/02/2025 Travel Social History Tobacco Use Types Packs/Day [...] Description 04/15/2025 9:15 AM EDT Office Visit [facility] [address] [place] [address] Aimee Ivy FNP [address] [place] [address] documented as of this encounter Visit Diagnoses Not on filedocumented in this encounter Additional Health Concerns Assessment Noted Time PHQ-9 Depression Total Score: 9 03/08/20 25 1:13 PM EDT documented as of this encounter Care Teams Infrastructure Analyst Relationship Specialty Start Date End Date Aimee Ivy FNP [address] [place] [address] PCP - General Family Medicine 03/08/25 documented as of this encounter
--- OUTSIDE RECORDS SUMMARY | 2025-04-02 18:23 | XMS_ITS | Clinical Summary ---
Author Organization [employer] Address [address] [place] [address] Care Team Providers Care Bench Jeweler Name Role Phone Aimee Ivy REFRACTIVE SURGEON Primary Care Provider [phone] Allergies Active Allergy Reactions Criticality Noted Date Comments Dust Mite Extract Unknown 12/06/2024 Levonorgestrel-Ethinyl Estrad Unknown 2024 Medications Skyrizi Pen 150 MG/ML solution auto-injector INJECT ONE PEN UNDER THE SKIN EVERY 12 WEEKS. Active baclofen (Lioresal) 10 MG tablet Take 1 tablet by mouth every 6 (six) hours during the day. 11/08/19 25 Active hydrALAZINE (Apresoline) 50 MG tablet Take 1 tablet by mouth 2 times daily. Active fluticasone (Flonase) 50 MCG/ACT nasal spray USE 1 SPRAY INTO BOTH NOSTRILS TWICE A DAY Active atorvastatin (Lipitor) 20 MG tablet Take 20 mg by mouth Once per day. Active Blood Pressure kitIndications: Resistant hypertension 1 Units 2 times daily. 1 kit 03/08/20 25 Active polyethylene glycol, PEG, 3350 (MiraLax) 17 GM/SCOOP powderIndicatio ns:Other constipation Take 17 g by mouth if needed each day (constipatio n). 510 g 03/15/20 25 025 Active senna-docusate sodium (Senokot-S) 8.6-50 MG tablet Take 2 tablets by mouth if needed each day for constipation . 60 tablet 03/22/20 25 025 Active Blood Pressure Monitoring (Adult Blood Pressure Cuff Lg) kitIndications: Hypertension, unspecified type 1 kit if needed each day (extra large bp cuff please). 1 kit 03/22/20 Active clobetasol (Temovate) 0.05 % ointment Apply topically in the morning and in the evening. Do all this for 14 days. 15 g 04/02/20 25 Active irbesartan (Avapro) 150 MG tablet Take 1 tablet by mouth Once per day. Discontinued(In effective) olmesartan (Benicar) 40 MG tablet Orally 025 Discontinued( erapy completed) predniSONE (Deltasone) 20 MG tablet Take 2 tablets by mouth Once per day. 10/19/19 025 Discontinued( erapy completed) gabapentin (Neurontin) 300 MG capsule take 1 capsule by mouth everyday at bedtime 10/19/19 Discontinued furosemide (Lasix) 40 MG tablet Take 1 tablet by mouth 2 times daily. Discontinued(Ot her) clobetasol (Temovate) 0.05 % ointment 08/01/19 24 025 Discontinued(Re order (will not trigger notification to Pharmacy)) celecoxib (CeleBREX) 50 MG capsule Take 50 mg by mouth 2 times daily. 025 Discontinued( erapy completed) furosemide (Lasix) 20 MG tablet 20 mg Once per day. Discontinued(In effective) traMADol (Ultram) 50 MG tabletIndicatio ns:Coccyx pain Take 1 tablet (50 mg) by mouth every 8 (eight) hours if needed for severe pain for up to 5 days. 5 tablet 03/15/20 25 025 traMADol (Ultram) 50 MG tabletIndicatio ns:Coccyx pain Take 1 tablet (50 mg) by mouth every 8 (eight) hours if needed for severe pain for up to 5 days. 15 tablet 03/22/20 25 025 Active Problems Problem Noted Date Diagnosed Date Perineal pain in female 04/02/2025 Lichen sclerosus 04/02/2025 Vaginal itching 04/02/2025 Incontinence in female 04/02/2025 Rectal or anal pain 03/26/2025 Constipation 03/22/2025 Assessment & Plan (03/22/2025 12:08 PM EDT): Trial senna, Start with 1 tablet in am , if no benefit increase to two tablets Coccyx pain 03/15/2025 Assessment & Plan (03/22/2025 12:08 PM EDT): Tolerating tramadol, may continue Other constipation 03/15/2025 Assessment & Plan (03/15/2025 2:57 PM EDT): Incidental finding on x-ray, initiate miralax prn Closed fracture of sacrum and coccyx with nonuni on 03/15/2025 Assessment & Plan (03/22/2025 12:08 PM EDT): Referral to [facility] Assessment & Plan (03/15/2025 3:00 PM EDT): Pt with possible displaced coccyx fracture. 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; Note: Date Diagnosed: 06/30/2022 11:33 AM (388.72) Otalgia, left ear; Note: Date Diagnosed: 06/30/2022 11:35 AM (H92.02) Arthralgia of left temporomandibular joint 06/30 Overview (02/22/2025): Arthralgia of left temporomandibular joint; Note: Date Diagnosed: 06/30/2022 11:35 AM (M26.622) Sensorineural hearing loss (SNHL) of both ears 0 12/03/2020 Overview (02/22/2025): Sensorineural hearing loss, bilateral; Note: Date Diagnosed: 12/03/2020 4:33 PM (H90.3) Headache 02/02/2019 Overview (02/22/2025): Headache, unspecified; Note: Changed from R51 to R51.9 (12/03/2020 4:50 PM) , Date Diagnosed: 02/02/2019 12:11 PM (R51) Chronic rhinitis 11/03/2018 Overview (12/06/2024): Chronic rhinitis; Note: Date Diagnosed: 11/03/2018 2:33 PM (J31.0) Obstructive sleep apnea syndrome 11/03/2018 Overview (02/22/2025): Obstructive sleep apnea (adult) (pediatric); Note: Date Diagnosed: 11/03/2018 2:35 PM (G47.33) Assessment & Plan (03/15/2025 3:02 PM EDT): Pt reports inability to use mask nightly due to acute injury which impacts how pt can sleep Rn team will call sleep medicine team Hypertrophy of nasal turbinates 11/03/2018 Overview (02/22/2025): Hypertrophy of nasal turbinates; Note: Date Diagnosed: 11/03/2018 2:33 PM (J34.3) Nasal congestion 11/03/2018 Overview (02/22/2025): Nasal congestion; Note: Date Diagnosed: 11/03/2018 2:33 PM (R09.81) Uncontrolled hypertension 11/03/2018 Overview (03/26/2025 12:22 PM EDT): >>OVERVIEW FOR ESSENTIAL HYPERTENSION WRITTEN ON 12/06/2024 1:30 PM BY PARRISH YANES Essential (primary) hypertension; Note: Date Diagnosed: 11/03/2018 2:33 PM (I10) Assessment & Plan (03/26/2025 12:22 PM EDT): >>ASSESSMENT AND PLAN FOR ESSENTIAL HYPERTENSION WRITTEN ON 03/15/2025 3:03 PM BY CHELSEA BOYD NP Above goal, picked up bp cuff today, Todays visit was focused primarily on fracture and pain management Assessment & Plan (03/22/2025 12:07 PM EDT): At goal with manual bp, Continue current regimen XL bp cuff ordered Encounters Date Type Department Care Team Description 04/02/2025 10:00 AM EDT Office Visit [facility] [address] [place] [phone] Aimee Ivy FNP Vaginal itching (Primary Dx); Lichen sclerosus; Uncontrolled hypertension; Coccyx pain; 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; Constipation, unspecified constipation type; Perineal pain in female; Incontinence in female 04/02/2025 Travel 03/26/2025 9:00 AM EDT Office Visit [facility] [address] [place] [phone] Aimee Ivy FNP Primary hypertension (Primary Dx); Constipation, unspecified constipation type; 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; Rectal or anal pain; Obstructive sleep apnea syndrome 03/26/2025 Travel 03/25/[address] [phone] Aimee Ivy FNP Referral-Sleep Medicine; Referral-Ortho 03/22/2025 10:20 AM EDT Office Visit [facility] [address] [place] [phone] Chelsea Boyd NP Hypertension, unspecified type (Primary Dx); Constipation, unspecified constipation type; Coccyx pain; 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 03/22/2025 Travel 03/20/2025 Telephone [facility] [address] [place] [address] [phone] Chelsea Boyd NP 03/19/2025 Patient Outreach [facility] [address], [place] [phone] Aimee Ivy FNP Pre-visit Planning (SDOH unable to reach [facility] ) 03/19/2025 Telephone [facility] [address] [place] [phone] Chelsea Boyd NP 03/15/2025 1:00 PM EDT Office Visit [facility] [address] [place] [phone] Chelsea Boyd NP Coccyx pain (Primary Dx); Essential hypertension; Other constipation; 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; Obstructive sleep apnea syndrome 03/15/2025 8:00 AM EDT Office Visit [facility] [address] [place] [phone] Juan King DMD 03/15/[address] [address] Aimee Ivy FNP 03/15/[address] [address] Jessie Potts RN 03/15/2025 Travel 03/08/2025 1:00 PM EDT Office Visit [address] [phone] Aimee Ivy FNP Class 2 obesity with body mass index (BMI) of 36.0 to 36.9 in adult, unspecified obesity type, unspecified whether serious comorbidity present (Primary Dx); Resistant hypertension; Need for hepatitis C screening test; Obstructive sleep apnea syndrome; Dietary counseling; Exercise counseling; Chronic back pain, unspecified back location, unspecified back pain laterality; Psoriasis, unspecified; Depression, unspecified depression type 03/08/2025 Travel 03/07/[address] [phone] Aimee Ivy FNP Chart Prep 03/01/2025 Patient Outreach [facility] [address] [place], [place] [phone] Aimee Ivy FNP Pre-visit Planning (SDOH negative, Tobacco screening negative.) 02/22/2025 10:00 AM EDT Office Visit [facility] [address] [place] [phone] Francy Warren Missing teeth, acquired (Primary Dx) 02/11/2025 10:30 AM EDT Office Visit [facility] [address] [place] [address] Juan King DMD 02/11/2025 Telephone [facility] [address] [place] [address] Eleanor Lal, RN Nurse Triage 02/05/2025 Telephone [facility] [address] [place] [phone] Yen case back from lab?? 01/24/2025 Telephone [facility] [address] [place] [address] Aimee Ivy FNP CHW - New Patient Assistance 01/21/2025 11:00 AM EDT Office Visit [facility] [address] [place] [address] Juan King DMD from Last 3 Months Social History Tobacco Use Types Packs/Day Years [...] is your housing situation today? I have joshyarelis rodas 03/01/[address] you [...] Orientation Straight 11/09/2024 10 :09 AM EDT Last Filed Vital Signs Vital Sign Reading [...] Mass Index 36.96 04/02/2025 10:03 AM EDT Plan of Treatment Upcoming Encounters Date Type Department Care Team (Late st Contact Info) Description 04/15/2025 9:15 AM EDT Office Visit [facility] [address] [place] [address] Aimee Ivy FNP [address] [place] [address] Health Maintenance Due Date Last Done Comments CT Colonography 1955 Colonoscopy 1955 Colorectal Cancer Screening 1955 FIT DNA/Cologuard 1955 FIT 1955 FOBT 1955 Sigmoidoscopy 1955 DTaP/Tdap/Td Vaccines (1 - Tdap) 1974 Mammogram 1995 Pneumococcal Vaccine: 50+ Years (1 of 1 - PCV) 2005 Zoster Vaccines (1 of 2) 2005 COVID-19 Vaccine (1 - 2024-2 5 season) 2025 Influenza Vaccine (#1) 2025 Dental Oral Exam 06/09/2025 12/06/2024 Dental Prophylaxis 06/15/2025 12/12/2024 Depression Monitoring 09/08/2025 03/08/2025 , 03/08/2025 Dental X-Ray: Bitewings 12/07/2025 12/06/2024 Alcohol/Substance Use Screening 03/08/2026 03/08/2025 SDOH Screening 03/08/2026 03/08/2025 Tobacco Screening 04/02/2026 04/02/2025 Dental X-Ray: Full Mouth 12/08/2027 12/06/2024 Lipid Panel 03/09/2030 03/09/2025 RSV Patients and Patients Aged 60 years or older (1 - 1-dose 75+ series) 2030 Hepatitis C Screening Completed 03/09/2025 HIB Vaccines Aged Out No longer eligi [...] on patient's age to complete this topic Procedures Procedure Name Priority Date/Time Associated Diagnosis Comments XR SACRUM COCCYX 2+ VIEWS Routine 03/15/2025 1:09 PM EDT Coccyx pain XR LUMBAR SPINE 2-3 VIEWS Routine 03/15/2025 1:07 PM EDT DENTURE ADJUSTMENT Routine 03/15/2025 8: 00 AM EDT HEPATITIS C AB W/REFL TO HCV RNA, QN, PCR Routine 03/09/2025 9:51 AM EDT Need for hepatitis C screening test BASIC METABOLIC PANEL Routine 03/09/2025 9:51 AM EDT Resistant hypertension CBC WITH AUTO DIFFERENTIAL Routine 03/09/2025 9:51 AM EDT Class 2 obesity with body mass index (BMI) of 36.0 to 36.9 in adult, unspecified obesity type, unspecified whether serious comorbidity present LIPID PANEL, STANDARD Routine 03/09/2025 9:51 AM EDT Class 2 obesity with body mass index (BMI) of 36.0 to 36.9 in adult, unspecified obesity type, unspecified whether serious comorbidity present CASE PRESENTATION, DETAILED AND EXTENSIVE TREATMENT PLANNING Routine 02/22/2025 10:00 AM EDT Missing teeth, acquired ADJUST PARTIAL DENTURE - MANDIBULAR Routine 02/22/2025 10:00 AM EDT CASE PRESENTATION, DETAILED AND EXTENSIVE TREATMENT PLANNING Routine 02/11/2025 10:30 AM EDT 30,31,19,18 MANDIBULAR PARTIAL DENTURE - RESIN BASE (INCLUDING, RETENTIVE/CLASPING MATERIALS, RESTS, AND TEETH) Routine 02/11/2025 10:30 AM EDT WAX TRY IN Routine 01/21/2025 11:00 AM EDT PROPHYLAXIS - ADULT Routine 12/12/2024 1 0:00 AM EDT INTRAORAL - COMPLETE SERIES OF RADIOGRAPHIC IMAGES Routine 12/06/2024 1:30 PM EDT PERIODIC ORAL EVALUATION - ESTABLISHED PATIENT Routine 12/06/2024 1:30 PM EDT from Last 3 Months or Most Recently Relevant to Health Maintenance Results * XR Sacrum Coccyx 2+ Views (03/15/2025 1:09 PM EDT) Anatomical Region Laterality Modality Sacrum, Coccyx Radiographic Camila ging 03/15/2025 1:09 PM EDT Narrative 03/15/2025 2:34 PM EDT [address] [address] XRay Report Signed Patient: Quinten Bowen MR#: [id number] : 1955 Acct:[id number] Age/Sex: 69 / F ADM Date: 03/15/25 Loc: [facility] Attending Dr: Chelsea Boyd SONAR WATCHSTANDER Ordering Physician: Chelsea Boyd SONAR WATCHSTANDER Date of Service: 03/15/25 Procedure(s): XR sacrum coccyx min 2V Accession Number(s): [id number] cc: Chelsea Boyd SONAR WATCHSTANDER EXAMINATION: XR SACRUM AND COCCYX CLINICAL INFORMATION: fell onto coccyx. COMPARISON: Correlated to lumbar spine x-ray dated November 12, 2024. TECHNIQUE: AP and lateral views FINDINGS: There is a cortical irregularity with anterior displacement at the sacrococcyx junction. Spondylosis L4-5 and L5-S1 with grade 1 anterolisthesis at L4-5 and L3-4 levels. XR/XR sacrum coccyx min 2V IMPRESSION: Anteriorly displaced fracture, sacrococcyx junction. Electronically signed by: Murphy Motta MD 03/15/2025 02:31 PM EDT Dictated By: Murphy Yang MD Signed By: <Electronically signed by Murphy Yanes MD in OV> 03/15/25 1431 DD/ 1309 TD/TT: 03/15/25 1320 Senior Account Director: Procedure Note Donotuseinterpreter, Image - 03/15/[address] [address] XRay Report Signed Patient: Quinten oBwen [facility]#: [id number] : 1955cct:[id number] Age/Sex: 69 / FADM Date: 03/15/25 Loc: [facility] Attending Dr: Chelsea Boyd SONAR WATCHSTANDER Ordering Physician: Chelsea Boyd SONAR WATCHSTANDER Date of Service: 03/15/25 Procedure(s): XR sacrum coccyx min 2V Accession Number(s): [id number] cc: Chelsea Boyd SONAR WATCHSTANDER EXAMINATION: XR SACRUM AND COCCYX CLINICAL INFORMATION: fell onto coccyx. COMPARISON: Correlated to lumbar spine x-ray dated November 12, 2024. TECHNIQUE: AP and lateral views FINDINGS: There is a cortical irregularity with anterior displacement at the sacrococcyx junction. Spondylosis L4-5 and L5-S1 with grade 1 anterolisthesis at L4-5 and L3-4 levels. XR/XR sacrum coccyx min 2V IMPRESSION: Anteriorly displaced fracture, sacrococcyx junction. Electronically signed by: Murphy Motta MD 03/15/2025 02:31 PM EDT RP Dictated By: Murphy Yang MD Signed By: <Electronically signed by Murphy Yanes MDin OV> 03/15/25 1431 DD/ 1309 TD/TT: 03/15/25 1320 Senior Account Director: Chelsea Boyd SONAR WATCHSTANDER IMG XR PROCEDURES Final Result * XR Lumbar Spine 2-3 Views (03/15/2025 1:07 PM EDT) Anatomical Region Laterality Modality Spine, L-spine Radiographic Camila ging 03/15/2025 1:0 7 PM EDT Narrative 03/15/2025 2:30 PM EDT [address] [address] XRay Report Signed Patient: Quinten Bowen MR#: [id number] : 1955 Acct:[id number] Age/Sex: 69 / F ADM Date: 03/15/25 Loc: .HHCX Attending Dr: Chelsea Boyd SONAR WATCHSTANDER Ordering Physician: Chelsea Boyd NP Date of Service: 03/15/25 Procedure(s): XR lumbar spine 2-3V Accession Number(s): [id number] cc: Chelsea Boyd SONAR WATCHSTANDER EXAMINATION: XR LUMBOSACRAL SPINE CLINICAL INFORMATION: lumbar coccyx pain after fall COMPARISON: November 12, 2024 TECHNIQUE: AP and lateral views FINDINGS: Multilevel marginal osteophyte formation and syndesmophyte formation throughout the axial skeleton. Decreased intervertebral disc height at L4-5 and L5-S1. Grade 1 anterolisthesis L3-4 and L4-5, unchanged. Cortical irregularity at the sacrococcyx junction. No lytic or blastic lesions. XR/XR lumbar spine 2-3V IMPRESSION: Concerning displaced fracture, sacrococcyx. Multilevel thoracolumbar spondylosis. Grade 1 anterolisthesis L3-4 and L4-5. Electronically signed by: Murphy Motta MD 03/15/2025 02:27 PM EDT RP Dictated By: Murphy Yang MD Signed By: <Electronically signed by Murphy Yanes MD in OV> 03/15/25 1427 DD/ 1307 TD/TT: 03/15/25 1320 Senior Account Director: Procedure Note Donotuseinterpreter, Image - 03/15/[address] [address] XRay Report Signed Patient: Quinten Bowen MMR#: [id number] : 6Acct:[id number] Age/Sex: 69 / FADM Date: 03/15/25 Loc: HO.HHCX Attending Dr: Chelsea Boyd SONAR WATCHSTANDER Ordering Physician: Chelsea Boyd NP Date of Service: 03/15/25 Procedure(s): XR lumbar spine 2-3V Accession Number(s): [id number] cc: Chelsea Boyd SONAR WATCHSTANDER EXAMINATION: XR LUMBOSACRAL SPINE CLINICAL INFORMATION: lumbar coccyx pain after fall COMPARISON: November 12, 2024 TECHNIQUE: AP and lateral views FINDINGS: Multilevel marginal osteophyte formation and syndesmophyte formation throughout the axial skeleton. Decreased intervertebral disc height at L4-5 and L5-S1. Grade 1 anterolisthesis L3-4 and L4-5, unchanged. Cortical irregularity at the sacrococcyx junction. No lytic or blastic lesions. XR/XR lumbar spine 2-3V IMPRESSION: Concerning displaced fracture, sacrococcyx. Multilevel thoracolumbar spondylosis. Grade 1 anterolisthesis L3-4 and L4-5. Electronically signed by: Murphy Motta MD 03/15/2025 02:27 PM EDT RP Dictated By: Murphy Yang MD Signed By: <Electronically signed by Murphy Yanes MDin OV> 03/15/25 1427 DD/ 1307 TD/TT: 03/15/25 1320 Senior Account Director: us Chelsea Boyd SONAR WATCHSTANDER IMG XR PROCEDURES Final Result * (ABNORMAL) CBC auto differential (03/09/2025 9:51 AM EDT) White Blood Count 4.6(L) 4.8 - 10.8 X10*3/uL [facility] Red Blood Count 4.65 4.20 - 5.50 X10*6/uL [facility] Hemoglobin 12.8 12.0 - 16.0 g/dl [facility] Hematocrit 39.7 37.0 - 47.0 % [facility] Mean Corpuscular Volume 85.4 80.0 - 98.0 fL [facility] Mean Corpuscular Hemoglobin 27.5 27.0 - 33.0 pg [facility] Mean Corpuscular HGB Conc 32.2 31.0 - 35.0 g/dl [facility] Red Cell Distribution Width 15.9 11.0 - 16.0 % [facility] Platelet Count 165 160 - 400 X10*3/uL [facility] Mean Platelet Volume 10.2 9.4 - 12.3 fL [facility] Neutrophils Percent Auto 64.0 45 - 73 % [facility] Imm Gran Pct Auto 0.2 0.0 - 0.4 % [facility] Lymphocytes Percent Auto 25.7 20 - 40 % [facility] Monocytes Percent Auto 8.8 2 - 11 % [facility] Eosinophils Percent Auto 1.1 0 - 4 % [facility] Basophils Percent Auto 0.2 0 - 2 % [facility] NRBC Pct Auto 0.0 0.0 - 0.2 /100WBC [facility] Neutrophils Absolute Auto 2.9 2.0 - 8.3 x10*3/uL [facility] Imm Gran Abs Auto 0.01 0.00 - 0.03 X10*3/uL [facility] Lymphocytes Absolute Auto 1.2 1.2 - 4.9 X10*3/uL [facility] Monocytes Absolute Auto 0.4 0.1 - 1.2 X10*3/uL [facility] Eosinophils Absolute Auto 0.1 0.0 - 0.4 X10*3/uL [facility] Basophils Absolute Auto 0.0 0.0 - 0.2 X10*3/uL [facility] NRBC Abs Auto 0.000 0.0 - 0.012 X10*3/uL [facility] Blood Venous blood specimen / Unknown 03/09/2025 9:51 AM EDT 03/09/2025 9:51 AM EDT [facility] LAB BLOOD ORDERABLES Final Res ult Performing Organization Address [facility]/ZIP Co de Phone Number [facility] [address] [place] [phone] * Hepatitis C Antibody with Reflex to HCV, RNA, Quantitative, Real-Time PCR (03/09/2025 9:51 AM EDT) Hepatitis C Antibody Nonreactive Nonreactive [facility] Comment:Antibodies to HCV no t detected; does not exclude early acuteHCV infection. Blood Venous blood specimen / Unknown 03/09/2025 9:51 AM EDT 03/09/2025 9:51 AM EDT [facility] Final Res ult Performing Organization Address [facility]/ZIP Co de Phone Number [facility] [address] [place] [phone] * Lipid Panel (03/09/2025 9:51 AM EDT) Triglycerides 64 <150 mg/dL [facility] Comment:Desirable Triglyceri de: less than 150 mg/dLBorderline High Triglyceride 150-199 mg/dLHigh Triglyceride: 200-499 mg/dLVery High Triglyceride: greater than or equal to 5OO mg/dL Cholesterol 160 <200 mg/dL [facility] Comment:Desirable Cholestero l: less than 200 mg/dLBorderline High Cholesterol: 200-239 mg/dLHigh Cholesterol: greater than 239 mg/dL LDL Cholesterol Calculated 99 <100 mg/dL [facility] Comment:Desirable LDL: less than 100 mg/dLNear Optimal/Above Optimal LDL: 110- 129 mg/dLBorderline High LDL: 130-159 mg/dLHigh LDL: 160-189 mg/dLVery High LDL: greater than or equal to 190 mg/dL HDL Cholesterol 49 >40 mg/dL [facility] Comment:Desirable HDL: great er than 40 mg/dL Note: This HDL assay may give artificially low results in patients with liver disease. Blood Venous blood specimen / Unknown 03/09/2025 9:51 AM EDT 03/09/2025 9:51 AM EDT us Aimee Ivy REFRACTIVE SURGEON LAB BLOOD ORDERABLES Final Res ult [facility] [address] [place] [address] [phone] * (ABNORMAL) Basic metabolic panel (03/09/2025 9:51 AM EDT) Sodium 145 135 - 145 mmol/L [facility] Potassium 3.9 3.3 - 5.1 mmol/L [facility] Chloride 108 96 - 108 mmol/L [facility] Carbon Dioxide 29 22 - 29 mmol/L [facility] Anion Gap 12 12 - 20 [facility] Urea Nitrogen (BUN) 19(H) 9 - 16 mg/dL [facility] Creatinine, Serum 0.90 0.5 - 1.4 mg/dL [facility] Estimated Glomerular Filt Rate >60 [facility] Comment:Chronic Kidney Disea se: Estimated GFR < 60 mL/min/1.53b3Gndnvq Kidney Disease: Estimated GFR < 15 mL/min/1.73m2 Glucose 95 60 - 115 mg/dL [facility] Calcium 9.0 8.4 - 10.2 mg/dL [facility] Blood Venous blood specimen / Unknown 03/09/2025 9:51 AM EDT 03/09/2025 9:51 AM EDT us Aimee Ivy REFRACTIVE SURGEON LAB BLOOD ORDERABLES Final Res ult [facility] [address] [place] [address] [phone] from Last 3 Months Insurance MEDICARE [facility] D[facility] - [facility] FULL (MEDICAID) Care Teams Bench Jeweler Relationship Specialty Start Date End Date Aimee Ivy FNP [address] [place] [phone] PCP - General Family Medicine 03/08/25
--- OUTSIDE RECORDS SUMMARY | 2025-04-02 18:23 | XMS_ITS | Encounter Summary ---
Author Organization [employer] Address [address] [facility] [address] [place] [address] Care Team Providers Care Maritime Pilot Name Role Phone Aimee Ivy MEDICAL HEALTH RESEARCHER Primary Care Provider [phone] Reason for Visit * Reason Onset Date Comments Dr. King case back from lab?? 02/05/2025 Encounter Details Date Type Department Care Team ([facility] Contact Info) Description 02/05/2025 Telephone [facility] [address] [place], [place] [phone] Juan King, DMD [address], [place] [phone] Dr. King case back from lab?? Social [...] reach out topatient for update and/or scheduling Sent to Clinical support and test desk trouble locator documented in this encounter Plan of Treatment Upcoming Encounters Date Type Department Care Team ([facility] Contact Info) Description 04/15/2025 9:15 AM EDT Office Visit [facility] [address] [place] [address] Aimee Ivy FNP [address] [place] [address] documented as of this encounter Visit Diagnoses Not on filedocumented in this encounter Care Teams Maritime Pilot Relationship Specialty Start Date End Date Aimee Ivy FNP [address] [place] [address] PCP - General Family Medicine 03/08/25 documented as of this encounter
--- OUTSIDE RECORDS SUMMARY | 2025-04-02 18:23 | XMS_ITS | Clinical Summary ---
Author Organization 175 [facility] Address [address] [place] [address] Phone Care Team Providers Care Shaft Repairer Name Role Phone Courtney Whyte MD Primary Care Provider [phone] Social History Tobacco Use Types Packs/Day Years [...] 9:30 AM EDT Office Visit Orthopedic Surgery [facility] [address] [address] Christopher Tariq, DPM [address] [phone] Health Maintenance Due Date Last Done Comments Breast Cancer Screening 1955 DTaP,Tdap,and Td Vaccines (1 - Tdap) 1974 Pneumococcal Vaccine: 50+ Ye ars (1 of 1 - PCV) 2005 Zoster Vaccines (1 of 2) 2005 Depression Screening 08/01/2024 Colorectal Cancer Screening: Colonoscopy 03/07/2025 Falls Risk Assessment 03/07/2025 Hepatitis C Screening 03/07/2025 Medicare Annual Wellness Visit 03/07/2025 Osteoporosis Screening (Bone Density Screening) 03/07/2025 Social Influencers of Health Screening 03/07/2025 COVID-19 Vaccine ( - 2023-2 5 season) 2025 Influenza Vaccine (#1) 2025 RSV Immunization Adult [...] complete this topic Insurance [place] [address] MEDICARE MEDICAID - [place] Care Teams Shaft Repairer Relationship Specialty Start Date End Date Courtney Whyte MD [address] [place] [phone] PCP - General Internal Medicine 03/07/25
[2025-04-02 20:37] LABS: Bacterial Vaginosis PCR POSITIVE (Negative); Candida Group PCR NOT DETECTED (Not Detect); Candida glab krusei PCR NOT DETECTED (Not Detect); Trichomonas vaginalis PCR NOT DETECTED (Not Detect)
== END 2025-04-02 18:20 | disposition home or self-care (01) ==
LOC: HO.HHCLNP 18:19
PROVIDERS: Visit Provider Nurse Practitioner Family
DX: N89.8 Other specified noninflammatory disorders of vagina (principal)
CPT/HCPCS: 81515

== ENCOUNTER 2025-05-24 10:47 | Outpatient (REF) | payer MEDICARE, OTHER, SELFPAY ==
[2025-05-24 14:09] LABS: Alanine Aminotransferase 24 U/L (0-31); Albumin Level 4.2 g/dL (3.5-5.0); Alkaline Phosphatase 70 U/L (39-117); Anion Gap 10 (12-20); Aspartate Amino Transferase 23 U/L (5-31); Blood Urea Nitrogen 21 mg/dL (9-16); Calcium 9.3 mg/dL (8.4-10.2); Carbon Dioxide 31 mmol/L (22-29); Chloride 106 mmol/L (96-108); Estimated Glomerular Filt Rate > 60; Potassium 4.1 mmol/L (3.3-5.1); Sodium 143 mmol/L (135-145); Total Protein 7.2 g/dL (6.5-8.0)
== END 2025-05-24 10:48 | disposition home or self-care (01) ==
LOC: HO.HHCL 10:47
PROVIDERS: Nurse Practitioner Family; PCP Nurse Practitioner Family; Visit Provider Nurse Practitioner Family
DX: E55.9 Vitamin D deficiency, unspecified (principal); I10 Essential (primary) hypertension; E66.812 Obesity, class 2; Z68.36 Body mass index [BMI] 36.0-36.9, adult
CPT/HCPCS: 36415; 80048; 80076; 82306

== ENCOUNTER 2025-06-20 10:37 | Outpatient (REF) | payer MEDICARE, OTHER, SELFPAY ==
[2025-06-21 00:12] LABS: Bacterial Vaginosis PCR POSITIVE (Negative); Candida Group PCR NOT DETECTED (Not Detect); Candida glab krusei PCR NOT DETECTED (Not Detect); Trichomonas vaginalis PCR NOT DETECTED (Not Detect)
== END 2025-06-20 10:38 | disposition home or self-care (01) ==
LOC: HO.LNP 10:37
PROVIDERS: PCP Nurse Practitioner Family; Visit Provider Advanced Practice Midwife
DX: N90.4 Leukoplakia of vulva (principal); N77.1 Vaginitis, vulvitis and vulvovaginitis in diseases classified elsewhere; N93.9 Abnormal uterine and vaginal bleeding, unspecified; Z78.0 Asymptomatic menopausal state; Z90.710 Acquired absence of both cervix and uterus
CPT/HCPCS: 81515; 99202

== ENCOUNTER 2025-06-20 10:37 | Outpatient (AMB) | payer MEDICARE, MEDICAID, SELFPAY ==
--- NOTE | 2025-06-20 10:41 | MHC.OFFVIS ---
Vital Signs 06/20/25 10:42 Height 5 ft 9 in Weight 251 lb BMI 37.1 BP 132/74 Blood Pressure Location Rt brachial Position Sitting Pulse 87 Pulse Source Pulse Oximeter Pulse Oximetry (%) 98 Oxygen Delivery Method Room Air Intake Visit Reasons: lichern sclerosus Allergies dust Allergy (Mild, Uncoded 06/20/25 10:44) sneezing Medication List - Last Reconciled 06/20/25 by Ivana Hanley CNM atorvastatin 20 mg PO DAILY baclofen 10 mg PO TID PRN bimekizumab-bkzx (Bimzelx Autoinjector) mg subcut blood pressure monitor Large adult arm cuff (automatic) cetirizine (Allergy Relief (cetirizine)) 10 mg PO DAILY clobetasol 0.05% 1 appl topical BID PRN epinephrine (EpiPen) 0.3 mg (0.3 mL) IM Q20M PRN estradiol 0.01%(0.1mg/gram) (Estrace) 1 g vaginal 2XW hydralazine 50 mg PO BID irbesartan-hydrochlorothiazide 150-12.5 mg 1 tab PO BID nifedipine ER 30 mg PO DAILY oxygen-air delivery systems As directed, pt is on c-pap not oxygen tramadol 50 mg PO BID PRN Zepbound (tirzepatide (weight loss)) 2.5 mg (0.5 mL) subcut QWEEK NS HPI Comments Details: Pt presents today as a new pt , here to establish VENEER GRADER care. referred by her pcp with concerns of vulvar itching, dryness, treated with Temovate by PCP for lichen sclerosa with mild effect. she also reports hx of psoriasis managed with biologicals with very good effect. s/p hysterectomy age 39 due to mennorhagia/fibroids, never had children, not sexually active she does experience episodes of incontinence, especially with laugh/cough. uses liners daily currently awaiting approval for zepbond in setting of htn, obesity, sleep apnea [facility] Medical History (Updated 06/20/25 @ 15:52 by Ivana Hanley CNM) Lichen sclerosus et atrophicus of the vulva Fractured coccyx Nasal congestion Nasal turbinate hypertrophy Allergic rhinitis ZURI on CPAP Obesity (BMI 30.0-34.9) Spinal stenosis Hyperlipidemia Psoriasis Seasonal allergies Neck arthritis Dysfunction of right rotator cuff Hypertension Low vitamin D level Fibromyalgia Surgical History Hx of nasal septoplasty History of repair of hiatal hernia Status post laparoscopic sleeve gastrectomy History of cataract surgery History of sinus surgery History of partial hysterectomy History of myomectomy History of colonoscopy Hx of breast reduction, elective History of appendectomy Family History Father Unknown family medical history Mother Alive and well Diabetes mellitus Brother Alive and well Brother Alive and well Sister Alive and well Social History Household Members Other:: lives alone Housing: Apartment Alcohol intake: current Alcohol intake frequency: does not drink Patient Tobacco Use Status: Never used Tobacco e-Cigarette/Vaping Use: Never Used service: No Current occupational status: retired 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 [employer] Current occupational exposures/hazards: No Cognitive needs: No Hearing needs: Yes Vision needs: Yes Female Reproductive History Menstrual control method: none Menopause type: natural Total pregnancies: 0 History of abnormal pap smear: No History of STI: No Date of Mammogram: 02/25/25 History of abnormal mammogram: No Review of Systems Const Reports no additional complaints Eyes Reports no additional complaints ENT Reports no additional complaints Card Reports no additional complaints Resp Reports no additional complaints GI Reports no additional complaints Reports as per [facility] Skin/Breast Reports system reviewed and no additional complaints, except as documented Physical Exam Vital Signs: Last Vital Signs Pulse 87 06/20/25 10:42 BP 132/74 06/20/25 10:42 Pulse Ox 98 06/20/25 10:42 Oxygen Delivery Method Room Air 06/20/25 10:42 BMI result Body Mass Index 37.1 Const General: cooperative, comfortable, no acute distress and well groomed Eyes General: appearance normal, both eyes and all related structures Neck Neck: Yes normal visual inspection Resp Effort & Inspection: normal respiratory effort and able to speak in complete sentences GI Rectal Exam - Female: External hemorrhoid(s) present Speculum Exam - Vagina: other (vaginal atrophy) Speculum Exam - Cervix: Other cervical findings present (cervix is surgically absent,) Bimanual exam- vagina & uterus: other (surgically absent) Female genitals images:  1. hypopigmented areas (yellow crayon) 2. pale and white( green crayon) Assessment & Plan Assessment & Plan (1) Vaginitis and vulvovaginitis in diseases classified elsewhere: Code(s): N77.1 - Vaginitis, vulvitis and vulvovaginitis in diseases classified elsewhere Plan: Likely atrophic vaginitis vaginal estrace twice weekly will add additional treatment pending results if needed. (2) Stress incontinence in female: Code(s): N39.3 - Stress incontinence (female) (male) Plan: referral to pelvic floor PT (3) Postmenopausal status: Code(s): Z78.0 - Asymptomatic menopausal state (4) Status post hysterectomy: Code(s): Z90.710 - Acquired absence of both cervix and uterus (5) Lichen sclerosus et atrophicus of the vulva: Comment: cont temovate bid x 10 day Code(s): N90.4 - Leukoplakia of vulva Category: Medical Plan pt is counseled on Kegel exercises Orders: Orders Bacterial Vaginosis Panel Today N77.1 - Vaginitis, vulvitis and vulvovaginitis in diseases classified elsewhere Referrals Pelvic Heating And Air Conditioning Mechanic Referral N39.3 - Stress incontinence (female) (male), Z78.0 - Asymptomatic menopausal state, Z90.710 - Acquired absence of both cervix and uterus Medications: New estradiol 0.01%(0.1mg/gram) (Estrace) 1 g vaginal 2XW 42.5 grams 3RF Coding Level of Care Code New Pt Level 4 (07881) Diagnoses Vaginitis and vulvovaginitis in diseases classified elsewhere N77.1 Stress incontinence in female N39.3 Postmenopausal status Z78.0 Status post hysterectomy Z90.710 Lichen sclerosus et atrophicus of the vulva N90.4
[2025-06-20 10:42] VITALS: BP 132/74; PULSE 87; O2SAT 98; BMI 37.1
--- OUTSIDE RECORDS SUMMARY | 2025-06-20 15:41 | XMS_ITS | Clinical Summary ---
Author Organization 175 [facility] Address 175 [place] [address] Phone Care Team Providers Care Zipper Trimmer Name Role Phone Courtney Whyte MD Primary Care Provider [phone] Allergies Active Allergy Reactions Criticality Noted Date Comments Levonorgestrel-Ethinyl Estrad Unknown 2024 Mite Extract Unknown 12/06/2024 Medications acetaminophen (TYLENOL 8 HOUR) 650 mg 8 hr tablet Take 1 tablet (650 mg total) by mouth 2 times daily as needed. Active atorvastatin (LIPITOR) 20 mg tablet Take 1 tablet (20 mg total) by mouth daily. Active baclofen (LIORESAL) 10 mg tablet Take 1 tablet (10 mg total) by mouth 3 times daily as needed. 5 Active Omron BP Monitor-3 Series kit USE TO CHECK BLOOD PRESSURE TWICE DAILY 5 Active clobetasoL (TEMOVATE) 0.05 % ointment APPLY TO THE AFFECTED AREA(S) TOPICALLY TWICE DAILY IN THE MORNING AND IN THE EVENING FOR FOURTEEN DAYS 5 Active DULoxetine (CYMBALTA) [address] capsule Take 1 capsule (30 mg total) by mouth daily. 5 Active fluticasone propionate (FLONASE) 50 mcg/actuation nasal spray USE 1 SPRAY INTO BOTH NOSTRILS TWICE A DAY Active furosemide (LASIX) 40 mg tablet Take 1 tablet (40 mg total) by mouth 2 (two) times a day. 4 Active gabapentin (NEURONTIN) 300 mg capsule Take 1 capsule (300 mg total) by mouth at bedtime. 5 Active hydrALAZINE (APRESOLINE) 50 mg tablet Take 1 tablet (50 mg total) by mouth 2 times daily. Active irbesartan (AVAPRO) 150 mg tablet Take 1 tablet (150 mg total) by mouth 2 times daily. 5 04/23/20 26 Active metroNIDAZOLE (FLAGYL) 500 mg tablet Take 1 tablet (500 mg total) by mouth 2 (two) times a day. for 7 days 5 Active polyethylene glycol (PEG) 17 gram/dose oral powder TAKE 17 GM MIXED IN 8 OUNCES OF WATER, COFFEE OR TEA ONCE DAILY NEEDED FOR CONSTIPATION 5 Active Skyrizi 150 mg/mL pen injector INJECT ONE PEN UNDER THE SKIN EVERY 12 WEEKS. Active senna-docusate (PERICOLACE) 8.6-50 mg per tablet Take 2 tablets by mouth. Active traMADoL (ULTRAM) 50 mg tablet Take 1 tablet (50 mg total) by mouth 2 times daily as needed. 5 Active traZODone (DESYREL) 50 mg tablet Take 1 tablet (50 mg total) by mouth once daily as needed. 5 Active ammonium lactate (AmLactin) 12 % lotion Apply topically if needed for dry skin. 400 g 5 05/07/20 26 Active clotrimazole (LOTRIMIN) 1 % cream Apply topically 2 (two) times a day. 30 g 3 5 06/06/20 25 Encounters Date Type Department Care Team Description 05/07/2025 9:30 AM EDT Office Visit Orthopedic Surgery - [address] [address] Christopher Tariq DPM Acquired hammer toe of right foot (Primary Dx); Hammer toe of left foot; Dermatophytosis of nail; Pain in toe of right foot; Pain in toe of left foot; Ingrowing nail; Difficulty walking; Corns and callosities from Last 3 Months Social History Tobacco Use Types Packs/Day Years Used Date Smoking Tobacco: Never Assessed Comments Unknown Sex and Gender Information Value Date Recorded Sex Assigned at Not on file Legal Sex Female 11:29 AM EST Gender Identity Not on file Sexual Orientation Not on file Plan of Treatment Upcoming Encounters Date Type Department Care Team (Late st Contact Info) Description 08/07/2025 9:45 AM EST Office Visit Orthopedic Surgery - [place] 250 175 [facility] 250 [place] [address] Christopher Tariq, DPM 175 [facility] 250 [place] [address] Health Maintenance Due Date Last Done Comments Breast Cancer Screening 1955 Colorectal Cancer Screening: Colonoscopy 1955 Pneumococcal Vaccine: 50+ Years (1 of 1 - PCV) 2005 Zoster Vaccines (1 of 2) 2005 Depression Screening 08/01/2024 Falls Risk Assessment 03/07/2025 Medicare Annual Wellness Visit 03/07/2025 Osteoporosis Screening (Bone Density Screening) 03/07/2025 Social Influencers of Health Screening 03/07/2025 COVID-19 Vaccine (4 - 2024-2 6 season) 2025 08/11/2021, 12/09/2020, 11/11/2020 Influenza Vaccine (#1) 2025 , 06/17/2015 Hypertension/CHF/CAD Annual BMP Blood Test 03/09/2026 03/09/2025 DTaP,Tdap,and Td Vaccines (2 - Td or Tdap) 08/23/2029 08/23/2019 Cholesterol Screening (Lipid Panel) 03/09/2030 03/09/2025 RSV Immunization Adult Patients (1 - 1-dose 75+ series) 2030 Hepatitis [...] to complete this topic RSV Immunization Patients Under 20 months Aged Out No longer eligible b ased on patient's age to complete this topic Varicella Vaccines Aged Out No longer eligible based on patient's age to complete this topic Insurance MEDICARE MEDICAID - [place] Care Teams Zipper Trimmer Relationship Specialty Start Date End Date Courtney Whyte MD [address] [place] [phone] PCP - General Internal Medicine 03/07/25
--- OUTSIDE RECORDS SUMMARY | 2025-06-20 15:41 | XMS_ITS | Data Portability ---
Author Organization [place] - [facility], Allergy Address [address] [address] Care Team Providers Care Assistant Shift Supervisor Name Role Phone JOSE AUGUSTINE Primary [...] submucous resection inferior turbinate (SURG) 2023 024 [email or web address] [id number] Not available 4 08:48:[address], orbits + paranasal sinuses, w/o contrast 2023 024 [email or web address] [facility], [address], [address], [place], [address], 4 16:39:13 Medication Orders None recorded. Patient TargetsNo targets recorded. Patient InstructionsNo instructions recorded. Reason for Referral None Reported. Results Created Date Observation Date Name Description Value Unit Range Abnormal Flag Note LastModifiedBy Organization Detail LastModifiedTime 03/08/2003/06/2024 CT, sinus es, w/o contr ast No observ ation record ed. [email or web address] [facility] [address] [facility] [address], [place], [address], 03/09/2024 09:01:57 Result Notes None recorded. Problems Name Problem SNOMED Code Status Onset Date Resolution Date Notes Provider Name and Address Organization Details Recorded Time Hypertrop hy of nasal turbinate s 08316058 Active 2018 Hypertrop hy of nasal turbinate s; Note: Date Diagnosed : 11/03/2018 2:33 PM (J34.3) Not Available [facility] 4 02:23:06 Essential hypertens ion 48299884 Active 2018 Essential (primary) hypertens ion; Note: Date Diagnosed : 11/03/2018 2:33 PM (I10) Not Available [facility] 4 02:22:30 Nasal congestio n 29676018 Active 2018 Nasal congestio n; Note: Date Diagnosed : 11/03/2018 2:33 PM (R09.81) Not Available [facility] 4 02:22:54 Obstructi ve sleep apnea syndrome 14724116 Active 2018 Obstructi ve sleep apnea (adult) (pediatri c); Note: Date Diagnosed : 11/03/2018 2:35 PM (G47.33) Not Available [facility] 4 02:23:00 Chronic rhinitis 04366200 Active 2018 Chronic rhinitis; Note: Date Diagnosed : 11/03/2018 2:33 PM (J31.0) Not Available [facility] 4 02:22:48 Headache 72545193 Active 2018 Headache, unspecifi ed; Note: Changed from R51 to R51.9 (12/03/2020 4:50 PM) , Date Diagnosed : 02/02/2019 12:11 PM (R51) Not Available [facility] 4 02:22:33 Sensorine ural hearing loss of bilateral ears 087433543 Active 2020 Sensorine ural hearing loss, bilateral ; Note: Date Diagnosed : 12/03/2020 4:33 PM (H90.3) Not Available [facility] 4 02:22:41 Pain of left temporoma ndibular joint 32110831932 727667 Active 2021 Arthralgi a of left temporoma ndibular joint; Note: Date Diagnosed : 2 11:35 AM (M26.622) Not Available [facility] 4 02:23:00 Otalgia of left ear 2915810209 Active 2021 Otalgia, left ear; Note: Date Diagnosed : 2 11:35 AM (H92.02) Not Available [facility] 4 02:23:04 Referred otalgia 78495292 Active 2021 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 Procedures Surgical History Date Name Laterality Status Provider Name and Address Organization Details Recorded Time 5 Resect inferior turbinate completed JOVANNA JESUS MD [address], [place], [address], [facility] - [facility] 08/14/2024 09:45:39 4 JMSNasal/Sinus Endoscopy completed JOVANNA JESUS MD [address] [facility],[address], [place], [address], [facility] - [facility] 03/09/2024 08:43:18 4 JMSNasal/Sinus Endoscopy completed ELIZABETH GANDHI PA-C [address] [facility],[address], [place], [address], [facility] 12/28/2023 10:05:50 Imaging Results None recorded. Procedure Notes None recorded. Medical Equipment None Reported. Allergies Allergen ID Allergen Name Allergen Category Reaction Reaction Severity Criticality Documentation Date Start Date Code Code System Note Provider Name and Address Organization Details Recorded Time 962415 house dust allergeni c extract environme nt,medica tion Not available Not available Not available 12/28/2023 33643 9 RxNorm Robert crooks [facility] 4 09:12:48 876744 ethinyl estradiol / levonorge strel medicatio n Not available Not available Not available 12/28/2023 96155 8 RxNorm Robert crooks [facility] 4 09:13:05 Medications Name Sig Start Date Stop Date Status Note LastModified by Organization Details LastModified Time losartan 50 mg tablet 08/01 completed Medicati on ID: [id number] D uration Value: 30 Brand Name: losartan [...] mg tablet 08/24 completed Medicati on ID: [id number] D uration Value: 30 Brand Name: atorvasminor [...] both nostrils 03/07 completed Medicati on ID: [id number] Leonarda maloney By Name: Wayne Kelley nd [...] Updated DateTime 08/24/2024 175.26 cm 37.2 kg/m2 223006.28 g Samantha Jackman [place] - [facility] 08/24/2024 12:49:18 Social History None recorded. Functional Status Question Answer Note LastModified by Organizat ion Details LastModified Time Do you use any illicit or recreational drugs? No [email or web address] Information not available 12/28/2023 Do you or have you ever used any other forms of tobacco or nicotine? No [email or web address] Information not available 12/28/2023 What is your [...] Diagnosis SNOMED-CT Code Diagnosis ICD10 Code Diagnosis IMO Codes Diagnosis Note [id number] ELIZABETH GANDHI PA-C [facility] [address] [address] 12/28/2023 08:25:56 12/28/2023 09:57:35 Chronic rhinitis 17690421 J31.0 Hypertroph y of nasal turbinates 85121066 J34.3 Nasal congestion 4408496 0 R09.81 Obstructiv e sleep apnea syndrome 75193642 G47.33 [id number] JOVANNA SHAW MD [facility] [address] [address] 03/09/2024 08:02:23 03/09/2024 08:47:43 Hypertrophy of nasal turbinates 85749310 J34.3 Discussed turbinate reduction. Patient has hypertroph [...] by patient despite open airway Essential hypertension 68324985 I10 Sleep apnea 49072115 G47 .30 [id number] MAYRA BARDALES PA-C [facility] [address] [address] 08/24/2024 12:20:08 08/24/2024 13:27:53 Hypertrophy of nasal turbinates 92136536 J34.3 Nasal congestion 9899362 0 R09.81 Postoperative visit 1836 80412 Z48.89 Health Concerns Section Related Observation LastModified by Organization Detai ls LastModified Time None Recorded Concern Status LastModified by Organization Details LastModified Time None Recorded Advance Directives Directive None Recorded Payers Insurance Date Sequence Insurance Name Policy Number Policy Galdamez Covered Member ID Galdamez Member ID Guarantor Name 11/14/2024 2 [employer] - PLAN 1 (MEDICARE SUPPLEMENT) [id number] Quinten Bowen [id number] Quinten Bowen 02/16/2024 2 UNSPECIFIED REMIT PAYOR Quinten Bowen 08/23/2024 3 [place]: [facility] Quinten Bowen [id number] Quinten Bowen 08/24/2024 1 [place] B-[place]: [employer] Quinten Bowen [id number] Quinten Bowen Notes Date Note Type Note Provider Name and Address Organization Details Recorded Time 12/28/2023 text/html ROS as noted in the HPI 68-year-old female presents for reevaluation of nasal congestion. She [...] benefit from this. JOVANNA JESUS MD [address] [facility],[address], [address], [facility] 12/28/2023 12:45:11 03/09/2024 text/html ROS as noted in the HPI Patient with longstanding history of nasal congestion secondary to allergic rhinitis, use of antihypertensive agents and obstructive sleep apnea. CT scan shows no evidence of sinus disease. This is similar to CT scan in 2020. She has tried multiple topical sprays including antihistamines, nasal steroids and Atrovent without improvement. JOVANNA JESUS MD 100 [facility],[address], [address], [facility] 03/09/2024 08:45:04 08/24/2024 text/html ROS as noted in the HPI 69yo female presents following inferior turbinate surgery on 07/24/[address] Jesus.She has been following postoperative instructions. Mild nasal congestion bilaterally. JOVANNA JESUS MD [address] [facility],[address], [place], [address], [facility] 08/26/2024 18:57:50 OBGyn Episode No OBEpisode recorded.
--- OUTSIDE RECORDS SUMMARY | 2025-06-20 15:41 | XMS_ITS | Encounter Summary ---
Author Organization [employer] Address [address] [facility] 7t [place] [address] Care Team Providers Care Lease Examiner Name Role Phone Aimee Ivy DIRECTOR OF HOUSING AND ENERGY SERVICES Primary Care Provider [phone] Yu Zhang PharmD Unavailable [phone] Reason for Visit * Reason Onset Date Comments Dr. King case back from lab?? 02/05/2025 Encounter Details Date Type Department Care Team (Late st Contact Info) Description 02/05/2025 Telephone [facility] ADULT DENTAL [address] [place] [address] Juan King, DMD [address] [place] [address] Dr. King case back from lab?? Social [...] scheduling DR Sent to Clinical support and javascript front end developer DR documented in this encounter Plan of Treatment Upcoming Encounters Date Type Department Care Team (Late st Contact Info) Description 07/02/2025 9:00 AM EST Nutrition [facility] DIABETES/NUTRITION [address] [place] [address] Ashley Jeff, FABIO [address] [place] [address] 07/10/2025 9:30 AM EST Office Visit [facility] MEDICINE [address] [place] [address] Aimee Ivy FNP [address] [place] [address] 08/07/2025 10:00 AM EST Medication Management [facility] MEDICINE [address] [place] [address] Yu Zhang PharmD [address] [place] [address] documented as of this encounter Visit Diagnoses Not on filedocumented in this encounter Care Teams Lease Examiner Relationship Specialty Start Date End Date Aimee Ivy FNP [address] [place] [phone] PCP - General Family Medicine 03/08/25 Yu Zhang PharmD [address] [place] [phone] Pharmacist Pharmacy 05/21/25 documented as of this encounter
--- OUTSIDE RECORDS SUMMARY | 2025-06-20 15:41 | XMS_ITS | Patient Health Record ---
Author Organization [facility] Address [address] [place] [address] Care Team Providers Care Retail Field Representative Name Role Phone Vanessa Guzmán MD Primary Care Provider Unavail able Lee Zurdo Unavailable [phone] Allergies Allergen (clinical drug ingredient) Drug/Non Drug Allergy documented on EMR Reaction Allergy Type Onset Date Status dust and trees (uncoded) Unknown Allergy Active Reason For Referral No Information Medications Medication SIG (Take, Route, Frequency, Duration) Notes Start Date End Date Status amLODIPine Besylate 5 MG Tablet 1 tablet Orally Once a day Active hydroCHLOROthiazide 25 MG Tablet 1 tablet Orally Once a day Active Benicar 40 MG Tablet 1 tablet Orally Onc e a day Active Calcium 600 + D 600-200 MG-U NIT Tablet Orally Active Social History Social History Additional Details Category Social Info Options Details Miscellaneous: Marital status: Occupation: [employer] Section Notes: Nonsmoker; no sig. alcohol Problems Problem Type SNOMED Code ICD Code Onset Dates Problem Status W/U Status Risk Notes Problem Screening for malignant neoplasm of colon (420805016) Encounter for screening for malignant neoplasm of colon (Z12.11) Active confirmed Problem Bad breath - halitosis (80958795) Halitosis (R19.6) Active confirmed Problem Screening for malignant neoplasm of rectum (435787844) Encounter for screening for malignant neoplasm of rectum (Z12.12) Active confirmed Plan Of Treatment No Information Insurance Providers Payer Name Payer Address Payer Phone Subscriber Number Group Number Insured Name Patient Relationship to Insured Coverage Start Date Coverage End Date [facility] [address] [address] [place], [place] [id number] BRENDON ALTAMIRANO Self - patient is the insured Medical (General) History Medical History History ICD Code Colonoscopy 08-11-2007--negative except f or internal hemorrhoids Hypertension Hyperlipidemia Arthiritis in lower back Sleep apnea Denies VT,DM,CVA,Lung disease,renal dise ase Obesity--enrolled at the [facility] weight loss [facility]--she has lost over 20 pounds since September of 2015 Surgical History Surgery Date(Month/Year) appendectomy breast reduction hysterectomy fibroid tumors removal sinus surgery
--- OUTSIDE RECORDS SUMMARY | 2025-06-20 15:42 | XMS_ITS | Clinical Summary ---
Author Organization [employer] Address [address] [facility] 7t [place] [address] Care Team Providers Care Metal Technician Name Role Phone Aimee Ivy ENGINEER GAS PUMPING STATION Primary Care Provider [phone] Yu Zhang PharmD Unavailable [phone] Allergies Active Allergy Reactions Criticality Noted Date Comments Dust Mite Extract Unknown 12/06/2024 Levonorgestrel-Ethinyl Estrad Unknown 2024 Medications * This document contains information received from the source organization and may not represent a complete record from that organization. fluticasone (Flonase) 50 MCG/ACT nasal spray USE 1 SPRAY INTO BOTH NOSTRILS TWICE A DAY Active Tirzepatide-Ronald ght Management (Zepbound) 2.5 MG/0.5ML solution auto-injectorIn dications:Class 2 obesity with body mass index (BMI) of 36.0 to 36.9 in adult, unspecified obesity type, unspecified whether serious comorbidity present Inject 0.5 mL (2.5 mg) under the skin 1 (one) time per week. 2 mL 04/18/20 25 Active Additional Information Patient not taking.Reason: PA needed, message sent to PA team again 06/12, Reported on 06/12/2025 Zoryve 0.3 % cream APPLY TOPICALLY TO THE AFFECTED AREA(S) OF psoriasis EVERY DAY DIRECTED 03/26/20 25 Active traMADol (Ultram) 50 MG tablet Take 1 tablet by mouth if needed in the morning and at bedtime for pain. 04/10/20 25 Active senna-docusate sodium (Senokot-S) 8.6-50 MG tablet Take 2 tablets by mouth Once daily as needed for constipation. Active Cholecalciferol (PA VITAMIN D-3 GUMMY PO) Take 2,000 Units by mouth Once per day. Purchases OTC Active acetaminophen (Tylenol 8 Hour) 650 MG ER tablet Take 650 mg by mouth if needed in the morning and at bedtime for mild pain. Purchases OTC Active Multiple Vitamins-Minera ls (CELEBRATE MULTI-COMPLETE 18 PO) Take 1 tablet by mouth Once per day. Active hydrALAZINE (Apresoline) 50 MG tablet Take 1 tablet (50 mg) by mouth 2 times daily. 180 tablet 1 05/17/20 25 Active traZODone (Desyrel) 50 MG tablet Take 1 tablet (50 mg) by mouth if needed at bedtime for sleep. 30 tablet 1 5 2:17 PM EST 05/17/20 25 Active NIFEdipine XL (Procardia XL) 30 MG 24 hr tabletIndicatio ns:Uncontrolled hypertension Take 1 tablet (30 mg) by mouth Once per day. Do not crush, chew, or split. 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 60 tablet 05/22/20 25 Active atorvastatin (Lipitor) 20 MG tabletIndicatio ns:On statin therapy Take 1 tablet (20 mg) by mouth Once per day. 90 tablet 05/22/20 25 Active cetirizine (ZyrTEC) 10 MG tabletIndicatio ns:Nasal congestion Take 1 tablet (10 mg) by mouth Once per day. 90 tablet 05/22/20 25 Active irbesartan-hydr oCHLOROthiazide (Avalide) 150-12.5 MG tabletIndicatio ns:Essential hypertension Take 2 tablets by mouth in the morning. 60 tablet 5 06/12/20 Active irbesartan-hydr oCHLOROthiazide (Avalide) 150-12.5 MG tablet Take 1 tablet by mouth 2 times daily. 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 Date Type Department Care Team Description 06/13/2025 Telephone [facility] [place] [address] Aimee Ivy FNP Prior Authorization (Zepbound) 06/12/2025 Travel 06/05/2025 Travel 05/27/2025 Results Follow-Up [address] [address] Eli Duarte, GERALDO Vitamin D, 25-Hydroxy, Total, Immunoassay 05/24/2025 Telephone [facility] [place] [address] Jessie Potts, GERALDO 05/24/2025 Orders Only [facility] [place] [address] Chelsea Boyd NP Vitamin D deficiency (Primary Dx) 05/23/2025 Telephone [facility] [place] [address] Aimee Ivy FNP July05/22/2025 Telephone [facility] [place] [address] Yu Zhang PharmD Prior Authorization (Zepbound) 05/21/2025 Refill [facility] [place] [address] Aimee Ivy FNP On statin therapy (Primary Dx); Chronic back pain, unspecified back location, unspecified back pain laterality; 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 [place] [place] [address] Aimee Ivy FNP 04/30/2025 Travel 04/23/2025 Telephone [facility] [place] [address] Jessie Li MD 04/23/2025 Orders Only [facility] [place] [address] Aimee Ivy FNP 04/23/2025 Telephone [facility] [place] [place] [address] Aimee Ivy FNP 04/18/2025 10:00 AM EDT Office Visit [facility] [place] [place] [address] Aimee Ivy, BIGG Uncontrolled hypertension (Primary Dx); Class 2 obesity with body mass index (BMI) of 36.0 to 36.9 in adult, unspecified obesity type, unspecified whether serious comorbidity present; Depression, unspecified depression type 04/18/2025 Travel 04/17/2025 Telephone [facility] [place] [place] [address] Jazz Martínez PharmD 04/15/2025 Telephone [facility] [address] [facility] [place] [address] Puia, Yu, PharmD Referral (Called pt to book appt for REACTOR OPERATOR CDTM HTN & MB start no answer left voicemail to call back the [facility] line to book appt .) 04/15/[address] [address] Aimee Ivy FNP Prior Auth Prescription 04/11/[address] [address] Aimee Ivy FNP CHARTPREP 04/03/[address] [address] Yu Zhang PharmD 04/03/[address] [address] Aimee Ivy FNP Medication 04/02/2025 10:00 AM EDT Office Visit [address] [address] Aimee Ivy FNP Uncontrolled hypertension (Primary Dx); Vaginal itching; Lichen sclerosus; Coccyx pain; 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; Constipation, unspecified constipation type; Perineal pain in female; BV (bacterial vaginosis) 04/02/2025 Results Follow-Up [address] [address] Aimee Ivy FNP Bacterial Vaginosis Panel 04/02/2025 Travel 03/26/2025 9:00 AM EDT Office Visit [address] [address] Aimee Ivy FNP Primary hypertension (Primary Dx); Constipation, unspecified constipation type; 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; Rectal or anal pain; Obstructive sleep apnea syndrome 03/26/2025 Travel 03/25/[address] [address] Aimee Ivy FNP Referral-Sleep Medicine; Referral-Ortho 03/22/2025 10:20 AM EDT Office Visit [facility] [address] [place] [address] Chelsea Boyd, DIANE Hypertension, unspecified type (Primary Dx); Constipation, unspecified constipation type; Coccyx pain; 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 purified surface antigen ) 06/17/2015 Tdap 08/23/2019 Social History Tobacco Use Types Packs/Day Years Used Date Smoking Tobacco: Never Passive Smoke Exposure: Never Smokeless Tobacco: Never Comments:Exposed to second s moke Alcohol Use Standard Drinks/Week Comments Never 0 (1 standard drink = 0.6 oz pur e alcohol) Depression Answer Date Recorded Patient Health Questionnaire-9 Score 8 04/18/2025 Patient Health Questionnaire-9 Score 8 04/18/2025 Last PHQ-9: Questionnaire Data Not on file 0 04/18/2025 Housing Stability Answer Date Recorded What is [...] Answer Date Recorded Patient Health Questionnaire-2 Score 2 04/18/2025 Internet Access Answer Date Recorded Internet Access [...] Sign Reading Time Taken Comments Blood Pressure 122/80 06/12/2025 10:29 AM EST Pulse 84 04/30/2025 3:34 PM EDT Temperature 37.2 C (98.9 F) 04/18/2025 10:11 AM EDT Respiratory Rate 16 04/18/2025 10:11 AM EDT Oxygen Saturation 98% 04/18/2025 10:11 AM EDT Inhaled Oxygen Concentration - - Weight 114 kg (251 lb 6.4 oz) 06/12/2025 10:29 A M EST Height 175.3 cm (5' 9 ) 04/18/2025 10:11 AM EDT Body Mass Index 37.13 04/18/2025 10:11 AM EDT Plan of Treatment Upcoming Encounters Date Type Department Care Team (Late st Contact Info) Description 07/02/2025 9:00 AM EST Nutrition [facility]NUTRITION [address] [place] [address] [place] [address] 07/10/2025 9:30 AM EST Office Visit [facility] [address] [place] [address] Aimee Ivy FNP [address] [place] [address] 08/07/2025 10:00 AM EST Medication Management [facility] [address] [place] [phone] Yu Zhang, DomingaD [address] [place] [address] Health Maintenance Due Date Last Done Comments CT Colonography 1955 Colonoscopy 1955 Colorectal Cancer Screening 1955 FIT DNA/Cologuard 1955 FIT 1955 FOBT 1955 Sigmoidoscopy 1955 Mammogram 1995 Pneumococcal Vaccine: 50+ Years (1 of 1 - PCV) 2005 Zoster Vaccines (1 of 2) 2005 COVID-19 Vaccine (4 - 2024-2 6 season) 2025 08/11/2021, 12/09/2020, 11/11/2020 Influenza Vaccine (#1) 2025 , 06/17/2015 Dental Oral Exam 06/09/2025 12/06/2024 Dental Prophylaxis 06/15/2025 12/12/2024 Dental X-Ray: Bitewings 12/07/2025 12/06/2024 Alcohol/Substance Use Screening 03/08/2026 03/08/2025 SDOH Screening 03/08/2026 03/08/2025 Depression Screening 04/18/2026 04/18/2025, 04/18/2025 Tobacco Screening 04/18/2026 04/18/2025 Dental X-Ray: Full Mouth 12/08/2027 12/06/2024 DTaP/Tdap/Td Vaccines (2 - T d or Tdap) 08/23/2029 08/23/2019 Lipid Panel 03/09/2030 03/09/2025 RSV Patients and [...] Procedure Name Priority Date/Time Associated Diagnosis Comments BASIC METABOLIC PANEL Routine 05/24/2025 11:03 AM EDT Vitamin D deficiency HEPATIC FUNCTION PANEL Routine 05/24/2025 11:03 AM EDT Vitamin D deficiency VITAMIN D,25-OH,TOTAL,IA Routine 05/24/2025 11:03 AM EDT Vitamin D deficiency AMB REFERRAL TO ORTHOPAEDIC SURGERY STAT 04/17/2025 Coccyx pain 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 BACTERIAL VAGINOSIS PANEL Routine 04/02/2025 11:58 AM EDT Vaginal itching HEPATITIS C AB W/REFL TO HCV RNA, QN, PCR Routine 03/09/2025 9:51 AM EDT Need for hepatitis C screening test LIPID PANEL, STANDARD Routine 03/09/2025 9:51 AM EDT Class 2 obesity with body mass index (BMI) of 36.0 to 36.9 in adult, unspecified obesity type, unspecified whether serious comorbidity present PROPHYLAXIS - ADULT Routine 12/12/2024 1 0:00 AM EDT INTRAORAL - COMPLETE SERIES OF RADIOGRAPHIC IMAGES Routine 12/06/2024 1:30 PM EDT PERIODIC ORAL EVALUATION - ESTABLISHED PATIENT Routine 12/06/2024 1:30 PM EDT from Last 3 Months or Most Recently Relevant to Health Maintenance Results * Vitamin D, 25-Hydroxy, Total, Immunoassay (05/24/2025 11:03 AM EDT) Vitamin D 25-OH Total 61.5 >30 ng/mL [facility] Comment: Health Based Reference Values*< 20 ng/mL [id number] ng/mL Insufficient> 30 ng/mL Sufficient*Yumiko ASTUDILLO. N Engl J Med. 2007;357:266-280There is no well-established upper level of normal vitamin Dlevels. Some laboratories use 50 ng/mL as an upper limit ofnormal. However, toxicity is patient-dependent and may occurat any level. Careful correlation with the patient'spresentation is necessary and, if there is concern forvitamin D toxicity, treatment should be consideredirrespective of the serum level.Care must be taken in interpreting Vitamin D results fromdifferent laboratories and methodologies. Published datademonstrated that results from patients undergoinghemodialysis may show a negative bias when tested withvarious automated 25-OH vitamin D assays when compared toLC-MS/MS.When testing samples from patients whose predominant form ofVitamin D is Vitamin D2, such as patients receiving VitaminD2 supplementation, results that are subtherapeutic shouldbe confirmed with another method such as LC-MS/MS. Blood Venous blood specimen / Unknown 05/24/2025 11:03 AM EDT 05/24/2025 1:25 PM EDT us Chelsea Boyd REACTOR OPERATOR LAB BLOOD ORDERABLES Final Resul t Performing Organization Address [facility] Co de Phone Number [facility] [address] [place] [phone] * Hepatic Function Panel (05/24/2025 11:03 AM EDT) Bilirubin, Total 0.6 0.0 - 1.0 mg/dL [facility] Bilirubin, Direct 0.2 0.0 - 0.5 mg/dL [facility] Aspartate Amino Transferase 23 5 - 31 U/L [facility] Alanine Aminotransferase 24 0 - 31 U/L [facility] Total Protein 7.2 6.5 - 8.0 g/dL [facility] Albumin Level 4.2 3.5 - 5.0 g/dL [facility] Alkaline Phosphatase 70 39 - 117 U/L [facility] 05/24/2025 11:0 3 AM EDT 05/24/2025 1:25 PM EDT us Aimee Ivy ENGINEER GAS PUMPING STATION LAB BLOOD ORDERABLES Final Res ult Performing Organization Address [facility]/ZIP Co de Phone Number [facility] [address] [place] [phone] * (ABNORMAL) Basic Metabolic Panel (05/24/2025 11:03 AM EDT) Sodium 143 135 - 145 mmol/L [facility] Potassium 4.1 3.3 - 5.1 mmol/L [facility] Chloride 106 96 - 108 mmol/L [facility] Carbon Dioxide 31(H) 22 - 29 mmol/L [facility] Anion Gap 10(L) 12 - 20 [facility] Urea Nitrogen (BUN) 21(H) 9 - 16 mg/dL [facility] Creatinine, Serum 0.86 0.5 - 1.4 mg/dL [facility] Estimated Glomerular Filt Rate >60 [facility] Comment:Chronic Kidney Disea se: Estimated GFR < 60 mL/min/[id number] Kidney Disease: Estimated GFR < 15 mL/min/1.73m2 Glucose 97 60 - 115 mg/dL [facility] Calcium 9.3 8.4 - 10.2 mg/dL [facility] 05/24/2025 11:0 3 AM EDT 05/24/2025 1:25 PM EDT us Aimee Ivy ENGINEER GAS PUMPING STATION LAB BLOOD ORDERABLES Final Res ult [facility] [address] [place] [address] [phone] * Referral to Orthopaedic Surgery (04/17/2025) us Chelsea Boyd REACTOR OPERATOR OUTPATIENT REFERRAL ORDERABLES F inal Result * (ABNORMAL) Bacterial Vaginosis Panel (04/02/2025 11:58 AM EDT) Pathologist [facility] TRICHOMONAS VAGINALIS DETECTION BY PCR NOT DETECTED Not Detect [facility] BACTERIAL VAGINOSIS DETECTION BY PCR POSITIVE(A) Negative [facility] Comment:The BV organism targ ets of the Xpert Xpress MVP test can becommensal in women; Xpert Xpress MVP positive results forbacterial vaginosis should be considered in conjunction withother clinical and patient information to determine thedisease status. Organisms that are not detected by the XpertXpress MVP test have also been reported to be associatedwith BV and aerobic vaginitis.The Xpert Xpress MVP test performance has not been evaluatedin patients under the age of 14. KEISHA GROUP DETECTION BY PCR NOT DETECTED Not Detect [facility] Keisha glab krusei PCR NOT DETECTED Not Detect [facility] Swab Vaginal structure / Unknown 04/02/2025 11:58 AM EDT 04/02/2025 6:20 PM EDT [facility] LAB MICROBIOLOGY - GENERAL ORD ERABLES Final Result Performing Organization Address [facility]/ZIP Co de Phone Number [facility] [address] [place] [phone] * Hepatitis C Antibody with Reflex to HCV, RNA, Quantitative, Real-Time PCR (03/09/2025 9:51 AM EDT) Hepatitis C Antibody Nonreactive Nonreactive [facility] Comment:Antibodies to HCV no t detected; does not exclude early acuteHCV infection. Blood Venous blood specimen / Unknown 03/09/2025 9:51 AM EDT 03/09/2025 9:51 AM EDT [facility] LAB BLOOD ORDERABLES Final Res ult Performing Organization Address City/[facility]/ZIP Co de Phone Number [facility] [address] [place] [phone] [phone] * Lipid Panel (03/09/2025 9:51 AM EDT) Triglycerides 64 <150 mg/dL [facility] Comment:Desirable Triglyceri de: less than 150 mg/dLBorderline High Triglyceride 150-199 mg/dLHigh Triglyceride: 200-499 mg/dLVery High Triglyceride: greater than or equal to 5OO mg/dL Cholesterol 160 <200 mg/dL [facility] Comment:Desirable Cholestero l: less than 200 mg/dLBorderline High Cholesterol: 200-239 mg/dLHigh Cholesterol: greater than 239 mg/dL LDL Cholesterol Calculated 99 <100 mg/dL [facility] Comment:Desirable LDL: less than 100 mg/dLNear Optimal/Above Optimal LDL: 110- 129 mg/dLBorderline High LDL: 130-159 mg/dLHigh LDL: 160-189 mg/dLVery High LDL: greater than or equal to 190 mg/dL HDL Cholesterol 49 >40 mg/dL [facility] Comment:Desirable HDL: great er than 40 mg/dL Note: This HDL assay may give artificially low results in patients with liver disease. Blood Venous blood specimen / Unknown 03/09/2025 9:51 AM EDT 03/09/2025 9:51 AM EDT us Aimeelisa Ivy ENGINEER GAS PUMPING STATION LAB BLOOD ORDERABLES Final Res ult [facility] [address] [place] [phone] from Last 3 Months or Most Recently Relevant to [place] [id number] [facility] FULL DENTAL - HSN FULL (MEDICAID) Care Teams Metal Technician Relationship Specialty Start Date End Date Aimee Ivy FNP [address] [place] [address] PCP - General Family Medicine 03/08/25 Yu Zhang PharmD [address] [place] [phone] Pharmacist Pharmacy 05/21/25
--- OUTSIDE RECORDS SUMMARY | 2025-06-20 15:42 | XMS_ITS | Patient Health Record ---
Author Organization [employer] [facility] Address [address] [place] [address] Care Team Providers Care Piper Helper Name Role Phone Geo Hager MD Primary Care Provider González berkowitz Reason For Referral No Information Medications Medication SIG (Take, Route, Frequency, Duration) Notes Start Date End Date Status Vitamin D Active hydroCHLOROthiazide 25 MG Orally Active Benicar 40 MG Orally Active Problems Problem Type SNOMED Code ICD Code Onset Dates Problem Status W/U Status Risk Notes Problem Osteoporosis (91654252) Osteoporosis (733.0) Active confirmed Problem Essential hypertension (31932999) Essential (primary) hypertension (I10) Active confirmed Problem Obesity (364240685) Obesity, unspecified (E66.9) Active confirmed Problem Sleep apnea (84317469) Sleep apnea, unspecified (G47.30) Active confirmed Problem Psoriasis (9811771) Psoriasis, unspecified (L40.9) Active confirmed Plan Of Treatment No Information Insurance Providers Payer Name Payer Address Payer Phone Subscriber Number Group Number Insured Name Patient Relationship to Insured Coverage Start Date Coverage End Date [facility] [address] [place] [address] [id number] BRENDON ALTAMIRANO Self - patient is the insured Medical (General) History Medical History History ICD Code Essential (primary) hypertension Essential (primary) hypertension Sleep apnea, unspecified Osteoporosis Obesity, unspecified Psoriasis, unspecified Surgical History Surgery Date(Month/Year) APPENDECTOMY BREAST REDUCTION laparoscopic hysterectomy, ovaries remai n age 39 Myomectomy
== END 2025-06-20 11:31 | disposition home or self-care (01) ==
LOC: HO.HWSM 10:37
PROVIDERS: PCP Nurse Practitioner Family; Visit Provider Advanced Practice Midwife
DX: N77.1 Vaginitis, vulvitis and vulvovaginitis in diseases classified elsewhere (principal); N39.3 Stress incontinence (female) (male); Z78.0 Asymptomatic menopausal state; Z90.710 Acquired absence of both cervix and uterus; N90.4 Leukoplakia of vulva
CPT/HCPCS: 99204